=== PATIENT | female | born 1985 | race Caucasian/White ===

== ENCOUNTER → 2016-05-26 | Outpatient (CLI) | payer BC ==
[~2016-05-26] MED LIST: LEVO100T PO; PREN1TAB29
[2016-05-26 14:36] LABS: URINE APPEARANCE CLOUDY (CLEAR); URINE BILIRUBIN NEG (NEG); URINE COLOR YELLOW; URINE EPITHELIAL CELL AUTO >30 /lpf (0-5); URINE NITRITE NEG (NEG); URINE PH 7.5 (4.5-7.5); URINE SPECIFIC GRAVITY 1.008 (1.000-1.030); UROBILINOGEN NEG (NEG)
[2016-05-26 14:47] LABS: MANUAL MICROSCOPIC REQUIRED? NO; REVIEW REQ? YES; SULFASALICYLIC ACID NEG (NEG)
== END | disposition home or self-care (01) ==
LOC: C.LAB1850 13:41
PROVIDERS: ATTEND Obstetrics & Gynecology
DX: R39.9 Unspecified symptoms and signs involving the genitourinary system (principal)

== ENCOUNTER 2022-10-05 15:16 | Inpatient (IN) ==
[2022-10-05] MEDS ORDERED: SODIUM CHLORIDE 0.9% 1000ML 1,000 ML IV SCH (15:30)
--- NOTE | 2022-10-05 15:32 | Emergency Department Note ---
Impression & Plan Seizure ED Provider Note NAME: KYLEIGH DEVRIES AGE: 36 SEX: F : 1985 ARRIVES VIA: Ambulance INFORMANT: Patient ED PROVIDER(S): Pavan Goncalves DO CHIEF COMPLAINT: seizure HPI: Patient is a 36-year-old female who presents to the ER with past medical history of COVID for a seizure. She was at the [facility] and had 2 episodes where she passed out and was shaking. On arrival of EMS she was found to be postictal per report from EMS. She notes that she does not remember any of this. She had no complaints before or following the episode. She notes that now she does feel little nauseated and dizzy. No headache or change in vision preceding or following this event. No chest pain or shortness of breath preceding or following. No weakness or numbness in the arms or legs. No dysuria, urgency, or frequency. No other exacerbating or remitting factors. Ileana montiel admits to drinking alcohol very intermittently. She denies any other drugs other than levothyroxine. PAST MEDICAL HISTORY:See Below PAST SURGICAL HISTORY:See Below FAMILY HISTORY:See Below SOCIAL HISTORY:See Below HOME MEDICATIONS:See Below ALLERGIES:See Below VITALS:See Below PHYSICAL EXAMINATION: GENERAL: Sitting up in bed, alert, well appearing, well nourished, no distress, non-toxic EYE EXAM: normal conjunctiva. PERRL and EOM's intact. OROPHARYNX: no exudate, no erythema, lips, buccal mucosa, and tongue normal and mucous membranes are moist NECK: supple, no nuchal rigidity, no adenopathy, non-tender LUNGS: Clear to auscultation. Normal chest wall mechanics HEART: no murmurs, S1 normal and S2 normal ABDOMEN: abdomen soft, non-tender, normo-active bowel sounds, no masses, no rebound or guarding. BACK: Back is symmetrical on inspection and there is no deformity, no midline tenderness, no CVA tenderness. SKIN: no rashes and no bruising UPPER EXTREMITIES: upper extremities are grossly normal. LOWER EXTREMITIES: No pitting edema. NEURO EXAM: Normal sensorium, cranial nerves II-XII intact, normal speech, no weakness of arms, no weakness of legs. No drift. Finger to nose intact. Gross sensation intact. MEDICAL DECISION MAKING: Patient is a 36-year-old female who had 2 witnessed seizures and was brought in by EMS found to be postictal by EMS per report. IV was established blood work was obtained. Labs show no significant leukocytosis or anemia. BMP with mild hypokalemia 3.1. This was repleted orally. LFTs bilirubin was unremarkable. Troponin was negative. UA was clean. negative. Tox was negative. Patient notes that she drinks intermittently and not regularly. CT of the head was negative. Chest x-ray was clean. With her having 2 seizures she was given 2 g of Keppra. She was discussed with the hospitalist for observation. Triage Nursing notes reviewed. Limited review of prior medical records performed Vital Signs: reviewed and remarkable for no significant abnormalities Differential diagnosis: Differential diagnosis includes etiologies such as infection, hypoglycemia, electrolyte abnormalities, cardiac sources, intracerebral event, trauma, toxicologic, neurologic, as well as others were entertained. ER treatment provided: See below Diagnostics interpreted by me include EKG and cardiac monitoring as listed below: -Cardiac Monitoring: An order was placed for continuous cardiac monitoring. The monitor shows a rate of 56 with sinus rhythm. -ECG: Sinus rhythm rate of 46 Normal axis No PVCs QTc 418 -Laboratory studies:Interpreted by me as stated above in MDM and shown below. Imaging studies: Xrays: As interpreted by me: Portable AP upright 1 view of the chest shows no pneumonia CTs show: CT head was negative Consultation(s): As described in MDM Procedures:none Critical Care: None Past Med/Surg History Medical History (Updated 10/05/22 @ 21:02 by Pavan Goncalves DO) Hypothyroidism Surgical History History of dental surgery history of dental implant Family History Other Diabetes Dyslipidemia Stroke Social History (Updated 10/05/22 @ 19:32 by Larisa Andrew PA-C) Smoking Status: Never smoker Hx Alcohol Use: Yes (4 drinks a week) Hx Substance Use: No Preferred Language: Faroese marital status: Current Living Situation: Family current occupational status: employed Feels Safe at Home: Yes Allergies Allergies Allergy/AdvReac Type Severity Reaction Status Date / Time No Known Allergies Allergy Unverified 12/29/15 03:22 Home Meds Home Medications Medication Instructions Recorded Confirmed levothyroxine 100 mcg tablet 100 mcg PO DAILYBB 10/05/22 10/05/22 Results & Data (ED) Vital Signs Vital Signs - 24 hr 10/05/22 15:24 10/05/22 15:41 10/05/22 15:41 Temperature 36.9 C Temperature Source Oral Pulse Rate 52 L 50 L 48 L Pulse Rate from SpO2 Sensor 47 L Respiratory Rate 18 17 Blood Pressure 153/87 H Blood Pressure Mean 109 Pulse Oximetry 100 92 Oxygen Delivery Method Room Air Sepsis Recent Fever Within 48 Hours No Sepsis New/Unexplained Change in Mental Status No Sepsis Action Taken by Nursing No Action Required 10/05/22 16:00 10/05/22 16:00 10/05/22 16:30 Temperature Temperature Source Pulse Rate 49 L Pulse Rate from SpO2 Sensor 49 L Respiratory Rate 24 Blood Pressure 144/92 H 143/92 H Blood Pressure Mean 123 126 Pulse Oximetry 100 Oxygen Delivery Method Sepsis Recent Fever Within 48 Hours Sepsis New/Unexplained Change in Mental Status Sepsis Action Taken by Nursing 10/05/22 16:30 10/05/22 17:00 10/05/22 17:00 Temperature Temperature Source Pulse Rate 56 L 53 L Pulse Rate from SpO2 Sensor 54 L 52 L Respiratory Rate 20 23 Blood Pressure 161/106 H Blood Pressure Mean 140 Pulse Oximetry 99 100 Oxygen Delivery Method Sepsis Recent Fever Within 48 Hours Sepsis New/Unexplained Change in Mental Status Sepsis Action Taken by Nursing 10/05/22 19:45 10/05/22 20:12 Temperature Temperature Source Pulse Rate 55 L Pulse Rate from SpO2 Sensor Respiratory Rate 21 Blood Pressure 141/87 H Blood Pressure Mean 105 Pulse Oximetry 92 96 Oxygen Delivery Method Room Air Sepsis Recent Fever Within 48 Hours Sepsis New/Unexplained Change in Mental Status Sepsis Action Taken by Nursing Laboratory Data 10/05/22 15:42 10/05/22 15:42 Lab Results 10/05/22 10/05/22 10/05/22 Range/Units 15:42 15:42 17:15 WBC 8.28 (4.8-10.8) K/ul RBC 4.33 (4.20-5.40) M/uL Hgb 12.9 (12.0-16.0) g/dl Hct 37.3 (37.0-47.0) % MCV 86.1 (80.0-100.0) fL MCH 29.8 (25.0-34.0) pg MCHC 34.6 (32.0-36.0) g/dL RDW Std Deviation 38.1 (36.4-46.3) fL RDW Coeff of Yoel 12.1 (11.5-14.5) % Plt Count 251 (130-400) K/uL MPV 10.4 (9.4-12.4) fL Immature Gran % (Auto) 0.1 % Neut % (Auto) 49.3 % Lymph % (Auto) 41.4 % Scott % (Auto) 7.0 % Eos % (Auto) 1.4 % Baso % (Auto) 0.8 % Neut # (Auto) 4.07 (1.40-6.50) K/uL Lymph # (Auto) 3.43 H (1.2-3.4) K/uL Scott # (Auto) 0.58 (0.11-0.59) K/uL Eos # (Auto) 0.12 (0-0.50) K/uL Baso # (Auto) 0.07 (0-0.2) K/uL Immature Gran # (Auto) 0.01 (0.01-0.20) K/uL Sodium 137 (136-145) mmol/L Potassium 3.1 L (3.5-5.1) mmol/L Chloride 104 (98-107) mmol/L Carbon Dioxide 22 (21-32) mmol/L Anion Gap 11 (3-11) BUN 15 (6-23) mg/dl Creatinine 0.76 (0.6-1.2) mg/dl Est Cr Clr Drug Dosing 105.4 ml/min Est GFR ( Amer) 115.3 ml/min Est GFR (Non-Af Amer) 99.5 ml/min BUN/Creatinine Ratio 19.7 (10-20) Glucose 101 H (70-99(Fasting)) mg/dl Calcium 9.1 (8.6-10.3) mg/dl Magnesium 1.9 (1.7-2.4) mg/dl Total Bilirubin 1.1 H (0.2-1.0) mg/dl AST 15 (13-39) U/L ALT 9 (7-52) U/L Alkaline Phosphatase 29 L (34-104) U/L Troponin I High Sens 7.8 (0-14) pg/ml Total Protein 7.1 (6.0-8.3) gm/dl Albumin 4.2 (3.4-5.0) gm/dl Globulin 2.9 (2.5-4.0) gm/dl Albumin/Globulin Ratio 1.4 (0.9-2) Urine Color Yellow Urine Appearance Clear (Clear) Urine pH 7.5 (4.5-7.5) Ur Specific [place] 1.012 (1.000-1.030) Urine Protein Negative (Negative) Urine Glucose (UA) Negative (Negative) Urine Ketones Negative (Negative) Urine Blood Negative (Negative) Urine Nitrite Negative (Negative) Urine Bilirubin Negative (Negative) Urine Urobilinogen Negative (Negative) Ur Leukocyte Esterase Negative (Negative) POC Ur Test (NEG) Urine Opiates Screen (Neg) Ur Methadone, Qual (Neg) Urine Barbiturates (Neg) Ur Phencyclidine (PCP) (Neg) U Amphetamin/Meth Scrn (Neg) MDMA (Ecstasy) Screen (Neg) U Benzodiazepines Scrn (Neg) Ur Cocaine Metabolite (Neg) U Marijuana (THC) Screen (Neg) SARS-CoV-2, RNA, NAAT (NEGATIVE) 10/05/22 10/05/22 10/05/22 Range/Units 17:15 17:15 18:00 WBC (4.8-10.8) K/ul RBC (4.20-5.40) M/uL Hgb (12.0-16.0) g/dl Hct (37.0-47.0) % MCV (80.0-100.0) fL MCH (25.0-34.0) pg MCHC (32.0-36.0) g/dL RDW Std Deviation (36.4-46.3) fL RDW Coeff of Yoel (11.5-14.5) % Plt Count (130-400) K/uL MPV (9.4-12.4) fL Immature Gran % (Auto) % Neut % (Auto) % Lymph % (Auto) % Scott % (Auto) % Eos % (Auto) % Baso % (Auto) % Neut # (Auto) (1.40-6.50) K/uL Lymph # (Auto) (1.2-3.4) K/uL Scott # (Auto) (0.11-0.59) K/uL Eos # (Auto) (0-0.50) K/uL Baso # (Auto) (0-0.2) K/uL Immature Gran # (Auto) (0.01-0.20) K/uL Sodium (136-145) mmol/L Potassium (3.5-5.1) mmol/L Chloride (98-107) mmol/L Carbon Dioxide (21-32) mmol/L Anion Gap (3-11) BUN (6-23) mg/dl Creatinine (0.6-1.2) mg/dl Est Cr Clr Drug Dosing ml/min Est GFR ( Amer) ml/min Est GFR (Non-Af Amer) ml/min BUN/Creatinine Ratio (10-20) Glucose (70-99(Fasting)) mg/dl Calcium (8.6-10.3) mg/dl Magnesium (1.7-2.4) mg/dl Total Bilirubin (0.2-1.0) mg/dl AST (13-39) U/L ALT (7-52) U/L Alkaline Phosphatase (34-104) U/L Troponin I High Sens (0-14) pg/ml Total Protein (6.0-8.3) gm/dl Albumin (3.4-5.0) gm/dl Globulin (2.5-4.0) gm/dl Albumin/Globulin Ratio (0.9-2) Urine Color Urine Appearance (Clear) Urine pH (4.5-7.5) Ur Specific [place] (1.000-1.030) Urine Protein (Negative) Urine Glucose (UA) (Negative) Urine Ketones (Negative) Urine Blood (Negative) Urine Nitrite (Negative) Urine Bilirubin (Negative) Urine Urobilinogen (Negative) Ur Leukocyte Esterase (Negative) POC Ur Test NEG (NEG) Urine Opiates Screen Neg (Neg) Ur Methadone, Qual Neg (Neg) Urine Barbiturates Neg (Neg) Ur Phencyclidine (PCP) Neg (Neg) U Amphetamin/Meth Scrn Neg (Neg) MDMA (Ecstasy) Screen Neg (Neg) U Benzodiazepines Scrn Neg (Neg) Ur Cocaine Metabolite Neg (Neg) U Marijuana (THC) Screen Neg (Neg) SARS-CoV-2, RNA, NAAT NEGATIVE (NEGATIVE) Administered Medications Discontinued Medications Sodium Chloride (Nss 1000ml) 1,000 mls @ 999 mls/hr IV .Q1H1M LIBIA Stop: 10/05/22 16:30 Last Infusion: 10/05/22 19:11 Dose: 0 mls/hr Documented By: Admin: 10/05/22 15:45 Dose: 999 mls/hr Documented By: KOSTAS Levetiracetam 2,000 mg/ Sodium (Chloride) 270 mls @ 999 mls/hr IV NOW STA Stop: 10/05/22 15:48 Last Infusion: 10/05/22 16:00 Dose: 0 mls/hr Documented By: Admin: 10/05/22 15:45 Dose: 999 mls/hr Documented By: KOSTAS Potassium Chloride (Potassium Chloride Crtab 20 Meq Tabcr) 40 meq PO NOW STA Stop: 10/05/22 16:32 Last Admin: 10/05/22 17:21 Dose: 40 meq Documented By: KOSTAS Imaging Data Radiologist's Impression: Chest X-Ray 10/05/22 16:31 XR chest 1V portable CLINICAL HISTORY: seizure TECHNIQUE: Single frontal radiograph of the chest was obtained. Comparison: None available at the time of this dictation. FINDINGS: No lines and tubes are seen. The cardiomediastinal silhouette is normal. The lungs are clear. No evidence of pleural effusion or pneumothorax. IMPRESSION: No acute chest disease. ACT 112: Negative or not required by law. Electronically signed by: Saji Brooke M.D. 10/05/2022 5:[address] 10/05/22 16:31 CT head/brain wo con CLINICAL HISTORY: seizure Technique: Contiguous axial CT images of the head were acquired from the base of the skull to the vertex without intravenous contrast administration. Images were viewed in brain, subdural and bone windows. Automated dose lowering techniques and/or adjustment according to patient size were utilized for this exam. Comparison: Comparison is made to CTA head and neck 11/11/2021 Findings: The ventricles, basal cisterns, and cerebral sulci are normal. There is no acute intracranial hemorrhage or evidence of acute territorial infarction. Neither mass effect, shift of the midline structures, nor abnormal extra-axial fluid col lections are shown. Imaged portions of the paranasal sinuses and mastoid air cells are clear. The orbits appear normal. There are no acute fractures of the calvaria or scalp swelling. Impression: No acute intracranial hemorrhage, no evidence of acute territorial infarction or other acute intracranial disease process. ACT 112: Negative or not required by law. Electronically signed by: Saji Brooke M.D. 10/05/2022 5:25 PM Discharge Plan Visit Data Chief Complaint: Seizure Stated Complaint: SEIZURES, NO HISTORY OF ED Provider: Pavan Goncalves Discharge Problem: Seizure Forms Stand Alone Forms: My [facility] Prescriptions Prescriptions: No Action levothyroxine 100 mcg tablet 100 mcg PO DAILYBB Referrals Referrals: Danny Thurston MD [Outside Practitioners] -
[2022-10-05 16:02] LABS: Basophils # (auto) 0.07 K/uL (0-0.2); Basophils % (auto) 0.8 %; Eosinophils # (auto) 0.12 K/uL (0-0.50); Eosinophils % (auto) 1.4 %; Hematocrit (blood only) 37.3 % (37.0-47.0); Hemoglobin 12.9 g/dl (12.0-16.0); Immature Granulocytes # (auto) 0.01 K/uL (0.01-0.20); Immature Granulocytes % (auto) 0.1 %; Lymphocytes # (auto) 3.43 K/uL (1.2-3.4); Lymphocytes % (auto) 41.4 %; Mean Corpuscular Hemoglobin 29.8 pg (25.0-34.0); Mean Corpuscular Hgb Conc 34.6 g/dL (32.0-36.0); Mean Corpuscular Volume 86.1 fL (80.0-100.0); Mean Platelet Volume 10.4 fL (9.4-12.4); Monocytes # (auto) 0.58 K/uL (0.11-0.59); Neutrophils # (auto) 4.07 K/uL (1.40-6.50); Neutrophils % (auto) 49.3 %; Platelet Count 251 K/uL (130-400); RDW Coefficient of Variation 12.1 % (11.5-14.5); RDW Standard Deviation 38.1 fL (36.4-46.3); Red Blood Count 4.33 M/uL (4.20-5.40); White Blood Count 8.28 K/ul (4.8-10.8)
[2022-10-05 16:19] LABS: Albumin Globulin Ratio 1.4 (0.9-2); Albumin Level 4.2 gm/dl (3.4-5.0); BUN Creatinine Ratio 19.7 (10-20); Bilirubin,Total 1.1 mg/dl (0.2-1.0); Calcium 9.1 mg/dl (8.6-10.3); Creatinine Clr Calc Pharmacy 105.4 ml/min; Est GFR (African American) 115.3 ml/min; Est GFR (Non-African American) 99.5 ml/min; Globulin 2.9 gm/dl (2.5-4.0); Potassium 3.1 mmol/L (3.5-5.1); Total Protein 7.1 gm/dl (6.0-8.3)
[2022-10-05] MEDS ORDERED: POTASSIUM CHLORIDE CRTAB 20 MEQ TABCR PO STA ×2 (16:31→18:26)
--- NOTE | 2022-10-05 17:17 | XRay Report ---
XR chest 1V portable CLINICAL HISTORY: seizure TECHNIQUE: Single frontal radiograph of the chest was obtained. Comparison: None available at the time of this dictation. FINDINGS: No lines and tubes are seen. The cardiomediastinal silhouette is normal. The lungs are clear. No evid ence of pleural effusion or pneumothorax. IMPRESSION: No acute chest disease. ACT 112: Negative or not required by law. Electronically signed by: Saji Brooke M.D. 10/05/2022 5:16 PM
--- NOTE | 2022-10-05 17:27 | CT Scan Report ---
CT head/brain wo con CLINICAL HISTORY: seizure Technique: Contiguous axial CT images of the head were acquired from the base of the skull to the xander daksha without intravenous contrast administration. Images were viewed in brain, subdural and bone [facility] . Automated dose lowering techniques and/or adjustment according to patient size were utilized for this exam. Comparison: Comparison is made to CTA head and neck 11/11/2021 Findings: The ventricles, basal cisterns, and cerebral sulci are normal. There is no acute intracranial hemorrh age or evidence of acute territorial infarction. Neither mass effect, shift of the midline structures , nor abnormal extra-axial fluid collections are shown. Imaged portions of the paranasal sinuses and mastoid air cells are clear. The orbits appear normal. There are no acute fractures of the calvaria or scalp swelling. Impression: No acute intracranial hemorrhage, no evidence of acute territorial infarction or other acute intracra nial disease process. ACT 112: Negative or not required by law. Electronically signed by: Saji Brooke M.D. 10/05/2022 5:25 PM
[2022-10-05 17:45] LABS: Appearance Urine Clear (Clear); Bilirubin Urine Negative (Negative); Blood Urine Negative (Negative); Color Urine Yellow; Glucose Urine UA Negative (Negative); Ketones Urine Negative (Negative); Leukocyte Esterase Urine Negative (Negative); Nitrite Urine Negative (Negative); Protein Urine Negative (Negative); Specific Gravity Urine 1.012 (1.000-1.030); Urobilinogen Urine Negative (Negative); pH Urine 7.5 (4.5-7.5)
--- NOTE | 2022-10-05 18:00 | History & Physical Report ---
Date of Service October 05, 2022 Assessment & Plan (1) Seizure: Plan: Patient is 36-year-old female with PMH hypothyroidism presented to ER with complaint of seizure that occurred prior to arrival today. +loss of control of bladder. Reported postictal. Currently back to baseline CT head: No acute intracranial hemorrhage, no evidence of acute territorial infarction or other acute intracranial disease process. CXR: No acute infiltrate No leukocytosis. K: 3.1, no other significant electrolyte abnormality. UA negative, negative urine drug screen. Negative urine . Negative SARS-CoV-2. In ER given 1 L NSS, Keppra 2000 mg IV Seizure precautions Keppra 500 mg twice daily EEG MRI brain if able. Patient reports dental implant approximately 6 months ago. Will try to check MRI compatibility Neurology consult (2) Hypokalemia: Plan: In ER given 40 mg potassium chloride p.o. Replace with additional 20 mg potassium chloride p.o. BMP tonight Magnesium: 1.9 BMP in a.m. (3) Elevated BP without diagnosis of hypertension: Plan: Initial BP in ER 161/106 however has been downtrending throughout ER course Monitor BP (4) Hypothyroidism: Plan: Continue levothyroxine TSH on a.m. labs DVT Prophylaxis SCDs Full Code as per discussion with pt Follows with Dr Morales for routine care Pt was seen and care coordinated with Dr Ochoa. See addendum I spent a total of 75 minutes reviewing notes, outpatient records, labs, medication, coordinating, documenting and providing care for this patient excluding time spent in the performance of separately billed services. History of Present Illness Chief Complaint: Seizure Primary Care Provider: Claudia Morales MD Patient is 36-year-old female with PMH hypothyroidism presented to ER with complaint of seizure. Patients states was at the spa today. She had massage, facial, pedicure. She was feeling her normal health. Then she was sitting ge tting her nails done when it is reported patient appeared to have loss of consciousness, had noted jerking movements. Bystander reported patient's lips appeared blue. Patient had loss of control of bladder. It is reported when EMS arrived patient appeared postictal and was not alert or oriented. Is reported approximately 10 minutes later patient was alert and oriented. Patient states that she remembers somebody holding her head and shoulders and the next thing she remembers is states remembers being in ambulance and feeling nauseated. Currently patient states feels a little nauseated with sitting up or standing. Denies recent head injury. Reports history concussion 2 years ago. Denies history of seizures. Denies family history of seizures. States drank one glass champagne today. Denies drug use. 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 Denies any known chemical exposures. Denies fever/chills, diaphoresis, vomiting, diarrhea, loss of control of bowels, ST, dizziness, vision changes, neck pain, CP, SOB, palpitations, cough, sore throat, rhinorrhea, abdominal pain, paresthesias, extremity weakness, extremity edema, rashes, urinary symptoms. Allergies Allergy/AdvReac Type Severity Reaction Status Date / Time No Known Allergies Allergy Unverified 12/29/15 03:22 Home Medications Medication Instructions Recorded Confirmed Type levothyroxine 100 mcg tablet 100 mcg PO DAILYBB 10/05/22 10/05/22 History Past Med/Surg History Medical History (Updated 10/05/22 @ 19:33 by Larisa Andrew PA-C) Hypothyroidism Surgical History History of dental surgery history of dental implant Family History Other Diabetes Dyslipidemia Stroke Social History (Updated 10/05/22 @ 19:32 by Larisa Andrew PA-C) Smoking Status: Never smoker Hx Alcohol Use: Yes (4 drinks a week) Hx Substance Use: No Preferred Language: Ugandan marital status: Current Living Situation: Family current occupational status: employed Feels Safe at Home: Yes Review of Systems Review of Systems: All systems reviewed & are unremarkable except as noted in HPI & below Physical Exam Physical Exam: PE per Dr Ochoa Results & Data Results & Data Vital Signs (Past 12 Hours) Vital Signs Temp Pulse Resp BP Pulse Ox O2 Del Method 10/05/22 17:00 53 L 23 100 10/05/22 17:00 161/106 H 10/05/22 16:30 56 L 20 99 10/05/22 16:30 143/92 H 10/05/22 16:00 49 L 24 100 10/05/22 16:00 144/92 H 10/05/22 15:41 48 L 17 92 10/05/22 15:41 50 L 10/05/22 15:24 36.9 C 52 L 18 153/87 H 100 Room Air Laboratory Results Short CBC 10/05/22 Range/Units 15:42 WBC 8.28 (4.8-10.8) K/ul Hgb 12.9 (12.0-16.0) g/dl Hct 37.3 (37.0-47.0) % Plt Count 251 (130-400) K/uL BMP 10/05/22 15:42 Sodium 137 Potassium 3.1 L Chloride 104 Carbon Dioxide 22 BUN 15 Creatinine 0.76 Glucose 101 H Calcium 9.1 Liver Function 10/05/22 Range/Units 15:42 Total Bilirubin 1.1 H (0.2-1.0) mg/dl AST 15 (13-39) U/L ALT 9 (7-52) U/L Alkaline Phosphatase 29 L (34-104) U/L Albumin 4.2 (3.4-5.0) gm/dl Urine 10/05/22 Range/Units 17:15 Urine Color Yellow Urine Appearance Clear (Clear) Urine pH 7.5 (4.5-7.5) Ur Specific [place] 1.012 (1.000-1.030) Urine Protein Negative (Negative) Urine Glucose (UA) Negative (Negative) Diagnostic Findings Chest X-Ray 10/05/22 16:31 XR chest 1V portable CLINICAL HISTORY: seizure TECHNIQUE: Single frontal radiograph of the chest was obtained. Comparison: None available at the time of this dictation. FINDINGS: No lines and tubes are seen. The cardiomediastinal silhouette is normal. The lungs are clear. No evidence of pleural effusion or pneumothorax. IMPRESSION: No acute chest disease. ACT 112: Negative or not required by law. Electronically signed by: Saji Brooke M.D. 10/05/2022 5:[address] 10/05/22 16:31 CT head/brain wo con CLINICAL HISTORY: seizure Technique: Contiguous axial CT images of the head were acquired from the base of the skull to the vertex without intravenous contrast administration. Images were viewed in brain, subdural and bone windows. Automated dose lowering techniques and/or adjustment according to patient size were utilized for this exam. Comparison: Comparison is made to CTA head and neck 11/11/2021 Findings: The ventricles, basal cisterns, and cerebral sulci are normal. There is no acute intracranial hemorrhage or evidence of acute territorial infarction. Neither mass effect, shift of the midline structures, nor abnormal extra-axial fluid collections are shown. Imaged portions of the paranasal sinuses and mastoid air cells are clear. The orbits appear normal. There are no acute fractures of the calvaria or scalp swelling. Impression: No acute intracranial hemorrhage, no evidence of acute territorial infarction or other acute intracranial disease process. ACT 112: Negative or not required by law. Electronically signed by: Saji Brooke M.D. 10/05/2022 5:25 PM ECG Rhythm: sinus bradycardia
[2022-10-05 18:05] LABS: Amphetamines+Metham, Urine Neg (Neg); Barbiturates, Urine Neg (Neg); Benzodiazepine, Urine Neg (Neg); Cocaine, Urine Neg (Neg); MDMA (Ecstacy), Urine Neg (Neg); Methadone, Urine Neg (Neg); Opiate, Urine Neg (Neg); Phencyclidine, Urine Neg (Neg)
[2022-10-05 18:34] LABS: Magnesium 1.9 mg/dl (1.7-2.4)
--- NOTE | 2022-10-05 18:37 | Electrocardiogram Report ---
Test Reason : Blood Pressure : / mmHG Vent. Rate : 046 BPM Atrial Rate : 046 BPM P-R Int : 172 ms QRS Dur : 094 ms QT Int : 478 ms P-R-T Axes : 041 041 009 degrees QTc Int : 418 ms Sinus bradycardia Abnormal ECG No previous ECGs available Confirmed by Sterling Wilkins ([id number]) on 10/05/2022 6:37:02 PM Referred By: Confirmed By:Ovidio Wilkins
[2022-10-05 18:54] LABS: Troponin I High Sensitivity 7.8 pg/ml (0-14)
--- NOTE | 2022-10-05 19:25 | Communication Note ---
Date of Service: October 05, 2022 36 year old woman with hypothyroidism who presented after a seizure episode at the [facility]. She reported she was in normal state of health with no complaints prior to spa day. She stated she lost consciousness and when she came to she had people holding her to her side and she was confused. She was told she had '2 convulsive episodes with shaking of all extremities and lips turned blue' She reported bladder incontinence during the episode. Currently reports only some dizziness and nausea Denied smoking, illicit drug use, family h/o seizures, OTC meds. Reports only occasional alcohol intake Denied any allergies General: Well nourished, well hydrated, no acute distress Eyes: PERRL, conjunctivae normal, not pale, anicteric sclerae, EOM intact bilaterally ENMT: External ear and nose normal, oropharynx normal Respiratory: Normal respiratory effort, no respiratory distress, lungs clear to auscultation, no crackles and no wheezes Cardiovascular: Pulse is RRR. S1 S2 Gastrointestinal (Abdomen): Abdomen is not distended, soft, non-tender to palpation, no guarding, no palpable hepatosplenomegaly, normal bowel sounds Musculoskeletal: No cyanosis or clubbing, all extremities motor strength 5/5. No pedal edema Neurologic: Alert and oriented x 3, No focal weakness, sensation grossly intact, power is equal in all extremities Psychiatric: Euthymic affect CT head did not show any acute abnormality or bleed. Old CT and CTA head/neck from last year 10/2021 noted no acute abnormality, basilar artery and post cerebral arteries appear hypoplastic and irregular Patient was loaded with keppra Had hypokalemia. Replete and recheck potassium level tonight Will get MRI brain Continue keppra 500mg bid for now Neuro c/s EEG Other plans as detailed by Larisa Andrew PA-C
[2022-10-05] MEDS ORDERED: POLYETHYLENE (MIRALAX) 17 GM PACK PO PRN (21:21)
[2022-10-05] MEDS ORDERED: ONDANSETRON INJ 2 MG/ML 2 ML VIAL IV PRN (21:21)
[2022-10-05] MEDS ORDERED: ACETAMINOPHEN 325 MG TAB PO PRN (21:21)
[2022-10-05] MEDS: levETIRAcetam 500 MG TAB PO SCH (21:52)
[2022-10-05 22:18] LABS: BUN Creatinine Ratio 16.5 (10-20); Creatinine Clr Calc Pharmacy 93.7 ml/min; Est GFR (African American) 110.1 ml/min; Potassium 4.2 mmol/L (3.5-5.1)
[2022-10-06] MEDS ORDERED: LEVOTHYROXINE SODIUM 100 MCG TABLET PO SCH (06:30)
[2022-10-06 07:24] LABS: Hemoglobin 13.6 g/dl (12.0-16.0); Mean Corpuscular Hgb Conc 34.9 g/dL (32.0-36.0); Mean Corpuscular Volume 86.1 fL (80.0-100.0); Mean Platelet Volume 10.8 fL (9.4-12.4); Platelet Count 246 K/uL (130-400); RDW Coefficient of Variation 12.5 % (11.5-14.5); RDW Standard Deviation 39.2 fL (36.4-46.3); Red Blood Count 4.53 M/uL (4.20-5.40); White Blood Count 6.54 K/ul (4.8-10.8)
[2022-10-06] MEDS: levETIRAcetam 500 MG TAB PO SCH (07:46)
[2022-10-06 07:48] LABS: BUN Creatinine Ratio 15.6 (10-20); Calcium 9.2 mg/dl (8.6-10.3); Creatinine Clr Calc Pharmacy 96.1 ml/min; Est GFR (African American) 113.5 ml/min; Est GFR (Non-African American) 97.9 ml/min; Magnesium 2.2 mg/dl (1.7-2.4)
--- NOTE | 2022-10-06 12:08 | Communication Note ---
Date of Service: October 06, 2022 Per MRI department, unable to do MRI due to piece of metal stuck in her jaw, hence MRI cancelled per request.
--- NOTE | 2022-10-06 14:15 | Discharge Summary ---
Date of Service October 06, 2022 Admission HPI Per Admitting Provider Patient is 36-year-old female with PMH hypothyroidism presented to ER with complaint of seizure. Patients states was at the spa today. She had massage, facial, pedicure. She was feeling her normal health. Then she was sitting getting her nails done when it is reported patient appeared to have loss of consciousness, had noted jerking movements. Bystander reported patient's lips appeared blue. Patient had loss of control of bladder. It is reported when EMS arrived patient appeared postictal and was not alert or oriented. Is reported approximately 10 minutes later patient was alert and oriented. Patient states t hat she remembers somebody holding her head and shoulders and the next thing she remembers is states remembers being in ambulance and feeling nauseated. Currently patient states feels a little nauseated with sitting up or standing. Denies recent head injury. Reports history concussion 2 years ago. Denies history of seizures. Denies family history of seizures. States drank one glass champagne today. Denies drug use. 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 Denies any known chemical exposures. Denies fever/chills, diaphoresis, vomiting, diarrhea, loss of control of bowels, ST, dizziness, vision changes, neck pain, CP, SOB, palpitations, cough, sore throat, rhinorrhea, abdominal pain, paresthesias, extremity weakness, extremity edema, rashes, urinary symptoms. Admission Exam Per Admitting Provider General: Well nourished, well hydrated, no acute distress Eyes: PERRL, conjunctivae normal, not pale, anicteric sclerae, EOM intact bilaterally ENMT: External ear and nose normal, oropharynx normal Respiratory: Normal respiratory effort, no respiratory distress, lungs clear to auscultation, no crackles and no wheezes Cardiovascular: Pulse is RRR. S1 S2 Gastrointestinal (Abdomen): Abdomen is not distended, soft, non-tender to palpation, no guarding, no palpable hepatosplenomegaly, normal bowel sounds Musculoskeletal: No cyanosis or clubbing, all extremities motor strength 5/5. No pedal edema Neurologic: Alert and oriented x 3, No focal weakness, sensation grossly intact, power is equal in all extremities Psychiatric: Euthymic affect Principal Diagnosis Seizure Discharge Exam General: Lying comfortably in bed, not in distress, on room air HEENT: EOMI, JOSE, MMM Chest: Clear breath sounds bilaterally, no wheezes or crackles CVS: Bradycardia, normal heart sounds, no murmur Abdomen: Soft, non tender, not distended, normal bowel sounds Neuro: Awake, alert, oriented, conversing well, non focal Extremities: No cyanosis, clubbing or edema Discharge Data Allergies Allergy/AdvReac Type Severity Reaction Status Date / Time No Known Allergies Allergy Unverified 12/29/15 03:22 Consultations 10/05/22 17:50 ED Decision to Admit Stat 10/05/22 21:21 Consult Neurology Routine Ordered Studies Laboratory Results WBC 6.54 K/ul (4.8-10.8) 10/06/22 06:44 RBC 4.53 M/uL (4.20-5.40) 10/06/22 06:44 Hgb 13.6 g/dl (12.0-16.0) 10/06/22 06:44 Hct 39.0 % (37.0-47.0) 10/06/22 06:44 MCV 86.1 fL (80.0-100.0) 10/06/22 06:44 MCH 30.0 pg (25.0-34.0) 10/06/22 06:44 MCHC 34.9 g/dL (32.0-36.0) 10/06/22 06:44 RDW Std Deviation 39.2 fL (36.4-46.3) 10/06/22 06:44 RDW Coeff of Yoel 12.5 % (11.5-14.5) 10/06/22 06:44 Plt Count 246 K/uL (130-400) 10/06/22 06:44 MPV 10.8 fL (9.4-12.4) 10/06/22 06:44 Immature Gran % (Auto) 0.1 % 10/05/22 15:42 Neut % (Auto) 49.3 % 10/05/22 15:42 Lymph % (Auto) 41.4 % 10/05/22 15:42 Crook % (Auto) 7.0 % 10/05/22 15:42 Eos % (Auto) 1.4 % 10/05/22 15:42 Baso % (Auto) 0.8 % 10/05/22 15:42 Neut # (Auto) 4.07 K/uL (1.40-6.50) 10/05/22 15:42 Lymph # (Auto) 3.43 K/uL (1.2-3.4) H 10/05/22 15:42 Crook # (Auto) 0.58 K/uL (0.11-0.59) 10/05/22 15:42 Eos # (Auto) 0.12 K/uL (0-0.50) 10/05/22 15:42 Baso # (Auto) 0.07 K/uL (0-0.2) 10/05/22 15:42 Immature Gran # (Auto) 0.01 K/uL (0.01-0.20) 10/05/22 15:42 Sodium 139 mmol/L (136-145) 10/06/22 06:44 Potassium 4.0 mmol/L (3.5-5.1) 10/06/22 06:44 Chloride 106 mmol/L (98-107) 10/06/22 06:44 Carbon Dioxide 28 mmol/L (21-32) 10/06/22 06:44 Anion Gap 5 (3-11) 10/06/22 06:44 BUN 12 mg/dl (6-23) 10/06/22 06:44 Creatinine 0.77 mg/dl (0.6-1.2) 10/06/22 06:44 Est Cr Clr Drug Dosing 96.1 ml/min 10/06/22 06:44 Est GFR ( Amer) 113.5 ml/min 10/06/22 06:44 Est GFR (Non-Af Amer) 97.9 ml/min 10/06/22 06:44 BUN/Creatinine Ratio 15.6 (10-20) 10/06/22 06:44 Glucose 95 mg/dl (70-99(Fasting)) 10/06/22 06:44 Calcium 9.2 mg/dl (8.6-10.3) 10/06/22 06:44 Magnesium 2.2 mg/dl (1.7-2.4) 10/06/22 06:44 Total Bilirubin 1.1 mg/dl (0.2-1.0) H 10/05/22 15:42 AST 15 U/L (13-39) 10/05/22 15:42 ALT 9 U/L (7-52) 10/05/22 15:42 Alkaline Phosphatase 29 U/L (34-104) L 10/05/22 15:42 Troponin I High Sens 7.8 pg/ml (0-14) 10/05/22 15:42 Total Protein 7.1 gm/dl (6.0-8.3) 10/05/22 15:42 Albumin 4.2 gm/dl (3.4-5.0) 10/05/22 15:42 Globulin 2.9 gm/dl (2.5-4.0) 10/05/22 15:42 Albumin/Globulin Ratio 1.4 (0.9-2) 10/05/22 15:42 TSH 0.889 uIu/ml (0.300-4.500) 10/06/22 06:44 Urine Color Yellow 10/05/22 17:15 Urine Appearance Clear (Clear) 10/05/22 17:15 Urine pH 7.5 (4.5-7.5) 10/05/22 17:15 Ur Specific Bland 1.012 (1.000-1.030) 10/05/22 17:15 Urine Protein Negative (Negative) 10/05/22 17:15 Urine Glucose (UA) Negative (Negative) 10/05/22 17:15 Urine Ketones Negative (Negative) 10/05/22 17:15 Urine Blood Negative (Negative) 10/05/22 17:15 Urine Nitrite Negative (Negative) 10/05/22 17:15 Urine Bilirubin Negative (Negative) 10/05/22 17:15 Urine Urobilinogen Negative (Negative) 10/05/22 17:15 Ur Leukocyte Esterase Negative (Negative) 10/05/22 17:15 POC Ur Test NEG (NEG) 10/05/22 17:15 Urine Opiates Screen Neg (Neg) 10/05/22 17:15 Ur Methadone, Qual Neg (Neg) 10/05/22 17:15 Urine Barbiturates Neg (Neg) 10/05/22 17:15 Ur Phencyclidine (PCP) Neg (Neg) 10/05/22 17:15 U Amphetamin/Meth Scrn Neg (Neg) 10/05/22 17:15 MDMA (Ecstasy) Screen Neg (Neg) 10/05/22 17:15 U Benzodiazepines Scrn Neg (Neg) 10/05/22 17:15 Ur Cocaine Metabolite Neg (Neg) 10/05/22 17:15 U Marijuana (THC) Screen Neg (Neg) 10/05/22 17:15 SARS-CoV-2, RNA, NAAT NEGATIVE (NEGATIVE) 10/05/22 18:00 Impressions Chest X-Ray 10/05/22 16:31 XR chest 1V portable CLINICAL HISTORY: seizure TECHNIQUE: Single frontal radiograph of the chest was obtained. Comparison: None available at the time of this dictation. FINDINGS: No lines and tubes are seen. The cardiomediastinal silhouette is normal. The lungs are clear. No evidence of pleural effusion or pneumothorax. IMPRESSION: No acute chest disease. ACT 112: Negative or not required by law. Electronically signed by: Saji Brooke M.D. 10/05/2022 5:[address] 10/05/22 16:31 CT head/brain wo con CLINICAL HISTORY: seizure Technique: Contiguous axial CT images of the head were acquired from the base of the skull to the vertex without intravenous contrast administration. Images were viewed in brain, subdural and bone windows. Automated dose lowering techniques and/or adjustment according to patient size were utilized for this exam. Comparison: Comparison is made to CTA head and neck 11/11/2021 Findings: The ventricles, basal cisterns, and cerebral sulci are normal. There is no acute intracranial hemorrhage or evidence of acute territorial infarction. Neither mass effect, shift of the midline structures, nor abnormal extra-axial fluid collections are shown. Imaged portions of the paranasal sinuses and mastoid air cells are clear. The orbits appear normal. There are no acute fractures of the calvaria or scalp swelling. Impression: No acute intracranial hemorrhage, no evidence of acute territorial infarction or other acute intracranial disease process. ACT 112: Negative or not required by law. Electronically signed by: Saji Brooke M.D. 10/05/2022 5:25 PM Head CTA 10/06/22 14:14 CT angio head w con CLINICAL HISTORY: 36 years-old Female with w/u for syncope/seizure- basilar irreg in prior CT. Acute seizure-like activity COMPARISON STUDY: Head CT 10/05/2022, CTA head 11/11/2021 TECHNIQUE: Following the IV administration of 112 cc of Optiray, CT angiogram of the brain was performed from the skull base to the vertex. Images are reviewed in the axial, sagittal, and coronal planes. 3-D MIPS images are created and assessed. IV contrast was administered without complication. All measurements were obtained according to NASCET criteria. A dose lowering technique was utilized adhering to the principles of ALARA. CT DOSE: 459.40 mGy.cm FINDINGS: CT ANGIOGRAM OF THE BRAIN: The imaged bilateral internal carotid arteries are patent. The bilateral anterior and middle cerebral arteries are also patent. The basilar artery appears hypoplastic. The posterior cerebral arteries also appear hypoplastic and irregular. The vertebral arteries are codominant. Findings appear stable from prior. There is no aneurysm, new high-grade stenosis, or proximal branch occlusion identified. Dural sinuses appear patent. IMPRESSION: Stable exam from the 11/11/2021 study. Areas of luminal irregularity are again noted within the basilar and posterior cerebral arteries which may represent an underlying vasculitis. ACT 112: Negative or not required by law. The above report was generated using voice recognition software. It may contain grammatical, syntax or spelling errors. Electronically signed by: Monroe Huntley M.D. 10/06/2022 3:37 PM Neck CTA 10/06/22 14:14 CT ANGIOGRAPHY OF THE NECK WITH CONTRAST CLINICAL HISTORY: w/u for syncope/seizure- basilar irreg in prior CT COMPARISON STUDY: CTA of the neck November 11, 2021. Technique: CT angiography of the carotid and vertebral arteries was obtained using Optiray and 3D reconstruction on an independent workstation. NASCET criteria was utilized. Automated exposure control was utilized for the study. A dose lowering technique was utilized adhering to the principles of ALARA. Findings: Visualized portions of the lung apices are unremarkable. There is no cervical lymphadenopathy. There is no cervical spine fracture. The bilateral common carotid and cervical internal carotid arteries are unremarkable. There is no stenosis or dissection within these vessels. The bilateral vertebral arteries are patent. The CTA of the head will be reported separately. Irregularity of the basilar artery is again noted. The distal basilar artery is slightly irregular and somewhat diminutive as are the bilateral posterior cerebral arteries. This is unchanged. Possible fenestration of the distal basilar artery is again noted. IMPRESSION: 1. Unremarkable CTA of the neck. 2. No change in appearance of the basilar artery and posterior cerebral arteries which appear slightly hypoplastic and irregular since CT of November 11, 2021. This remains nonspecific although could be developmental. ACT 112: Negative or not required by law. Electronically signed by: Jorge Alberto Carl M.D. 10/06/2022 3:41 PM Hospital Course (1) Seizure: Patient is 36-year-old female with PMH of hypothyroidism presented to ER with loss of consciousness with seizure like activity (details as in HPI). Patient had loss of bladder and had post ictal state. Does have h/o head injury with concussions a year ago. Work up was unremarkable so far. EEG unremarkable, CT head unremarkable, no significant electrolyte abnormality, no infection. UDS negative. TSH normal. COVID negative. CTA head and neck stable from a year ago. MRI could not be done due to the dental implant. Tele with sinus bradycardia which is her baseline. Seen by neurology- vagal syncope vs seizure, however neuro was more concerned about the basilar configuration and recommended repeat CTA head and neck prior to discharge which showed stable findings compared to 10/2021. Recommended OP follow up with [facility] neuroendovascular center for the same. No seizure medication recommended as first episode. OP MRI if her oral surgeon clears her up for MRI. OP neuro follow up in 4-6 weeks. Patient and were updated of the CTA findings, neuro recommendations and need for OP follow up. CT head- No acute intracranial hemorrhage, no evidence of acute territorial infarction or other acute intracranial disease process. CTA head and neck- 1. Unremarkable CTA of the neck. 2. No change in appearance of the basilar artery and posterior cerebral arteries which appear slightly hypoplastic and irregular since CT of November 11, 2021. This remains nonspecific although could be developmental. (2) Hypokalemia: resolved with repletion (3) Hypothyroidism: Continue levothyroxine (4) Sinus bradycardia: At baseline per patient. She is athletic and runs about 40 miles per week, for past 4 years and her normal HR at baseline is in 40s-50s. Asymptomatic. Total Time Total Time Spent Total Time Spent (In Minutes): 45 Discharge Plan Discharge Items Patient Disposition: Home - Self-Care Reason For Visit: SEIZURES Discharge Diagnosis: Seizure Activity: Per Instructions section Non-emergency contact: Primary Care Provider and Neurologist Call non-emergency contact if: you have any medication questions and your symptoms worsen Follow-up/Referrals: Claudia Morales MD [Primary Care Provider] - (Date & Time 10/11/2022 2:20 PM Provider Claudia Morales MD Department Family Practice [facility] ) Diet: Regular Addtl Attending Provider Instructions: You were seen by neurology. You do not need any seizure medication as this is the first episode. However, we recommend seizure precautions and avoiding activities that puts your life at danger as discussed (see the attached information for details). No swimming alone. No driving at least for 6 months after last seizure episode. We have reported you to [facility] Please follow up with [facility] neuroendovascular clinic for follow up on your irregularity in our blood vessels of head which has been stable for the past year, but definitely needs further workup. Follow up with neurology in 4-6 weeks and Outpatient MRI Follow up with family doctor Pending Studies at Discharge: No Stand-Alone Forms: My [facility], Smoking Cessation Medications and DC Order Prescriptions: Continued levothyroxine 100 mcg tablet 100 mcg PO DAILYBB Discharge Orders: Discharge Order (Routine); Ordered 10/06/22 Ordered By: Kelby Marie/Other Patient Handouts: ED Seizure New [facility] Adult Admission Data Admit Date/Time: 10/05/22 18:22 Attending Provider: Kelby Theodore Admit Provider: Yael Ochoa I. Primary Care Provider: Claudia Morales Other Providers: Yael Ochoa I. ; Danny Singletary Other Interventions: Discharge Summary Assessment (RN) Last Done: 10/06/22 15:55
--- NOTE | 2022-10-06 14:18 | Neurology Consultation ---
Date of Consultation October 06, 2022 Assessment & Plan (1) Seizure: Loss of consciousness episode with seizure-like activity. EEG is unremarkable, though can be normal inter-ictally. She has bradycardia and in the setting of a recent massage of head and neck, this could be vagal syncope. I am more concerned about her basilar configuration as seen on the study performed in 11/13. 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 Would repeat the study as RCVS should have resolved. Otherwise for first time unexplained LOC, she does not need to continue Keppra but unfortunately does need [place] [employer] form completed. -- Discontinue Keppra -- CTA head and neck now, before discharge -- Consider neuroendovascular referral to [facility] pending results - will discuss with Dr. Theodore, if necessary -- Refer to neurology in 4-6 weeks, plan for outpatient MRI -- [place] [employer] form Telehealth Consultation Telehealth Information Telehealth Information: I performed this visit using a real-time telehealth connection between my location and the patients location ([facility]). After connecting through interactive tele-video, patient was identified by name and date of and/or wristband check.Patient (or authorized healthcare players club representative) was informed that this was a telemedicine visit and it was being conducted confidentially over secure lines. My office door was closed and no one else was present in the room with me.Patient (or authorized healthcare players club representative) provided consent to proceed with the visit, expressed an understanding of privacy and security of the telemedicine visit, and gave permission to have a hospital players club representative in the room in order to assist with the visit and to conduct portions of the visit, as needed. I informed the p atient (or authorized healthcare players club representative) that I reviewed their record and presented the opportunity for them to ask any questions regarding the visit today. The patient agreed to participate. History of Present Illness Reason for Consultation: Seizure-like episode Requesting Physician: Dr. Theodore Attending Physician: Kelby Theodore MD History of Present Illness Michael Orellana is a 36 yo F presenting with an episode of loss of consciousness with seizure like activity yesterday. The patient was at a spa and was getting her nails done after having a head and neck/shoulder massage. She was relaxed and while the cost recovery technician was using a vibrating tool on her fingers she had a rising gastric sensation and reportedly lost consciousness. She had shaking for approximately a minute, and though she thinks she woke up, EMS reported that her answers to questions were nonsensical and she had another shaking episode with urinary incontinence. She has otherwise been feeling well, noted increased dizziness/car sickness since delivery of her child. Significant covid associated headache last year with CTA showing basilar irregularity but no follow-up for this finding. Since covid has had headaches a few times a month responsive to ibuprofen. Never formally diagnosed with migraine. Had a sports related concussion with LOC a few months ago, otherwise no other brain trauma, bleeding in the brain, infections. Allergies Allergy/AdvReac Type Severity Reaction Status Date / Time No Known Allergies Allergy Unverified 12/29/15 03:22 Home Medications Medication Instructions Recorded Confirmed Type levothyroxine 100 mcg tablet 100 mcg PO DAILYBB 10/05/22 10/05/22 History Patient History Medical History (Updated 10/06/22 @ 14:11 by Kelby Theodore MD) Hypothyroidism Surgical History History of dental surgery history of dental implant Family History Other Diabetes Dyslipidemia Stroke Social History (Updated 10/05/22 @ 19:32 by Larisa Andrew PA-C) Smoking Status: Never smoker Hx Alcohol Use: No Hx Substance Use: No Preferred Language: Bangladeshi Communication Ability: Effective Lockmaker Required: No Beliefs That Will Affect Care: None marital status: Current Living Situation: Spouse Current Living Situation Comment: home with and 3 kids current occupational status: employed Feels Safe at Home: Yes Assistive Devices: None Review of Systems +seizure-like episode, vertigo Physical Exam Neurological Examination: Mental Status: Awake and alert. Oriented to person, place, and time. Fluent. Comprehension intact. Affect appropriate. Cranial Nerves: II: licona grossly intact. III/IV/: Versions intact without nystagmus, no gaze preference. V: Facial sensation symmetric to light touch VII: Facial expression symmetric VIII: Hearing intact to voice IX/X: Palate elevates symmetrically XI: Shoulder shrug symmetric XII: Tongue midline Motor: Strength was symmetric and antigravity throughout. Pronator drift was absent. There were no abnormal movements. Coordination: Movements were non-ataxic Reflexes: Unable to assess over telemedicine Results & Data Vital Signs (Past 12 Hours) Vital Signs Temp Pulse Resp BP Pulse Ox O2 Del Method 10/06/22 11:22 36.7 C 40 L 17 132/87 97 Room Air 10/06/22 07:41 36.8 C 50 L 18 120/75 95 Room Air 10/06/22 04:35 36.7 C 62 18 126/77 98 Room Air Laboratory Results Abnormal lab results 10/05/22 10/05/22 10/05/22 Range/Units 15:42 15:42 21:29 Lymph # (Auto) 3.43 H (1.2-3.4) K/uL Potassium 3.1 L (3.5-5.1) mmol/L Glucose 101 H 105 H (70-99(Fasting)) mg/dl Total Bilirubin 1.1 H (0.2-1.0) mg/dl Alkaline Phosphatase 29 L (34-104) U/L Diagnostic Findings CT head - Unremarkable, noted calcification in the mid basilar
[2022-10-06] MEDS ORDERED: OPTIRAY 320 500ml IV ONE (15:10)
--- NOTE | 2022-10-06 15:39 | CT Scan Report ---
CT angio head w con CLINICAL HISTORY: 36 years-old Female with w/u for syncope/seizure- basilar irreg in prior CT. Acu te seizure-like activity COMPARISON STUDY: Head CT 10/05/2022, CTA head 11/11/2021 TECHNIQUE: Following the IV administration of 112 cc of Optiray, CT angiogram of the brain was perfor med from the skull base to the vertex. Images are reviewed in the axial, sagittal, and coronal planes . 3-D MIPS images are created and assessed. IV contrast was administered without complication. All me asurements were obtained according to NASCET criteria. A dose lowering technique was utilized adherin g to the principles of ALARA. CT DOSE: 459.40 mGy.cm FINDINGS: CT ANGIOGRAM OF THE BRAIN: The imaged bilateral internal carotid arteries are patent. The bilateral anterior and middle cerebral arteries are also patent. The basilar artery appears hypoplastic. The posterior cerebral arteries al so appear hypoplastic and irregular. The vertebral arteries are codominant. Findings appear stable fr om prior. There is no aneurysm, new high-grade stenosis, or proximal branch occlusion identified. Dural sinuses appear patent. IMPRESSION: Stable exam from the 11/11/2021 study. Areas of luminal irregularity are again noted withi n the basilar and posterior cerebral arteries which may represent an underlying vasculitis. ACT 112: Negative or not required by law. The above report was generated using voice recognition software. It may contain grammatical, syntax o r spelling errors. Electronically signed by: Monroe Huntley M.D. 10/06/2022 3:37 PM
--- NOTE | 2022-10-06 15:43 | CT Scan Report ---
CT ANGIOGRAPHY OF THE NECK WITH CONTRAST CLINICAL HISTORY: w/u for syncope/seizure- basilar irreg in prior CT COMPARISON STUDY: CTA of the neck November 11, 2021. Technique: CT angiography of the carotid and vertebral arteries was obtained using Optiray and 3D rec onstruction on an independent workstation. NASCET criteria was utilized. Automated exposure control was utilized for the study. A dose lowering technique was utilized adhering to the principles of ALA RA. Findings: Visualized portions of the lung apices are unremarkable. There is no cervical lymphadenopat hy. There is no cervical spine fracture. The bilateral common carotid and cervical internal carotid a rteries are unremarkable. There is no stenosis or dissection within these vessels. The bilateral vert ebral arteries are patent. The CTA of the head will be reported separately. Irregularity of the basil ar artery is again noted. The distal basilar artery is slightly irregular and somewhat diminutive as are the bilateral posterior cerebral arteries. This is unchanged. Possible fenestration of the distal basilar artery is again noted. IMPRESSION: 1. Unremarkable CTA of the neck. 2. No change in appearance of the basilar artery and posterior cerebral arteries which appear slightl y hypoplastic and irregular since CT of November 11, 2021. This remains nonspecific although could be dev elopmental. ACT 112: Negative or not required by law. Electronically signed by: Jorge Alberto Carl M.D. 10/06/2022 3:41 PM
--- NOTE | 2022-10-06 15:44 | Communication Note ---
Date of Service: October 06, 2022 Neurology Update: CTA head and neck reviewed. 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 This is unchanged from a year prior but recommend she follow-up with neuroendovascular as an outpatient to consider DSA. No new restrictions or change in medication necessary based on this finding.
--- NOTE | 2022-10-06 17:58 | Electroencephalogram ---
EEG Procedure Note Date of Service October 06, 2022 Start / End Times Start Time: 07:08 End Time: 07:28 Referring Physician Larisa Medina History A 36 year old female with possible Seizure. EEG performed for evaluation of epileptiform activity. Home Medication List Medication Instructions Recorded Confirmed Type levothyroxine 100 mcg tablet 100 mcg PO DAILYBB 10/05/22 10/05/22 History Inpatient Medication List Discontinued Medications Acetaminophen (Acetaminophen 325 Mg Tab) 650 mg PO Q4H PRN PRN Reason: Pain or Fever Stop: 11/04/22 21:20 Last Admin: 10/06/22 05:41 Dose: 650 mg Documented By: TPB Sodium Chloride (Nss 1000ml) 1,000 mls @ 999 mls/hr IV .Q1H1M [facility] Stop: 10/05/22 16:30 Last Infusion: 10/05/22 19:11 Dose: 0 mls/hr Documented By: Admin: 10/05/22 15:45 Dose: 999 mls/hr Documented By: KOSTAS Levetiracetam 2,000 mg/ Sodium (Chloride) 270 mls @ 999 mls/hr IV NOW STA Stop: 10/05/22 15:48 Last Infusion: 10/05/22 16:00 Dose: 0 mls/hr Documented By: Admin: 10/05/22 15:45 Dose: 999 mls/hr Documented By: KOSTAS Ioversol (Optiray 320 500ml) 112 ml IV ONCE ONE Stop: 10/06/22 15:11 Last Admin: 10/06/22 15:02 Dose: 112 ml Documented By: BRAye Levetiracetam (Levetiracetam 500 Mg Tab) 500 mg PO BID [facility] Stop: 11/04/22 21:29 Last Admin: 10/06/22 07:46 Dose: 500 mg Documented By: Admin: 10/05/22 21:52 Dose: 500 mg Documented By: TPB Levothyroxine Sodium (Levothyroxine Sodium 100 Mcg Tablet) 100 mcg PO DAILYBB [facility] Stop: 11/05/22 06:29 Last Admin: 10/06/22 05:42 Dose: 100 mcg Documented By: TPB Potassium Chloride (Potassium Chloride Crtab 20 Meq Tabcr) 40 meq PO NOW STA Stop: 10/05/22 16:32 Last Admin: 10/05/22 17:21 Dose: 40 meq Documented By: KOSTAS Potassium Chloride (Potassium Chloride Crtab 20 Meq Tabcr) 20 meq PO NOW STA Stop: 10/05/22 18:27 Last Admin: 10/05/22 21:52 Dose: 20 meq Documented By: NICOL Description This is a 21 electrode EEG with a single channel dedicated to limited EKG. The electrodes were placed in accordance with the International 10-20 system. Interpretation REPORT: At the onset of the EEG, the patient is awake. The background activity consist of 10-11 Hz, persistent, posteriorly dominant, moderate amplitude, symmetric and rhythmic activity that is reactive to eye opening. Anteriorly, it consist of a mixture of low voltage indeterminate activity and 15-25 Hz, persistent, low amplitude, symmetric and rhythmic activity. Stepwise intermittent photic stimulation does not induce any abnormalities. Drowsiness is characterized by low amplitude mixed frequency activity, roving eye movements, and decreased eye blinking and muscle artifact. Clinical Correlation IMPRESSION: This is a normal awake and drowsy routine EEG. There is no evidence of focal slowing or epileptiform activity.
== END 2022-10-06 16:41 | disposition home or self-care (01) | DRG 101 ==
LOC: ED 15:16 → SUATTDRO 18:22 → 2S 18:22

== ENCOUNTER 2022-12-22 05:27 | Observation (INO) ==
--- NOTE | 2022-12-16 09:05 | Anesthesiology Consultation ---
Date of Service December 16, 2022 Assessment & Plan (1) Encounter for pre-operative examination: Chart Review Chart Review: Acceptable Risk for Surgery and Patient NOT seen in Pre Admission Testing - Check test AM DOS Chronic bradycardia- baseline HR for patient mid 40s bpm. No syncope or dizziness. Patient is very active with exercise -Infectious Disease screening: Per PAT nursing assessment on 12/16/22. No known infectious disease contacts in past 10 days or current infectious disease symptoms. No recent travel outside the country. Patient seen by PCP 11/18/22= Seen for hospital follow-up. Admitted to [facility] September 2002 due to seizure event while at [facility]. No prior seizures. CTA head within normal limits. Seen by neurologynormal work-up and normal brain MRI. Per neurologyepisode of loss of consciousness with seizure-like activity. Has seen neurosurgery for dilation of basilar arteryrepeat MRI in 1 year. Neurology has cleared patient to get license back. Suspect neck massage was an accidental vagal maneuver. Baseline heart rate already low. Patient seen by neurology 10/19/22= Patient admitted to [facility] after LOC with seizure like activity. Patient had just had a shoulder/neck massage prior to incident. Patient presents to neurology for follow-up. Has seen neurovascular and will follow with repeat imaging in 1 year. Patient with history of seizure- like activity. Neurological exam today reveals no focal deficit. Return to neurology as needed. MRI of brain ordered to rule out lesions/stroke. Neuro vascular will follow MRA in one year. Do not drive until seizure free for six months. Forward seizure reporting form when received. 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 Patient had episode 10/04/2022 at the spot of seizure-like episode. 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 Has had not had any other seizure-like activity. Recommend MRI in 1 year. We will follow-up after MRI. History Surgery Operation Date: 12/22/22 07:00 Proposed Procedures p Abdominoplasty - Zoila Atwood MD s Mastopexy Bilateral - Zoila Atwood MD Height/Weight Height: 5 ft 6 in Weight: 78.018 kg Allergies Allergy/AdvReac Type Severity Reaction Status Date / Time No Known Allergies Allergy Verified 12/16/22 08:08 Medications Home Medications Medication Instructions Recorded Confirmed Last Taken levothyroxine 100 mcg tablet 100 mcg PO DAILYBB 10/05/22 12/16/22 Unknown diazepam 2 mg tablet (Valium) 2 mg PO Q6H PRN anxiety #20 tabs 12/08/22 12/16/22 Unknown oxycodone-acetaminophen 5 mg-325 1 tab PO Q4H PRN pain #18 tabs 12/08/22 12/16/22 Unknown mg tablet (Endocet) Past Medical History Medical History COVID-11 October 2021 > resolved Hypothyroidism Seizure September 2022 > neuro felt was a type of vasovagal event, not seizure > was seen at [place] and [facility] ([place] and was cleared for driving again > Souleymane SC'ed Sinus bradycardia patient is active, heart rate is always slower per pt Past Family History Family History Other Diabetes Dyslipidemia Stroke Past Surgical History Surgical History History of dental surgery history of dental implant Social History Smoking Status: Never smoker Do You Dip or Chew Tobacco: No Hx Alcohol Use: Yes Alcohol type: beer alcohol intake frequency: a few times a week Hx Substance Use: No substance use type: does not use Lab Results Anesthesia Preop Results Results Anesthesia Widget: WBC 5.78 K/ul (4.8-10.8) 12/09/22 Hgb 13.7 g/dl (12.0-16.0) 12/09/22 Hct 39.9 % (37.0-47.0) 12/09/22 Plt 278 K/uL (130-400) 12/09/22 Na 139 mmol/L (136-145) 12/09/22 K 3.8 mmol/L (3.5-5.1) 12/09/22 Cl 105 mmol/L (98-107) 12/09/22 CO2 31 mmol/L (21-32) 12/09/22 BUN 19 mg/dl (6-23) 12/09/22 Creat 0.80 mg/dl (0.6-1.2) 12/09/22 Glucose Level 74 mg/dl (70-99(Fasting)) 12/09/22 PT 11.0 Seconds (9.0-12.0) 12/09/22 INR 1.0 (0.9-1.1) 12/09/22 Testing Electrocardiogram Date: 10/05/22 Findings: + SB @ (46bpm ) Chest X-Ray Date: 10/05/22 Findings: + NAD Other Testing MRI 11/08/22= Negative pre and post contrast brain MRI EEG 10/06/22= This is a normal awake and drowsy routine EEG. There is no evidence of focal slowing or epileptiform activity. Neck CTA 10/06/22= Unremarkable CTA of the neck. No change in appearance of the basilar artery and posterior cerebral arteries which appear slightly hypoplastic and irregular since CT of November 11, 2021. This remains nonspecific although could be developmental. Head CTA 10/06/22= Stable exam from the 11/11/2021 study. Areas of luminal irregularity are again noted within the basilar and posterior cerebral arteries which may represent an underlying vasculitis. (Reviwed by neuro: "This is un changed from a year prior but recommend she follow-up with neuroendovascular as an outpatient to consider DSA. No new restrictions or change in medication necessary based on this finding"; seen by neurosurgery- will get repeat head MRA 09/2023) Head CT 10/05/22= No acute intracranial hemorrhage, no evidence of acute territorial infarction or other acute intracranial disease process.
[2022-12-22] MEDS ORDERED: LR 15ML/HR IV SCH (06:00)
[2022-12-22] MEDS ORDERED: ceFAZolin 2000MG 2,000 MG/15 ML SYR IV SCH (06:00)
[2022-12-22] MEDS ORDERED: PROMETHAZINE HCL 12.5 MG in SODIUM CHLORIDE 0.9% 50 ML IV PRN ×2 (06:24→14:30)
[2022-12-22] MEDS ORDERED: NALOXONE HCL 0.4 MG/1 ML VIAL/CARP IV PRN (06:24)
[2022-12-22] MEDS ORDERED: ATROPINE SULFATE 0.1 MG/ML 10ML SYR IV PRN (06:24)
[2022-12-22] MEDS ORDERED: ePHEDrine sulfate 50 MG/ML AMP IV PRN (06:24)
[2022-12-22] MEDS ORDERED: SCOPOLAMINE 1 MG TDSY TD ONE ×2 (06:25→06:26)
[2022-12-22] MEDS ORDERED: LIDOCAINE 2% 2 ML VIAL/AMP(20MG/ML) INFIL ONE (06:42)
[2022-12-22] MEDS ORDERED: PROPOFOL IV EMULSION 10 MG/ML 20 ML VIAL IV ONE (06:42)
[2022-12-22] MEDS ORDERED: ROCURONIUM BROMIDE 10 MG/ML 5 ML VIAL IV ONE ×8 (06:42→09:45)
[2022-12-22] MEDS ORDERED: HYDROmorphone INJ 2 MG/ML SYR/VIAL ONE (06:43)
[2022-12-22] MEDS ORDERED: MIDAZOLAM HCL 1 MG/ML 2ML VIAL ONE (06:43)
[2022-12-22] MEDS ORDERED: fentaNYL citrate PF 100 MCG/2 ML VIAL ONE (06:43)
[2022-12-22] MEDS ORDERED: KETAMINE 50 MG/5 ML SYRINGE ONE (06:43)
[2022-12-22] MEDS ORDERED: FAMOTIDINE/PF 20 MG/2 ML VIAL IV ONE (06:44)
[2022-12-22] MEDS ORDERED: LIDOCAINE 1% LOCAL 20 ML VIAL ONE (06:48)
[2022-12-22] MEDS ORDERED: LIDOCAINE 1%/EPINEPHRINE 1:100,000 20 ML VIAL ONE (06:48)
[2022-12-22] MEDS ORDERED: BUPIVACAINE 0.25% PF 30 ML VIAL ONE (06:48)
[2022-12-22] MEDS ORDERED: EpINEphrine HCL INJ 1 MG/ML 1ML SYRINGE ONE (06:49)
[2022-12-22] MEDS ORDERED: DexMEDEtomidine HCL IV 100 MCG/ML VIAL IV ONE ×2 (06:50→06:55)
[2022-12-22] MEDS ORDERED: ACETAMINOPHEN 1000 MG/100 ML IV IV ONE (06:53)
--- NOTE | 2022-12-22 07:09 | History & Physical Bridge Note ---
Date of Service December 22, 2022 History & Physical Bridge Note I have examined the patient, reviewed the History & Physical and in the interval since the performance of the History & Physical I have noted the following changes of clinical significance: no changes noted
[2022-12-22] MEDS: TRANEXAMIC ACID 1,000 MG **IV Pre-op IV SCH ×2 (07:10→11:53)
[2022-12-22] MEDS ORDERED: ceFAZolin 330 MG/ML 1 GM VIAL ONE (10:08)
[2022-12-22] MEDS ORDERED: ePHEDrine sulfate 50 MG/ML SYR ONE (10:08)
[2022-12-22] MEDS ORDERED: ONDANSETRON INJ 2 MG/ML 2 ML VIAL ONE ×2 (12:19)
--- NOTE | 2022-12-22 12:44 | Post Operative Brief Note ---
PG Immediate Post Op with CF Date of Surgery December 22, 2022 Pre & Post Diagnosis Operation Date: 12/22/22 07:00 Pre-Op Diagnosis: Encounter for Cosmetic Surgery Post-Op Diagnosis: Encounter for Cosmetic Surgery I identified the patient and participated in the time-out.: Yes Procedure Operation Date: 12/22/22 07:00 Actual Procedures p Abdominoplasty with Suction-Assisted Lipectomy(Not Applicable) - Zoila Atwood MD s Bilateral Mastopexy(Not Applicable) - Zoila Atwood MD Surgeon Zoila Atwood MD [employer] Instructor Jannette Garcia PA-C Estimated Blood Loss 15 Findings Consistent with Post-Op Diagnosis Specimens Specimen Description: A) Right Breast Tissue Drains Robert-Ajvier Drain (x2)
[2022-12-22] MEDS: HYDROmorphone INJ 2 MG/ML SYR/VIAL IV PRN ×3 (13:15→13:34)
--- NOTE | 2022-12-22 13:29 | Operative Report ---
PG Post Operative Report Pre & Post Diagnosis Operation Date: 12/22/22 07:00 Pre-Op Diagnosis: Encounter for Cosmetic Surgery Post-Op Diagnosis: Encounter for Cosmetic Surgery I identified the patient and participated in the time-out.: Yes Procedure Operation Date: 12/22/22 07:00 Actual Procedures p Abdominoplasty with Suction-Assisted Lipectomy(Not Applicable) - Zoila Atwood MD s Bilateral Mastopexy(Not Applicable) - Zoila Atwood MD Surgeon Zoila Atwood MD Manager Critical Care Unit Jannette Garcia PA-C Estimated Blood Loss 15 Findings Consistent with Post-Op Diagnosis Specimens right breast tissue Drains shaheen x2 Anesthesia Type General Complications none Indications desiring cosmetic improvement in breasts and abdomen post Description of Procedure The risks, benefits, and alternatives of the procedure were explained to the patient agreed and signed consent. Patient was marked in the preoperative holding area, brought to the operating room, and positioned supine. She was placed under general anesthesia without incident. Surgical site was prepped and draped sterilely. A time out procedure was performed. I planned to perform the mastopexy first. I began with the left breast. 1% lidocaine with epinephrine was used to anesthetize the planned incisions. A 42 millimeter cookie cutter was used to circumscribe the left nipple areolar complex. 15 blade scalpel then made the mastopexy incisions. The skin between the incisions was de- epithelialized using a 15 blade scalpel. I then used electrocautery to make an incision through dermis and underlying subcutaneous fat along the upper medial and lateral portions of the deepithelialized area as well as at the superior margin of the keyhole incision. I raised a mastopexy flap medially, by incising the dermis and raising medial flap with about 1 cm of underlying soft tissue. 2-0 Vicryl suture was then used to reapproximate the T-junction, and wound closure was begun using 2-0 Vicryl interrupted deep dermal sutures to reapproximate the wounds; 3-0 PDS interrupted dermal sutures were placed around the nipple areolar complex. A running 2-0 PDO running superficial dermal Quill suture was used to reapproximate the inframammary fold and additional 3-0 PDS interrupted dermal sutures were placed along the vertical limb and around the nipple.Once inset of the nipple areolar complex was complete and the wound was closed in the dermal layer, 3-0 Monocryl running subcuticular suture was placed around the nipple areolar complex, vertical limb, and inframammary fold. An similar procedure was undertaken on the right side. She did have some preoperative breast asymmetry and we did discuss possible resection of some right breast tissue to improve symmetry. Following partial reapproximation of the right breast it was clear there was a volume discrepancy and therefore some tissue was removed from the breast mound superiorly to the nipple and laterally. This tissue was sent for pathology. Wound closure was begun. 2-0 Vicryl suture was then used to reapproximate the T-junction, and wound closure was begun using 2-0 Vicryl interrupted deep dermal sutures to reapproximate the wounds; 3-0 PDS interrupted dermal sutures were placed around the nipple areolar complex. A running 2-0 PDO running superficial dermal Quill suture was used to reapproximate the inframammary fold and additional 3-0 PDS interrupted dermal sutures were placed along the vertical limb and around the nipple. Dermabond Prineo was applied to the vertical limb and inframammary fold incisions, Dermabond was placed around the nipple areolar complex. Dry dressings and a surgical support bra were placed. Patient was awakened and transferred to the recovery room in satisfactory condition. I then began the abdominoplasty portion of the procedure. I reassessed my markings which included a lower horizontal abdominal incision just below her prior Pfannenstiel incision. Incision was marked bilaterally to the ASIS.I did consider whether to use a short vertical component to the incision but ultimately deemed this not to be necessary. I began by performing suction assisted lipectomy of the central abdomen an flanks. Small stab axis incisions were made, tumescent solution was infiltrated. A total of 400 cc of tumescent consisting of lidocaine, lactated Ringer's, and epinephrine was infiltrated. 100 cc were utilized per each flank, and 200 cc in the periumbilical area. I then pretunneling with a 3 mm liposuction cannula. Suction was then applied and the cannula was passed until there was improvement in contour equal to adjacent tissue with some minimal return of bloody aspirate. I obtained a total of 300 cc of Lipo aspirate. Upon completion of this, I injected 1% lidocaine with epinephrine along the planned incision. The lower abdominal incision was made using a 15-blade scalpel to incise epidermis and superficial dermis followed by electrocautery to incise deep dermis, subcutaneous fat, Kimberlee's fascia down to the abdominal wall. Electrocautery was used to elevate the anterior abdominal skin flap ligating the perforating vessels with electrocautery. Dissection was carried up to the level of the umbilicus in the midline. At this point, a 15- blade scalpel was used to circumscribe the umbilicus. A vertical midline incision was then made from the incision to the umbilicus and divided in the m idline using electrocautery. The umbilicus was then dissected out using electrocautery down to abdominal wall. The umbilical stalk appeared viable throughout the procedure.I continued undermining the abdominal wall skin flap above the umbilicus to the xiphoid process, significantly narrowing the dissection to avoid jeopardizing blood supply.I began repair of the rectus diastasis, which was about 4 cm in greatest diameter and extended nearly the full length of the abdomen, widest above the umbilicus. Plication from the xiphoid to the umbilicus and from the umbilicus to the pubic symphysis was performed using 0 Prolene interrupted [id number] sutures. 0 Prolene running suture was then placed to oversew the [id number] sutures and reinforced the repair. At this point, the bed was flexed and the mid portion of the superior skin flap was inset above the mons pubis using 2-0 Vicryl suture. Skin flaps were marked for excision. A 15-blade scalpel was used to make these incisions and the incision was deepened through dermis, subcutaneous fat, Kimberlee's fat using electrocautery. 15 Khmer Yves drains were placed in the wound bed and brought out through a separate stab incision in the mons pubis. The drains were sutured into place using 3-0 nylon. The umbilicus was brought out through an inverted triangular incision in the abdominal wall. This was performed using a 15-blade scalpel. Wound closure was then begun lateral to medial using 2-0 Vicryl Kimberlee's fascia sutures, 2-0 Vicryl deep dermal sutures, 2-0 PDO running superficial Quill suture, 3-0 Monocryl running subcuticular suture. Umbilicus was brought out through the inverted triangle incision and was sutured into place using 4-0 chromic half buried horizontal mattress sutures. The umbilicus was dressed using Xeroform and the incision was dressed using Dermabond Prineo followed by dry dressings and an abdominal binder. The procedure was tolerated well. The patient was awakened and transferred to [facility] in satisfactory condition. Dry dressings and a surgical bra were placed. The patient was awakened and transferred to recovery in satisfactory condition. Jannette Garcia PA-C was present and scrubbed throughout the entire procedure, assisting with retraction and simultaneous wound closure. I attest to the content of the Intraoperative Record and any orders documented therein. Any exceptions are noted below.
--- NOTE | 2022-12-22 13:53 | Surgery Progress Note ---
Date of Service December 22, 2022 Assessment & Plan (1) Encounter for cosmetic procedure: Plan: Doing well postop. Observe overnight with discharge in am. Subjective Seen in PACU. Pain being managed with Diluadid. Right abdominal ALDA not holding suction. Physical Exam Physical Exam: Minimal serosanguinous drain output Dressings intact and dry Bilateral NACs viable Results & Data Vital Signs (Past 12 Hours) Vital Signs Temp Pulse Pulse Resp BP Pulse Ox O2 Del Method 12/22/22 13:40 53 L 12 151/80 H 98 Room Air 12/22/22 13:20 61 15 147/86 H 100 Room Air 12/22/22 13:10 57 L 18 141/85 H 100 Oxymask 12/22/22 13:30 71 20 135/90 100 Room Air 12/22/22 13:00 49 L 20 128/75 100 Oxymask 12/22/22 12:53 97.3 F L 50 L 15 124/74 99 Oxymask 12/22/22 05:51 98.6 F 62 20 162/97 H 99 Room Air O2 Flow Rate 12/22/22 13:40 12/22/22 13:20 12/22/22 13:10 10 12/22/22 13:30 12/22/22 13:00 10 12/22/22 12:53 10 12/22/22 05:51 PG Care Time/CCT Total # of Minutes Spent Total Time Spent with Patient: Total time spent is greater than 50% in coordination of care (as documented) at patient's floor/unit and/or counseling patient: Coding Level of Care Code 52644 Post Operative Follow-Up Diagnoses Encounter for cosmetic procedure Z41.1
--- NOTE | 2022-12-22 14:08 | Anesthesiology Progress Note ---
Date of Service December 22, 2022 Anesthesia Post Procedure Vital Signs Vital Signs: Temp Pulse Pulse Resp BP Pulse Ox O2 Del Method 12/22/22 14:00 55 L 15 150/82 H 95 Room Air 12/22/22 13:50 36.5 C 54 L 13 153/88 H 95 Room Air 12/22/22 13:40 53 L 12 151/80 H 98 Room Air 12/22/22 13:20 61 15 147/86 H 100 Room Air 12/22/22 13:10 57 L 18 141/85 H 100 Oxymask 12/22/22 13:30 71 20 135/90 100 Room Air 12/22/22 13:00 49 L 20 128/75 100 Oxymask 12/22/22 12:53 36.3 C L 50 L 15 124/74 99 Oxymask 12/22/22 05:51 37 C 62 20 162/97 H 99 Room Air O2 Flow Rate 12/22/22 14:00 12/22/22 13:50 12/22/22 13:40 12/22/22 13:20 12/22/22 13:10 10 12/22/22 13:30 12/22/22 13:00 10 12/22/22 12:53 10 12/22/22 05:51 Pain Intensity Lower Abdomen: Pain Intensity: 5 Transfer of Care Handoff Completed per policy Notes Mental Status: alert / awake / arousable Patient Amnestic to Procedure: Yes Nausea / Vomiting: adequately controlled Pain: adequately controlled Airway Patency, RR, SpO2: stable & adequate BP & HR: stable & adequate Hydration State: stable & adequate Anesthetic Complications: no major complications apparent and Pt Satisfied with anesthetic care
[2022-12-22] MEDS ORDERED: ACETAMINOPHEN 325 MG TAB PO PRN (14:30)
[2022-12-22] MEDS ORDERED: oxyCODONE/ACETAMINOPHEN 5mg/325mg TAB PO PRN (14:30)
[2022-12-22] MEDS ORDERED: MoRPHine SULFATE 2 MG/ML CARP IV PRN (14:30)
[2022-12-22] MEDS ORDERED: LORazepam 0.5 MG TAB PO PRN (14:30)
[2022-12-22] MEDS ORDERED: diphenhydrAMINE 50 MG/ML VIAL IV PRN (14:30)
[2022-12-22] MEDS ORDERED: diphenhydrAMINE Capsule 25 MG CAP PO PRN (14:30)
[2022-12-22] MEDS ORDERED: ONDANSETRON INJ 2 MG/ML 2 ML VIAL IV PRN (14:30)
[2022-12-22] MEDS: D5W AND 1/2NSS 1,000 ML IV SCH (14:42)
[2022-12-22] MEDS: ceFAZolin 2000MG 2,000 MG/15 ML SYR IV SCH ×2 (15:35→23:24)
[2022-12-22] MEDS: CHECK SCOPOLAMINE PATCH PLACEMENT SCH ×2 (15:35→23:24)
[2022-12-22] MEDS: oxyCODONE/ACETAMINOPHEN 5mg/325mg TAB PO PRN (20:00)
[2022-12-22] MEDS: MoRPHine SULFATE 4 MG/ML 1 ML CARP\\VIAL IV PRN (21:56)
--- OUTSIDE RECORDS SUMMARY | 2022-12-23 01:41 | External Medical Summary | Summary of Care ---
Author Name Unknown Organization [facility] Address [address] [place] [address] Phone [phone] Care Team Providers Care Hogshead Hand Name Role Phone Claudia Morales MD Primary Care Provider Encounter Details Date Type Department Care Team Description 10/05/2022 Result Scan Unspecified Department <No scans attached> Allergies Active Allergy Reactions Severity Noted Date Comments Penicillins Diarrhea 02/04/2015 documented as of this encounter (statuses as of 10/12/2022) Medications Medication Sig Dispensed Refills Start Date End Date Status Levothyroxine Sodium 100 MCG Oral Tablet (Levoxyl)Indications:A cquired hypothyroidism Take 1 Tablet (100 mcg) by mouth daily first thing in the morning. (at least 30 min prior to breakfast or other meds) 90 Tablet 3 03/28/2022 Active documented as of this encounter (statuses as of 10/12/2022) Active Problems Problem Noted Date Laryngitis 09/01/2022 Upper respiratory tract infection 2022 Non-recurrent acute serous otitis media of right ear 09/01/2022 COVID-19 03/25/2022 Hypothyroidism 02/04/2015 Overview: Per OB, tsh=2.5 during PPD positive 01/12/2013 Overview: quantiferon test negative on 06/04/2008. See scanned records. Immunization, BCG 01/02/2013 documented as of this encounter (statuses as of 10/12/2022) Immunizations Name Administration Dates Next Due COVID-19 mRNA, LNP-s, No Pre serve, 2-Dose Series (Pfizer) 07/19/2020,06/28/2020 Seasonal Influenza, Quadriva lent, No Preserve, 6 Mons & Above, IM 02/01/2022,01/16/2021,01/28/2020, 0 19,02/26/2018 Seasonal Influenza, Quadriva lent, No Preserve, IM 01/28/2020,01/26/2019,01/16/2015 TDAP (age 10 and older)(Boostrix) 10/21/2015 documented as of this encounter Social History Tobacco Use Types Packs/Day Years Used Date Smoking Tobacco: Never Smokeless Tobacco: Never Alcohol Use Standard Drinks/Week Comments No 0 (1 standard drink = 0.6 oz pur e alcohol) Food Insecurity Answer Date Recorded Within the past 12 months, y ou worried that your food would run out before you got money to buy more. Never true 03/07/2019 Within the past 12 months, t he food you bought just didn't last and you didn't have money to get more. Never true 03/07/2019 Sex Assigned at Date Recorded Not on file Job Start Date Occupation Industry Not on file Not on file Not on file documented as of this encounter Plan of Treatment Upcoming Encounters Date Type Specialty Care Team Description 10/18/2022 Office Visit Neurological Surgery Portillo Maher MD [address] [place] [address] 11/01/2022 Office Visit Family Medicine Claudia Morales MD [address] [place] [id number] 11/24/2022 Office Visit Neurology Patience Dillard PA-C [address] [place] [id number] 03/28/2023 Office Visit Family Medicine Claudia Morales MD [address] [place] [address] Health Maintenance Due Date Last Done Comments Hepatitis B (1 of 3 - 3-dose series) 1985 HIV Screening 10/22/1998 Hepatitis C Screening 10/22/2001 COVID-19 Vaccine (4 - Pfizer series) 04/23/2021 02/26/2021, 07/19/2020, 06/28/2020 Depression Screening, Annual for Pts 12 and Over 09/16/2021 09/16/2020 TSH 03/29/2023 03/29/2022, 03/25, 04/10/2020, Additional history exists Diabetes Screening 03/29/2025 03/29/2022 DTaP,Tdap,and Td Vaccines (2 - Td or Tdap) 10/20/2025 10/21/2015, 10/21/2015 Pap Smear 04/06/2026 04/06/2021, 01/23, 02/19/2014 Influenza Vaccine (FLU shot) Completed 01/2022, 01/16/2021, 01/28/2020, Additional history exists GARDASIL-HPV IMMUNIZATION SERIES Aged Out No longer eligible based on patient's age to complete this topic MENINGOCOCCAL (MENACTRA/MENVEO) Aged Out No longer eligible based on patient's age to complete this topic Pneumococcal Vaccine: Pediatrics (0 to 5 Years) and At-Risk Patients (6 to 64 Years) Aged Out No longer eligible based on patient's age to complete this topic documented as of this encounter Medical Devices Not on filedocumented as of this encounter Procedures Procedure Name Priority Date/Time Associated Diagnosis Comments PROCEDURE SCANNED RESULT 10/05/2022 documented in this encounter Results * PROCEDURE SCANNED RESULT (10/05/2022) 10/05/2022 No Physician Data Unknown SURGERY documented in this encounter Care Teams Hogshead Hand Relationship Specialty Start Date End Date Claudia Morales MD [address] [place] [address] PCP - General Internal Medicine 03/25/22 documented as of this encounter
--- OUTSIDE RECORDS SUMMARY | 2022-12-23 01:41 | External Medical Summary | Summary of Care ---
Author Name Unknown Organization [facility] Address [address] [facility] [address] Phone [phone] Care Team Providers Care [facility] Pricing Consultant Name Role Phone Claudia Morales MD Primary Care Provider Encounter Details Date Type Department Care Team Description 11/03/2022 Result Scan Unspecified Department Dipika Gama, DO [address] [place] [address] <No scans attached> Allergies No known active allergiesdocumented as of this encounter (statuses as of 11/08/2022) Medications Medication Sig Dispensed Refills Start Date End Date Status Levothyroxine Sodium 100 MCG Oral Tablet (Levoxyl)Indications: Acquired hypothyroidism Take 1 Tablet (100 mcg) by mouth daily first thing in the morning. (at least 30 min prior to breakfast or other meds) 90 Tablet 3 03/28/2022 Active Nitrofurantoin Monohyd Macro 100 MG Oral Capsule (Macrobid)Indications :Acute cystitis with hematuria Take 1 Capsule by mouth in the morning and 1 Capsule before bedtime. Do all this for 5 days. With food until gone. 10 Capsule 0 11/03/2022 11/08/2022 Active documented as of this encounter (statuses as of 11/08/2022) Active Problems Problem Noted Date Laryngitis 09/01/2022 Upper respiratory tract infection 2022 Non-recurrent acute serous otitis media of right ear 09/01/2022 COVID-19 03/25/2022 Hypothyroidism 02/04/2015 Overview: Per OB, tsh=2.5 during PPD positive 01/12/2013 Overview: quantiferon test negative on 06/04/2008. See scanned records. Immunization, BCG 01/02/2013 documented as of this encounter (statuses as of 11/08/2022) Immunizations Name Administration Dates Next Due COVID-19 [...] file Not on file Not on file Travel History Travel Start Travel End [facility] 10/10/2022 10/16/2022 documented as of this encounter Plan of Treatment Upcoming Encounters Date Type Specialty Care Team Description 12/16/2022 Office Visit Family Medicine Claudia Morales MD [address] [place] [id number] 03/28/2023 Office Visit Family Medicine Claudia Morales MD [address] [place] [address] 10/10/2023 Imaging Radiology 10/20/2023 Telemedicine Neurological Surgery Portillo Maher MD [address] [facility] [place] [address] Health Maintenance Due Date Last Done Comments Hepatitis B (1 of 3 - 3-dose series) 1985 HIV Screening 10/22/1998 Hepatitis C Screening 10/22/2001 COVID-19 Vaccine (4 - Pfizer series) 04/23/2021 02/26/2021, 07/19/2020, 06/28/2020 Depression Screening, Annual for Pts 12 and Over 09/16/2021 09/16/2020 Influenza Vaccine (FLU shot) (#1) 2022 02/01/2022, 01/16/2021, 01/28/2020, Additional history exists TSH 03/29/2023 03/29/2022, 03/25, 04/10/2020, Additional history exists Diabetes Screening 03/29/2025 03/29/2022 DTaP,Tdap,and Td Vaccines (2 - Td or Tdap) 10/20/2025 10/21/2015, 10/21/2015 Pap Smear 04/06/2026 04/06/2021, 01/23, 02/19/2014 GARDASIL-HPV IMMUNIZATION SERIES Aged Out No longer [...] Procedure Name Priority Date/Time Associated Diagnosis Comments OUTSIDE LAB RESULTS 11/03/2022 documented in this encounter Results * OUTSIDE LAB RESULTS (11/03/2022) 11/03/2022 Dipika Gama DO LABORATORY documented in this encounter Care Teams [facility] Pricing Consultant Relationship Specialty Start Date End Date Claudia Morales MD [address] [facility] [place] [address] PCP - General Internal Medicine 03/25/22 documented as of this encounter
--- OUTSIDE RECORDS SUMMARY | 2022-12-23 01:41 | External Medical Summary | Summary of Care ---
Author Name Unknown Organization [facility] Address [address] [place] [address] Phone [phone] Care Team Providers Care Stringed Instrument Assembler Name Role Phone Claudia Morales MD Primary Care Provider Reason for Referral * Precert (Within 10 days (routine)) - Pending Review Specialty Diagnoses / Procedures Referred By Emani selby Referred To Contact Radiology Diagnoses Unruptured cerebral aneurysm Procedures MRA HEAD WO CONTRAST Anuja Sampson PA-C [address] [place] [address] Referral ID Status Reason Start Date Expiration Date V isits Requested Visits Authorized [id number] Pending Review 10/10/[phone] Reason for Visit * Reason Comments NEW PATIENT * Evaluate & Treat - Unlimited Visits (Within 10 days (routine)) - Pending Review Specialty Diagnoses / Procedures Referred By Emani selby Referred To Contact Neurological Surgery Diagnoses Basilar artery aneurysm (HCC) Claudia Morales MD [address] [place] [address] Referral ID Status Reason Start Date Expiration Date Visits Requested Visits Authorized [id number] Pending Review Specialty Services Required 10/10/[phone] Encounter Details Date Type Department Care Team Description 10/18/2022 Office Visit [facility] [address] [place] [address] Portillo Maher MD [address] [place] [address] Unruptured cerebral aneurysm* Allergies No known active allergiesdocumented as of this encounter (statuses as of 10/21/2022) Medications Medication Sig Dispensed Refills Start Date End Date Status Levothyroxine Sodium 100 MCG Oral Tablet (Levoxyl)Indications:A cquired hypothyroidism Take 1 Tablet (100 mcg) by mouth daily first thing in the morning. (at least 30 min prior to breakfast or other meds) 90 Tablet 3 03/28/2022 Active documented as of this encounter (statuses as of 10/21/2022) Active Problems Problem Noted Date Laryngitis 09/01/2022 Upper respiratory tract infection 2022 Non-recurrent acute serous otitis media of right ear 09/01/2022 COVID-19 03/25/2022 Hypothyroidism 02/04/2015 Overview: Per OB, tsh=2.5 during PPD positive 01/12/2013 Overview: quantiferon test negative on 06/04/2008. See scanned records. Immunization, BCG 01/02/2013 documented as of this encounter (statuses as of 10/21/2022) Immunizations Name Administration Dates Next Due COVID-19 [...] file Travel History Travel Start Travel End [facility] 10/10/2022 10/16/2022 documented as of this encounter Last Filed Vital Signs Vital Sign Reading Time Taken Comments Blood Pressure 130/80 10/18/2022 9:58 AM EDT Pulse 56 10/18/2022 9:58 AM EDT Temperature 36.4 C (97.5 F) 10/18/2022 9:58 AM ED T Respiratory Rate - - Oxygen Saturation - - Inhaled Oxygen Concentration - - Weight 79.6 kg (175 lb 8 oz) 10/18/2022 9:58 AM EDT Height - - Body Mass Index 28.33 04/06/2021 1:17 PM EST documented in this encounter Progress Notes * Anuja Sampson PA-C - 10/18/2022 10:00 AM EDT CONSULT NOTE - Cerebrovascular Surgery [facility] [address] Name: Michael Orellana Date of service: 10/18/2022 Time: 7:57 AM Primary Care Provider: Claudia Morales MD Referring Provider: Claudia Morales MD OUTPATIENT CONSULTATION Chief complaint: Basilar artery dilation History of Present Illness: Michael Orellana is a 36 year old that presents to the clinic for evaluation basilar artery dilation in the setting new onset seizures. On 10/04/2022 Michael had a seizure-like episode where she consciousness as well control of her. She was at the [facility] and had just finished a head and neck massage and was getting a manicure when she felt a rising sensation and then lost consciousness. It was reported that she had convulsions for approximately 1 minute. Though she had believed to wake up EMS reported that she had another episode of shaking with urinary incontinence and her speech was garbled. During workup she was found to have a dilation of her basilar artery i ncidentally. She feels well at this time and has had no other seizure-like activity. PAST MEDICAL HISTORY: No past medical history on file. 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 Tobacco Use Smoking status: Never Smokeless tobacco: Never Vaping Use Vaping Use: Never used Substance and Sexual Activity Alcohol use: No Drug use: No Sexual activity: Not on file Other Topics Concern Not on file Social History Narrative Not on file Social Determinants of Health Financial Resource Strain: Not on file Food Insecurity: Not on file Transportation Needs: Not on file Physical Activity: Not on file Stress: Not on file Social Connections: Not on file Intimate Partner Violence: Not on file Housing Stability: Not on file Tobacco Use: Denies EtOH use: Denies Recreational/Illicit Drug Use: Denies FAMILY HISTORY: Family History Problem Relation Age of Onset Diabetes Mother Hyperlipidemia Mother Diabetes Father Hyperlipidemia Father No Known Problems Brother weighs at least 450lbs Stroke Grandmother (Maternal) Stroke Grandfather (Maternal) Heart Disorder Grandmother (Paternal) Stroke Grandmother (Paternal) Stroke Grandfather (Paternal) No Known Problems Daughter No Known Problems Son No Known Problems Son Breast Cancer No significant family history Ovarian cancer No significant family history Colon cancer No significant family history MEDICATIONS: Current Outpatient Medications Medication Sig Dispense Refill Levothyroxine Sodium 100 MCG Oral Tablet (Levoxyl) Take 1 Tablet (100 mcg) by mouth daily firstthing in the morning. (at least 30 min prior to breakfast or other meds) 90 Tablet 3 No current facility-administered medications for this visit. Antiplatelet/Anti-coagulation regimen: Denies ALLERGIES: Review of patient's allergies indicates: No Known Allergies Allergy to MELVINA: No Patient Active Problem List Diagnosis Code Immunization, BCG Z23 PPD positive R76.11 Hypothyroidism E03.9 COVID-19 U07.1 Laryngitis J04.0 Upper respiratory tract infection J06.9 Non-recurrent acute serous otitis media of right ear H65.01 REVIEW OF SYSTEMS: All ROS was reviewed and are only positive for the above noted pertinent complaints PHYSICAL EXAMINATION: Visit vital signs: BP 130/80 | Pulse 56 | Temp 36.4 C (97.5 F) (Tympanic) | Wt 79.6 kg (175 lb 8 oz) | BMI 28.33 kg/m | BSA 1.93 m Patient found sitting comfortably in chair in the room upon arrival Alert Awake and Oriented x3 Following commands appropriately Pleasant and cooperative Cranial Nerves II-XII Intact 5/5 strength in all 4 extremities Sensation intact in all 4 extremities No Pronator Drift No Gait or Balance Disturbances IMAGES: CTA of the head Distal dilation of the basilar artery VISIT DIAGNOSIS/PRE-OP ORDERS: Unruptured cerebral aneurysm (Primary) - MRA HEAD WO CONTRAST; Future; Expected date: 10/10/2023 Follow Up: Return in about 1 year (around 10/19/2023) for Clinic Visit. 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 On 10/04/2022 Michael had a seizure-like episode where she consciousness as well control of her. She was at the [facility] and had just finished a head and neck massage and was getting a manicure when she felt a rising sensation and then lost consciousness. It was reported that she had convulsions for approximately 1 minute. Though she had believed to wake up EMS reported that she had another episode of shaking with urinary incontinence and her speech was garbled. During workup she was found to have a dilation of her basilar artery incidentally. She feels wellat this time and has had no other seizure-like activity. PLAN: All questions and concerns addressed Imaging reviewed MRA to be completed in 1 year Return to clinic after completion of MRA Encouraged to call with any questions or concerns Anuja Sampson PA-C [facility] [address] [place] [address] 10/19/2022 7:35 AM I have reviewed the advanced practitioner documentation and agree. I saw and evaluated the patient on date of service referenced in note and have performed the following medically appropriate historyand/or exam: 36-year-old female with new onset seizure like episode. She obtained brain imaging imaging while in the emergency department which demonstrated a fusiform basilar dilatation. We discussed that treatment for these lesions usually consists of medical management due to the significant risks involved with any intervention in this location. We will see her in 1 year for an MR angiogram. documented in this encounter Plan of Treatment Upcoming Encounters Date Type Specialty Care Team Description 11/01/2022 Office Visit Family Medicine Claudia Morales MD [address] [place] [id number] 11/06/2022 Imaging Radiology 03/28/2023 Office Visit Family Claudia Alaniz MD [address] [place] [address] 10/10/2023 Imaging Radiology 10/20/2023 Telemedicine Neurological Surgery Portillo Maher MD [address] [place] [address] Scheduled Orders Name Type Priority Associated Diagnoses Orde r Schedule MRA HEAD WO CONTRAST Medical Imaging Routine Unruptured cerebral aneurysm Expected: 10/10/2023, Expires: 11/18/2023 Health Maintenance Due Date Last Done Comments [...] Not on filedocumented as of this encounter Visit Diagnoses Diagnosis Unruptured cerebral aneurysm- Primary Cerebral aneurysm, nonruptured documented in this encounter Care Teams Stringed Instrument Assembler Relationship Specialty Start Date End Date Claudia Morales MD [address] [place] [address] PCP - General Internal Medicine 03/25/22 documented as of this encounter"
--- OUTSIDE RECORDS SUMMARY | 2022-12-23 01:41 | External Medical Summary | Summary of Care ---
Author Name Unknown Organization [facility] Address [address] [facility] [place] [address] Phone [phone] Care Team Providers Care Staff Accountant Name Role Phone Claudia Morales MD Primary Care Provider Reason for Visit * Reason Comments Hospital Follow-Up [facility] 10/05/22 [place]. No prior hx seizures. CTA head wnl. Seen by neurology, normal work up and normal MRI brain. Encounter Details Date Type Department Care Team Description 11/18/2022 Office Visit Family Practice [facility] [address] [facility] [place] [address] Claudia Morales MD [address] [facility] [place] [address] Loss of consciousness (HCC)* Allergies No known active allergiesdocumented as of this encounter (statuses as of 11/18/2022) Medications Medication Sig Dispensed Refills Start Date End Date Status Levothyroxine Sodium 100 MCG Oral Tablet (Levoxyl)Indications:A cquired hypothyroidism Take 1 Tablet (100 mcg) by mouth daily first thing in the morning. (at least 30 min prior to breakfast or other meds) 90 Tablet 3 03/28/2022 Active documented as of this encounter (statuses as of 11/18/2022) Active Problems Problem Noted Date Laryngitis 09/01/2022 Upper respiratory tract infection 2022 Non-recurrent acute serous otitis media of right ear 09/01/2022 COVID-19 03/25/2022 Hypothyroidism 02/04/2015 Overview: Per OB, tsh=2.5 during PPD positive 01/12/2013 Overview: quantiferon test negative on 06/04/2008. See scanned records. Immunization, BCG 01/02/2013 documented as of this encounter (statuses as of 11/18/2022) Immunizations Name Administration Dates Next Due COVID-19 [...] on file documented as of this encounter Last Filed Vital Signs Vital Sign Reading Time Taken Comments Blood Pressure 134/84 11/18/2022 10:54 AM EDT Pulse 52 11/18/2022 10:54 AM EDT Temperature 37.3 C (99.1 F) 11/18/2022 10:54 AM E DT Respiratory Rate - - Oxygen Saturation 97% 11/18/2022 10:54 AM EDT Inhaled Oxygen Concentration - - Weight 79.8 kg (176 lb) 11/18/2022 10:54 AM EDT Height - - Body Mass Index 28.41 04/06/2021 1:17 PM EST documented in this encounter Progress Notes * Claudia Morales MD - 11/18/2022 11:01 AM EDT Images from the original note were not included. History of Present Illness Michael Orellana is a 37 year old female that presents for Hospital Follow-Up ([facility] 10/05/22 seizure event while at [facility]. No prior hx seizures. CTA head wnl. Seen by neurology, normal work up and normal MRI brain. ) Saw Neurology in September after hospital discharge. Episode of loss of consciousness with seizure-like activity. Saw Neurosurgery for dilation basilar artery. Repeat MRI in 1 year. Had just completed head and neck massage including extensive anterior neck work. Was getting pedicure when she felt funny and passed out. Resting heart rate typically in the 40s. Does not drop into the 30s while sleeping according to her fitbit. Runs 40 miles a week. Has been able to restart running without any exertional cardiopulmonary symptoms. Has not had any lightheadedness or dizziness or premonition recurrence. Neurology cleared her to get her license back. medication and allergy list reviewed Past medical history and problem list reviewed Physical Exam Vitals: 11/18/22 1054 Temp: 37.3 C (99.1 F) Pulse: 52 SpO2: 97% BP: 134/84 Wt Readings from Last 3 Encounters: 11/18/22 79.8 kg (176 lb) 10/19/22 80.4 kg (177 lb 4.8 oz) 10/18/22 79.6 kg (175 lb 8 oz) Pulse Readings from Last 3 Encounters: 11/18/22 52 10/19/22 67 10/18/22 56 BP Readings from Last 3 Encounters: 11/18/22 134/84 10/19/22 126/76 10/18/22 130/80 Physical Exam Vitals and nursing note reviewed. Constitutional: Appearance: Normal appearance. She is not ill-appearing. Cardiovascular: Rate and Rhythm: Regular rhythm. Bradycardia present. Heart sounds: No murmur heard. Comments: HR 50s Pulmonary: Effort: Pulmonary effort is normal. Breath sounds: Normal breath sounds. Musculoskeletal: Right lower leg: No edema. Left lower leg: No edema. Skin: Coloration: Skin is not jaundiced or pale. Neurological: Mental Status: She is alert. I have reviewed the following results: Lipid Panel and TSH CBC, CMP Assessment and Plan Loss of consciousness (HCC) Suspect neck massage was an accidental vagal maneuver. Baseline heart rate already so low. Neurology has cleared her to return to driving. No symptoms or exam evidence of structural cardiac disease. Reassurance provided. Wrap-Up Time: I spent a total of 20-29 minutes (exact time 21 mins) on the date of service in preparation, delivery, and documentation of the care provided to Michael Orellana excluding any time spent in the performance of separately billed services. documented in this encounter Plan of Treatment Upcoming Encounters Date Type Specialty Care Team Description 03/28/2023 Office Visit Family Medicine Claudia Morales MD [address] [facility] [address] 10/10/2023 Imaging Radiology 10/20/2023 Telemedicine Neurological Surgery Portillo Maher MD [address] [place] [address] Health Maintenance Due Date Last Done Comments Hepatitis B (1 of 3 - 3-dose series) 1983 HIV Screening 10/22/1998 Hepatitis C Screening 10/22/2001 HPV/Co-Test 10/22/2013 COVID-19 Vaccine (4 - Pfizer series) 04/23/2021 02/26/2021, 07/19/2020, 06/28/2020 Depression Screening, Annual for Pts 12 and Over 09/16/2021 09/16/2020 Influenza Vaccine (FLU shot) (#1) 2022 02/01/2022, 01/16/2021, 01/28/2020, Additional history exists TSH 03/29/2023 03/29/2022, 03/25, 04/10/2020, Additional history exists Cervical Cancer Screening 04/06/2024 Pap Smear 04/06/2024 04/06/2021, 01/23, 02/19/2014 Diabetes Screening 03/29/2025 03/29/2022 DTaP,Tdap,and Td Vaccines (2 - Td or Tdap) 10/20/2025 10/21/2015, 10/21/2015 GARDASIL-HPV IMMUNIZATION SERIES Aged Out No longer [...] as of this encounter Visit Diagnoses Diagnosis Loss of consciousness (HCC)- Primary Other alteration of consciousness documented in this encounter Care Teams Staff Accountant Relationship Specialty Start Date End Date Claudia Morales MD [address] [place] [address] PCP - General Internal Medicine 03/25/22 documented as of this encounter
--- OUTSIDE RECORDS SUMMARY | 2022-12-23 01:41 | External Medical Summary | Summary of Care ---
Author Name Unknown Organization [facility] Address [address] [place] [address] Phone [phone] Care Team Providers Care Embedded Systems Designer Name Role Phone Claudia Morales MD Primary Care Provider Reason for Visit * Reason Onset Date Comments NEW PATIENT 10/08/2022 Encounter Details Date Type Department Care Team Description 10/08/2022 Telephone Vascular Surgery, [facility] [address] [place] [address] Services, Scheduling [address] [place] [address] NEW PATIENT Allergies Active Allergy Reactions Severity Noted Date Comments Penicillins Diarrhea 02/04/2015 documented as of this encounter (statuses as of 10/11/2022) Medications Medication Sig Dispensed Refills Start Date End Date Status Levothyroxine Sodium 100 MCG Oral Tablet (Levoxyl)Indications:A cquired hypothyroidism Take 1 Tablet (100 mcg) by mouth daily first thing in the morning. 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 See scanned records. Immunization, BCG 01/02/2013 documented as of this encounter (statuses as of 10/11/2022) Immunizations Name Administration Dates Next Due COVID-19 [...] on file documented as of this encounter Miscellaneous Notes * Telephone Encounter - NEELA Pedersen - 10/11/2022 10:08 AM EDT appt has been cancelled * Telephone Encounter - Claudia Morales MD - 10/10/2022 1:43 PM EDT Noted - appreciate the assistance. * Telephone Encounter - Shana Hamilton PA-C - 10/09/2022 9:32 AM EDT New patient No triage Referred for syncope/convulsive seizures Referral notes state: "Neurology recommended neuroendovascular referral for "areas of luminal irregularity noted within the basilar and posterior cerebral arteries which may represent and underlying vasculitis." Per review of scanned documents: - Was in the ER at [facility] for 2 witnessed seizures on 10/05/22 and discharged home on 10/06/22 - CT was obtained noting no acute infarct and no acute hemorrhage - I reviewed CT images myself and do NOT see any significant bilateral carotid, vertebral, subclavian disease from a vascular standpoint - Dr. Singletary felt pt had a convulsive seizure - Plan was to get MRI; however, had metal in jaw Per further epic notes/encounters: [facility] recommended pt to see "neuroendovascular" department. He was seen by Dr. Singletary (Neuro) via video consult while in the ER. PCP sent staff message to Dr. Singletary to clarify on what department to send pt to Currently scheduled with us (Dr. Johnson) on 10/20/22 and Neurology 11/24/22 He does NOT need to see Vascular Surgery since we do NOT manage the intracranial vessels; this would be Neurosurgery / Neurology Scheduling/Allen/[place]laire - CANCEL 10/20/[address] Johnson Not necessary Dr. Morales - It looks like patient had seizures. I looked at CT images and do not see any significant carotid, vertebral, subclavian disease. Per your note, it looks like all the disease is in the intracranial vessels, which would be Neurosurgery / Neurology who would manage this. If there is concern for vasculitis, that would be Rheumatology. However, I would have pt see Neurosurgery first and then they can decide what they want to do with this. Thanks! * Telephone Encounter - NEELA Chapman - 10/08/2022 5:56 PM EDT Syncope, unspecified syncope type [R55] Abnormal imaging of central nervous system [R90.89] New referral from PCP. Scheduled 10/20 GW with NEELA De La Garza documented in this encounter Plan of Treatment Upcoming Encounters Date Type Specialty Care Team Description 11/01/2022 Office Visit Family Claudia Alaniz MD [address] [place] [address] 11/24/2022 Office Visit Neurology Patience Dillard PA-C [address] [place] [address] 03/28/2023 Office Visit Family Claudia Alaniz MD [address] [place] [address] Health Maintenance Due Date Last Done Comments [...] Not on filedocumented as of this encounter Care Teams Embedded Systems Designer Relationship Specialty Start Date End Date Claudia Morales MD [address] [place] [address] PCP - General Internal Medicine 03/25/22 documented as of this encounter
--- OUTSIDE RECORDS SUMMARY | 2022-12-23 01:41 | External Medical Summary | Summary of Care ---
Author Name Unknown Organization [facility] Address [address] [facility] [address] Phone [phone] Care Team Providers Care Shear Setter Name Role Phone Claudia Morales MD Primary Care Provider Reason for Referral * Precert (Within 10 days (routine)) - Pending Review Specialty Diagnoses / Procedures Referred By Contac t Referred To Contact Radiology Diagnoses Seizure-like activity (HCC) Procedures MRI BRAIN W WO CONTRAST Patience Dillard PA-C [address] [facility] [place] [address] Referral ID Status Reason Start Date Expiration Date V isits Requested Visits Authorized [id number] Pending Review 10/26/2022 999 999 Reason for Visit * Reason Comments Hospital Follow-Up Seizure First seizure episod e. No further episodes Encounter Details Date Type Department Care Team Description 10/19/2022 Office Visit Neurology State Malcolm Mueller [address] [place] [address] Patience Dillard PA-C [address] [facility] [place] [address] Seizure-like activity (HCC)* Allergies No known active allergiesdocumented as of this encounter (statuses as of 10/19/2022) Medications Medication Sig Dispensed Refills Start Date End Date Status Levothyroxine Sodium 100 MCG Oral Tablet (Levoxyl)Indications:A cquired hypothyroidism Take 1 Tablet (100 mcg) by mouth daily first thing in the morning. 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 See scanned records. Immunization, BCG 01/02/2013 documented as of this encounter (statuses as of 10/19/2022) Immunizations Name Administration Dates Next Due COVID-19 [...] file Travel History Travel Start Travel End [facility] 10/10/2022 10/16/2022 documented as of this encounter Last Filed Vital Signs Vital Sign Reading Time Taken Comments Blood Pressure 126/76 10/19/2022 11:11 AM EDT Pulse 67 10/19/2022 11:11 AM EDT Temperature 36.7 C (98 F) 10/19/2022 11:11 AM EDT Respiratory Rate 16 10/19/2022 11:11 AM EDT Oxygen Saturation - - Inhaled Oxygen Concentration - - Weight 80.4 kg (177 lb 4.8 oz) 10/19/2022 11:11 AM EDT Height - - Body Mass Index 28.62 04/06/2021 1:17 PM EST documented in this encounter Nursing Notes * LORELEI Chavez - 10/19/2022 11:10 AM EDT Chief Complaint Patient presents with Hospital Follow-Up Seizure First seizure episode. No further episodes documented in this encounter Plan of Treatment Upcoming Encounters Date Type Specialty Care Team Description 11/01/2022 Office Visit Family Medicine Claudia Morales MD [address] [place] [address] 11/06/2022 Imaging Radiology 03/28/2023 Office Visit Family Medicine Claudia Morales MD [address] [place] [address] 10/10/2023 Imaging Radiology 10/20/2023 Telemedicine Neurological Surgery Portillo Maher MD [address] [place] [address] Scheduled Orders Name Type Priority Associated Diagnoses Orde r Schedule MRI BRAIN W WO CONTRAST Medical Imaging Routine Seizure-like activity (HCC) Expected: 10/26/2022, Expires: 11/19/2023 Health Maintenance Due Date Last Done Comments [...] as of this encounter Visit Diagnoses Diagnosis Seizure-like activity (HCC)- Primary Other convulsions documented in this encounter Care Teams Shear Setter Relationship Specialty Start Date End Date Claudia Morales MD [address] [place] [address] PCP - General Internal Medicine 03/25/22 documented as of this encounter
--- OUTSIDE RECORDS SUMMARY | 2022-12-23 01:41 | External Medical Summary | Summary of Care ---
Author Name Unknown Organization [facility] Address [address] [place] [address] Phone [phone] Care Team Providers Care Weld Inspector Name Role Phone Claudia Morales MD Primary Care Provider Reason for Visit * Reason Onset Date Comments NEW PATIENT 10/08/2022 Encounter Details Date Type Department Care Team Description 10/08/2022 Telephone Vascular Surgery, [facility] [address] [place] [address] Services, Scheduling [address] [place] [address] NEW PATIENT Allergies Active Allergy Reactions Severity Noted Date Comments Penicillins Diarrhea 02/04/2015 documented as of this encounter (statuses as of 10/10/2022) Medications Medication Sig Dispensed Refills Start Date End Date Status Levothyroxine Sodium 100 MCG Oral Tablet (Levoxyl)Indications:A cquired hypothyroidism Take 1 Tablet (100 mcg) by mouth daily first thing in the morning. 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 See scanned records. Immunization, BCG 01/02/2013 documented as of this encounter (statuses as of 10/10/2022) Immunizations Name Administration Dates Next Due COVID-19 [...] encounter Miscellaneous Notes * Telephone Encounter - Claudia Morales MD [...] documents: - Was in the ER at [facility] for 2 witnessed seizures on 10/05/22 and [...] metal in jaw Per further epic notes/encounters: [facility] recommended pt to see "neuroendovascular" department. He [...] Encounters Date Type Specialty Care Team Description 10/20/2022 Office Visit Vascular Surgery Dexter Johnson MD [address] [facility] [place] [address] 11/01/2022 Office Visit Family Medicine Claudia Morales MD [address] [place] [address] 11/24/2022 Office Visit Neurology Patience Dillard PA-C [address] [facility], [place] [address] 03/28/2023 Office Visit Family Medicine Claudia Morales MD [address] [place] [address] Health Maintenance Due Date Last Done Comments [...] filedocumented as of this encounter Care Teams Weld Inspector Relationship Specialty Start Date End Date Claudia Morales MD [address] [place] [address] PCP - General Internal Medicine 03/25/22 documented as of this encounter
--- OUTSIDE RECORDS SUMMARY | 2022-12-23 01:41 | External Medical Summary | Summary of Care ---
Author Name Unknown Organization [facility] Address [address] [place] [address] Phone [phone] Care Team Providers Care Security Public Safety Officer Name Role Phone Claudia Morales MD Primary Care Provider Reason for Visit * Reason Onset Date Comments Appointment 10/08/2022 TRIAGE 10/08/2022 Encounter Details Date Type Department Care Team Description 10/08/2022 Telephone [facility] [address] [place] [address] Specified, Mo No Resource [address] [place] [address] Appointment; TRIAGE Allergies Active Allergy Reactions Severity Noted Date [...] encounter Miscellaneous Notes * Telephone Encounter - Renee Persaud RN - 10/11/2022 1:56 PM EDT Placed call out to patient [phone], no answer. "basilar fusiform aneurysm. " Provided VM regarding referral from Dr. Singletary, scheduled 10/18 @ 10am, provided clinic callback number if date/time does not work for her, and provided directions to clinic. * Telephone Encounter - NEELA Winston - 10/09/2022 8:05 AM EDT Pt called in to schedule unsure which provider to schedule with Pt prefers a video appt due to the face that her license was taken and [place]. Pt states Dr Singletary saw her and gave her 2 names shes unsure which names he gave her and she coudlnt find it in her notes from her hospital stay. Pt states either a phone call or myg response would be ok [phone] Please advise Thank you * Telephone Encounter - NEELA Markham - 10/08/2022 12:10 PM EDT Patient verified identity by spelling of last name and date. Patient was recently admitted to [facility] for syncopal episode. Per patient Dr. Singletary thought it was a convulsive seizure that was due to some plaque he saw on a CT. Patient was to follow up with Neuro. Per patient [facility] wanted to do an MRI but they found retained metal in her jaw. The metal has been confirmed to be surgical grade steel from a wisdom tooth extraction. Patient was scheduled w/ Patience Dillard in [facility] but Dr. Singletary specified she should see someone in [place]. Does she need scheduled w/ cerebrovascular? I'm working on getting notes from hospital stay. documented in this encounter Plan of Treatment Upcoming Encounters Date Type Specialty Care Team Description 10/18/2022 Office Visit Neurological Surgery Portillo Maher MD [address] [place] [address] 11/01/2022 Office Visit Family Medicine Cluadia Morales MD [address] [place] [address] 11/24/2022 Office Visit Neurology Patience Dillard PA-C [address] [facility] [place] [address] 03/28/2023 Office Visit Family Medicine Claduia Morales MD [address] [place] [address] Health Maintenance Due Date Last Done Comments [...] filedocumented as of this encounter Care Teams Security Public Safety Officer Relationship Specialty Start Date End Date Claudia Morales MD [address] [place] [address] PCP - General Internal Medicine 03/25/22 documented as of this encounter
--- OUTSIDE RECORDS SUMMARY | 2022-12-23 01:42 | External Medical Summary | Summary of Care ---
Author Name Unknown Organization [facility] Address [address] [place] [address] Phone [phone] Care Team Providers Care Planning Technician Name Role Phone Claudia Morales MD Primary Care Provider Reason for Visit * Reason Comments Laryngitis X 2 days, laryngitis and right ear pain. 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 Encounter Details Date Type Department Care Team Description 09/01/2022 Office Visit Family Practice [facility] [address] [facility] [address] Fanny Salmeron CRNP [address] [facility] [place] [address] Upper respiratory tract infection, unspecified type*; Laryngitis; Non-recurrent acute serous otitis media of right ear Allergies Active Allergy Reactions Severity Noted Date Comments Penicillins Diarrhea 02/04/2015 documented as of this encounter (statuses as of 09/01/2022) Medications Medication Sig Dispensed Refills Start Date End Date Status Levothyroxine Sodium 100 MCG Oral Tablet (Levoxyl)Indications: Acquired hypothyroidism Take 1 Tablet (100 mcg) by mouth daily first thing in the morning. (at least 30 min prior to breakfast or other meds) 90 Tablet 3 03/28/2022 Active Amoxicillin 875 MG Oral Tablet Take 1 Tablet by mouth in the morning and 1 Tablet before bedtime. Do all this for 10 days. 20 Tablet 0 09/01/2022 09/11/2022 Active documented as of this encounter (statuses as of 09/01/2022) Active Problems Problem Noted Date Laryngitis 09/01/2022 Upper respiratory tract infection 2022 Non-recurrent acute serous otitis media of right ear 09/01/2022 COVID-19 03/25/2022 Hypothyroidism 02/04/2015 Overview: Per OB, tsh=2.5 during PPD positive 01/12/2013 Overview: quantiferon test negative on 06/04/2008. See scanned records. Immunization, BCG 01/02/2013 documented as of this encounter (statuses as of 09/01/2022) Immunizations Name Administration Dates Next Due COVID-19 mRNA, LNP-s, No Pre serve, 2-Dose Series (RxAdvance) 07/19/2020,06/28/2020 Seasonal Influenza, Quadriva lent, No Preserve, [...] Sign Reading Time Taken Comments Blood Pressure 122/80 09/01/2022 8:54 AM EDT Pulse 56 09/01/2022 8:54 AM EDT Temperature 36.3 C (97.3 F) 09/01/2022 8:54 AM ED T Respiratory Rate - - Oxygen Saturation - - Inhaled Oxygen Concentration - - Weight - - Height - - Body Mass Index - - documented in this encounter Progress Notes * NIKHIL Han - 09/01/2022 8:59 AM EDT URI Family Medicine Visit CC: Chief Complaint Patient presents with Laryngitis X 2 days, laryngitis and right ear pain. 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 History of Present Illness: Michael Orellana is a 36 year old female presenting with laryngitis and right ear pain x 2 days. Took 2 home covid tests and negative. tAKE IBUPROFEN WITH NO improvement -fever, t max - -chills -sweats -decreased appetite +tolerating fluids -congestion -loss of taste or smell -runny nose -PND +ear pain -sore throat -voice loss -blurred vision -eye discharge -cough -productive of mucous -sob -wheezing -nausea -diarrhea -constipation -vomiting -body aches -Rash -Sleep disruption - rash Social History Socioeconomic History Marital status: Spouse [...] on file Housing Stability: Not on file PMH: No past medical history on file. Past Surgical History: Procedure Laterality Date DENTAL SURGERY PROCEDURE NEC wisdom teeth Outpatient Medications Marked as Taking for the 09/01/22 encounter (Office Visit) with NIKHIL Han Medication Sig Levothyroxine Sodium 100 MCG Oral Tablet (Levoxyl) Take 1 Tablet (100 mcg) by mouth daily firstthing in the morning. (at least 30 min prior to breakfast or other meds) Review of patient's allergies indicates: Allergen Reactions Penicillins Diarrhea Most Recent Immunizations Administered Date(s) Administered COVID-19 mRNA, LNP-s, No Preserve, 2-Dose Series (RxAdvance) 07/19/2020 Seasonal Influenza, Quadrivalent, No Preserve, 6 Mons & Above, IM 02/01/2022 Seasonal Influenza, Quadrivalent, No Preserve, IM 01/28/2020 TDAP (age 10 and older)(Boostrix) 10/21/2015 Physical Exam: BP 122/80 | Pulse 56 | Temp 36.3 C (97.3 F) (Tympanic) Physical Exam HENT: Head: Normocephalic. Right Ear: A middle ear effusion is present. Tympanic membrane is erythematous and bulging. Left Ear: A middle ear effusion is present. Mouth/Throat: Pharynx: No posterior oropharyngeal erythema. Tonsils: No tonsillar exudate. Cardiovascular: Rate and Rhythm: Normal rate and regular rhythm. Pulmonary: Effort: Pulmonary effort is normal. Breath sounds: Normal breath sounds. Musculoskeletal: Cervical back: Normal range of motion. Lymphadenopathy: Cervical: No cervical adenopathy. Neurological: Mental Status: She is alert and oriented to person, place, and time. Psychiatric: Attention and Perception: Attention normal. Mood and Affect: Mood normal. Speech: Speech normal. Behavior: Behavior normal. Behavior is cooperative. Thought Content: Thought content normal. Cognition and Memory: Cognition and memory normal. Judgment: Judgment normal. Assessment and Plan: 1. Upper respiratory tract infection, unspecified type URI sx x 2 days Recommend supportive shelter covid testing negative 2. Laryngitis Suspected viral etiology Recommend Voice rest 3. Non-recurrent acute serous otitis media of right ear Early OM Treat with amox x 10 days(only hx of diarrhea with pcns, not true allergy) Med use and precautions reivewed Recommend supportive care including: -Humidifier -Rest -Push fluids -Reviewed pathophysiology of viral URI -Recommend handwashing and covering cough -Reviewed signs and symptoms in which to seek medical care I have advised the patient to call our office incase of any worsening or new symptoms. I spent a total of 20-29 minutes (exact time 20 mins) on the date of service in preparation, delivery, and documentation of the care provided to Michael Orellana excluding any time spent in the performance of separately billed services. Carlyn, DEJON, NIKHIL [facility] documented in this encounter Plan of Treatment Upcoming Encounters Date Type Specialty Care Team Description 03/28/2023 Office Visit Family Medicine Claudia Morales MD [address] [place] [address] Health Maintenance Due Date Last Done Comments Hepatitis B (1 of 3 - 3-dose series) 1983 HIV Screening 10/22/1998 Hepatitis C Screening 10/22/2001 COVID-19 Vaccine (4 - Booster for Pfizer series) 04/23/2021 02/26/2021, 07/19/2020, 06/28/2020 Depression Screening, Annual for Pts 12 and Over 09/16/2021 09/16/2020 TSH FOR THYROID MEDICATION MONITORING YEARLY 03/29/2023 03/29/2022, 04/06/2021, 04/10/2020, Additional history exists Diabetes Screening 03/29/2025 [...] as of this encounter Visit Diagnoses Diagnosis Upper respiratory tract infection, unspecified type- Primary Laryngitis Acute laryngitis, without mention of obstruction Non-recurrent acute serous otitis media of right ear documented in this encounter Care Teams Planning Technician Relationship Specialty Start Date End Date Claudia Morales MD [address] [place] [address] PCP - General Internal Medicine 03/25/22 documented as of this encounter"
--- OUTSIDE RECORDS SUMMARY | 2022-12-23 01:42 | External Medical Summary | Summary of Care ---
Author Name Unknown Organization [facility] Address [address] [place] [address] Phone [phone] Care Team Providers Care Tire Rebuilder Name Role Phone Claudia Morales MD Primary Care Provider Reason for Visit * Reason Onset Date Comments Hospital Follow-Up 10/07/2022 SHAINA Encounter Details Date Type Department Care Team Description 10/07/[address] [address] Odalis Barajas, KATIA Hospital Follow-Up ([facility]A) Allergies Active Allergy Reactions Severity Noted Date Comments Penicillins Diarrhea 02/04/2015 documented as of this encounter (statuses as of 10/08/2022) Medications Medication Sig Dispensed Refills Start Date End Date Status Levothyroxine Sodium 100 MCG Oral Tablet (Levoxyl)Indications:A cquired hypothyroidism Take 1 Tablet (100 mcg) by mouth daily first thing in the morning. (at least 30 min prior to breakfast or other meds) 90 Tablet 3 03/28/2022 Active documented as of this encounter (statuses as of 10/08/2022) Active Problems Problem Noted Date Laryngitis 09/01/2022 Upper respiratory tract infection 2022 Non-recurrent acute serous otitis media of right ear 09/01/2022 COVID-19 03/25/2022 Hypothyroidism 02/04/2015 Overview: Per OB, tsh=2.5 during PPD positive 01/12/2013 Overview: quantiferon test negative on 06/04/2008. See scanned records. Immunization, BCG 01/02/2013 documented as of this encounter (statuses as of 10/08/2022) Immunizations Name Administration Dates Next Due COVID-19 [...] encounter Miscellaneous Notes * Telephone Encounter - Odalis Barajas RN - 10/07/2022 11:43 AM EDT Transitions of Care Note Reason for Referral:Recent Admission Phone visit for follow up: SHAINA Admitted to: [facility], Date: 10/05/2022 Discharged to: Home, Date: 10/06/2022 Diagnosis driving hospitalization: Seizure Source/Contact: Patient SUBJECTIVE Consent: Verbal consent for review of hospital discharge: Yes REVIEW OF SYSTEMS Patient/Other Reports: Current patient/caregiver problems or concerns: States she is doing well at home. No further seizure activity. Going out of the country and is not available for PCP follow up on 10/11/22. States neurocleared her for trip. Will be back 10/17/2022 CV: Denies problems Pulmonary: Denies problems Chills/Sweats/Fever:Denies chills/sweats Denies fever Appetite:Denies problems such as nausea, vomiting, burning, decreased appetite Current diet: Regular Bowel: denies problems Bladder: denies problems Wound (If applicable): N/A Pain:Denies Sleep:Denies problems FUNCTIONAL STATUS: ADL'S: Needs Assistance With:N/A as pt is independent IADL'S: Needs Assistance With:N/A as pt is independent Cognitive and Mental Health: denies problems, alert and oriented x 3 and able to communicate, understand instructions, process information. MEDICATION RECONCILIATION Medications: Discharge med list reviewed with patient or caregiver No new or discontinued medications ASSESSMENT Medication Risk Assessment: No risks identified Did patient fail outpatient treatment? No Discharge instructions available for review? Yes PLAN Symptom Monitoring Interventions:Member/caregiver education - signs and symptoms to contact PrimaryCare (DO NOT DELETE-Three hester symptoms patient is to report to PCP) 1. Chest Pain/SOB 2. Fever/chills 3. Further seizure activity Pig Casting Machine OperatorLaundry Technician of Care interventions/Action Plan: Working to reschedule PCP appointment, message sent to PCP if this can be after trip or can be scheduled prior Educated on role of SHAINA completed with patient/caregiver. Educated patient/caregiver on patient right to have input on SHAINA plan of care. Verification of Home Health/DME if indicated: No Identified Care Gaps: No Care Gaps closed this call: Transition of Care follow-up communication Re-evaluation of Plan of Care and progress towards goals achievement: Patient education this visit: Verbal, Discussed reasons to call as above, notified of late hours and weekend provider visits available if needed. Plan to instructed to call Primary Care Provider with change in symptoms or as needed before next follow-up, discharge needs met, verbalizes understanding and agrees with plan. Odalis Barajas RN documented in this encounter Plan of Treatment Upcoming Encounters Date Type Specialty Care Team Description 11/01/2022 Office Visit Family Medicine Claudia Morales MD [address] [place] [address] 11/24/2022 Office Visit Neurology [facility] [address] [facility] [address] 03/28/2023 Office Visit Family Medicine Claudia Morales MD [address] [place] [address] Health Maintenance Due Date Last Done Comments [...] filedocumented as of this encounter Care Teams Tire Rebuilder Relationship Specialty Start Date End Date Claudia Morales MD [address] [place] [address] PCP - General Internal Medicine 03/25/22 documented as of this encounter
--- OUTSIDE RECORDS SUMMARY | 2022-12-23 01:42 | External Medical Summary | Summary of Care ---
Author Name Unknown Organization [facility] Address [address] [place] [address] Phone [phone] Care Team Providers Care Anthropology Professor Name Role Phone Claudia Morales MD Primary Care Provider Reason for Visit * Reason Onset Date Comments Appointment 10/08/2022 Encounter Details Date Type Department Care Team Description 10/08/2022 Telephone Neurology, [place] [address] [place] [address] Specified, Ayla No Resource [address] [place] [address] Appointment Allergies Active Allergy Reactions Severity Noted Date [...] Miscellaneous Notes * Telephone Encounter - NEELA Markham - 10/08/2022 12:10 PM EDT Patient verified identity by spelling of last name and date. Patient was recently admitted to [facility] for syncopal episode. Per patient Dr. Singletary [...] Patient was scheduled w/ Patience Dillard in [facility] but Dr. Singletary specified she should see someone in [place]. Does she need scheduled w/ cerebrovascular? I'm working on getting notes from hospital stay. documented in this encounter Plan of Treatment Upcoming Encounters Date Type Specialty Care Team Description 11/01/2022 Office Visit Family Medicine Claudia Morales MD [address] [place] [address] 11/24/2022 Office Visit Neurology Patience Dillard PA-C [address] [place], [place] [address] 03/28/2023 Office Visit Family Medicine Claudia Morales MD [address] [place] [address] Health Maintenance Due Date Last Done Comments [...] filedocumented as of this encounter Care Teams Anthropology Professor Relationship Specialty Start Date End Date Claudia Morales MD [address] [place] [address] PCP - General Internal Medicine 03/25/22 documented as of this encounter
--- OUTSIDE RECORDS SUMMARY | 2022-12-23 01:42 | External Medical Summary | Summary of Care ---
Author Name Unknown Organization [facility] Address [address] [place] [address] Phone [phone] Care Team Providers Care Trimming Assembler Name Role Phone Claudia Morales MD Primary Care Provider Reason for Visit * Reason Onset Date Comments NEW PATIENT 10/08/2022 Encounter Details Date Type Department Care Team Description 10/08/2022 Telephone Vascular Surgery, [facility] [address] [place] [address] Services, Scheduling [address] [place] [address] NEW PATIENT Allergies Active Allergy Reactions Severity [...] Miscellaneous Notes * Telephone Encounter - NEELA Chapman - 10/08/2022 5:56 PM EDT Syncope, unspecified syncope type [R55] Abnormal imaging of central nervous system [R90.89] New referral from PCP. Scheduled 10/20 GW with NEELA De La Garza documented in this encounter Plan of Treatment Upcoming Encounters Date Type Specialty Care Team Description 10/20/2022 Office Visit Vascular Surgery Dexter Johnson MD [address] [place] [address] 11/01/2022 Office Visit Family Medicine Claudia Morales MD [address] [place] [address] 11/24/2022 Office Visit Neurology Patience Dillard PA-C [address] [place] [address] 03/28/2023 Office Visit Family Medicine Claudia Morales MD [address] [place] [address] Health Maintenance Due Date Last Done Comments [...] filedocumented as of this encounter Care Teams Trimming Assembler Relationship Specialty Start Date End Date Claudia Morales MD [address] [place] [address] PCP - General Internal Medicine 03/25/22 documented as of this encounter
--- OUTSIDE RECORDS SUMMARY | 2022-12-23 01:42 | External Medical Summary | Summary of Care ---
Author Name Unknown Organization [facility] Address [address] [place] [address] Phone [phone] Care Team Providers Care Food Preparation Kitchen Aide Name Role Phone Claudia Morales MD Primary Care Provider Reason for Visit * Reason Onset Date Comments NEW PATIENT 10/08/2022 Encounter Details Date Type Department Care Team Description 10/08/2022 Telephone Vascular Surgery, [facility] [address] [place] [address] Services, Scheduling [address] [place] [address] NEW PATIENT Allergies Active Allergy Reactions Severity Noted Date Comments Penicillins Diarrhea 02/04/2015 documented as of this encounter (statuses as of 10/09/2022) Medications Medication Sig Dispensed Refills Start Date End Date Status Levothyroxine Sodium 100 MCG Oral Tablet (Levoxyl)Indications:A cquired hypothyroidism Take 1 Tablet (100 mcg) by mouth daily first thing in the morning. (at least 30 min prior to breakfast or other meds) 90 Tablet 3 03/28/2022 Active documented as of this encounter (statuses as of 10/09/2022) Active Problems Problem Noted Date Laryngitis 09/01/2022 Upper respiratory tract infection 2022 Non-recurrent acute serous otitis media of right ear 09/01/2022 COVID-19 03/25/2022 Hypothyroidism 02/04/2015 Overview: Per OB, tsh=2.5 during PPD positive 01/12/2013 Overview: quantiferon test negative on 06/04/2008. See scanned records. Immunization, BCG 01/02/2013 documented as of this encounter (statuses as of 10/09/2022) Immunizations Name Administration Dates Next Due COVID-19 [...] encounter Miscellaneous Notes * Telephone Encounter - Shana Hamilton PA-C - 10/09/2022 9:32 AM EDT New patient No triage Referred for syncope/convulsive seizures Referral notes state: "Neurology recommended neuroendovascular referral for "areas of luminal irregularity noted within the basilar and posterior cerebral arteries which may represent and underlying vasculitis." Per review of scanned documents: - Was in the ER at [facility] for 2 witnessed seizures on 10/05/22 and [...] however, had metal in jaw Per further [facility] notes/encounters: [facility] recommended pt to see "neuroendovascular" department. He [...] Vascular Surgery Dexter Johnson MD [address] [facility] [place] [address] 11/01/2022 Office Visit Family Medicine Claudia Morales MD [address] [place] [address] 11/24/2022 Office Visit Neurology Patience Dillard PA-C [address] [facility], [place] [address] 03/28/2023 Office Visit Family Medicine Claudia Morales MD [address] [place] [address] Health Maintenance Due Date Last Done Comments [...] filedocumented as of this encounter Care Teams Food Preparation Kitchen Aide Relationship Specialty Start Date End Date Claudia Morales MD [address] [place] [address] PCP - General Internal Medicine 03/25/22 documented as of this encounter
--- OUTSIDE RECORDS SUMMARY | 2022-12-23 01:42 | External Medical Summary | Summary of Care ---
Author Name Unknown Organization [facility] Address [address] [place] [address] Phone [phone] Care Team Providers Care Cutter Tender Name Role Phone Claudia Morales MD Primary Care Provider Encounter Details Date Type Department Care Team Description 10/05/2022 Hospital Encounter Radiology Film File [address] [place] [address] Arrived Allergies Active Allergy Reactions Severity Noted Date [...] Medicine Claudia Morales MD [address] [place] [address] 11/24/2022 Office Visit Neurology Patience Dillard PA-C [address] [place] [address] 03/28/2023 Office Visit Family Claudia Alaniz MD [address] [place] [address] Health Maintenance Due Date Last Done Comments [...] Procedure Name Priority Date/Time Associated Diagnosis Comments RADIOLOGY EXAM - CT (IMAGES ONLY, NO REPORT) Routine 10/05/2022 5:05 PM EDT documented in this encounter Results * RADIOLOGY EXAM - CT (IMAGES ONLY, NO REPORT) (10/05/2022 5:05 PM EDT) 10/05/2022 5:03 PM EDT Narrative Scheduling, Silent - 10/07/2022 2:40 PM EDT This is an imaging study not interpreted or resulted by a [facility] or [facility] contracted radiologist. Claudia Morales MD RAD CT documented in this encounter Care Teams Cutter Tender Relationship Specialty Start Date End Date Claudia Morales MD [address] [place] [address] [place] [address] PCP - General Internal Medicine 03/25/22 documented as of this encounter
--- OUTSIDE RECORDS SUMMARY | 2022-12-23 01:42 | External Medical Summary | Summary of Care ---
Author Name Unknown Organization [facility] Address [address] [place] [address] Phone [phone] Care Team Providers Care Peoplesoft Hcm Developer Name Role Phone Claudia Morales MD Primary Care Provider Encounter Details Date Type Department Care Team Description 10/06/2022 Orders Only Family Practice [facility] [address] [facility] [address] Claud[facility]ales MD [address] [facility] [address] Allergies Active Allergy Reactions Severity Noted Date Comments Penicillins Diarrhea 02/04/2015 documented as of this encounter (statuses as of 10/07/2022) Medications Medication Sig Dispensed Refills Start Date End Date Status Levothyroxine Sodium 100 MCG Oral Tablet (Levoxyl)Indications:A cquired hypothyroidism Take 1 Tablet (100 mcg) by mouth daily first thing in the morning. (at least 30 min prior to breakfast or other meds) 90 Tablet 3 03/28/2022 Active documented as of this encounter (statuses as of 10/07/2022) Active Problems Problem Noted Date Laryngitis 09/01/2022 Upper respiratory tract infection 2022 Non-recurrent acute serous otitis media of right ear 09/01/2022 COVID-19 03/25/2022 Hypothyroidism 02/04/2015 Overview: Per OB, tsh=2.5 during PPD positive 01/12/2013 Overview: quantiferon test negative on 06/04/2008. See scanned records. Immunization, BCG 01/02/2013 documented as of this encounter (statuses as of 10/07/2022) Immunizations Name Administration Dates Next Due COVID-19 [...] Encounters Date Type Specialty Care Team Description 10/11/2022 Office Visit Family Medicine Claudia Morales MD [address] [place] [address] 11/24/2022 Office Visit Neurology Patience Dillard PA-C [address] [place] [address] 03/28/2023 Office Visit Family Medicine Claudia Morales MD [address] [place] [id number] Health Maintenance Due Date Last Done Comments [...] - CT (IMAGES ONLY, NO REPORT) Routine 10/06/2022 3:00 PM EDT documented in this encounter Results * RADIOLOGY EXAM - CT (IMAGES ONLY, NO REPORT) (10/06/2022 3:00 PM EDT) 10/06/2022 2:58 PM EDT Narrative Scheduling, Silent - 10/07/2022 5:35 PM EDT This is an imaging study not interpreted or resulted by a [facility] or [facility] contracted radiologist. Claudia Morales MD RAD CT documented in this encounter Care Teams Peoplesoft Hcm Developer Relationship Specialty Start Date End Date Claudia Morales MD [address] [place] [address] PCP - General Internal Medicine 03/25/22 documented as of this encounter
--- OUTSIDE RECORDS SUMMARY | 2022-12-23 01:42 | External Medical Summary | Summary of Care ---
Author Name Unknown Organization [facility] Address [address] [place] [address] Phone [phone] Care Team Providers Care Perch Machine Inspector Name Role Phone Claudia Morales MD Primary Care Provider Encounter Details Date Type Department Care Team Description 10/06/2022 Hospital Encounter Radiology Film File [address] [place] [address] Arrived Allergies Active Allergy Reactions [...] Medicine Claudia Morales MD [address] [place] [address] 11/24/2022 Office Visit Neurology Patience Dillard PA-C [address] [place] [address] 03/28/2023 Office Visit Family Claudia Alaniz MD [address] [place] [address] Health Maintenance Due Date Last Done Comments [...] interpreted or resulted by a [facility] or [facility] contracted radiologist. Claudia Morales MD RAD CT documented in this encounter Care Teams Perch Machine Inspector Relationship Specialty Start Date End Date Claudia Morales MD [address] [place] [address] [place] [address] PCP - General Internal Medicine 03/25/22 documented as of this encounter
--- OUTSIDE RECORDS SUMMARY | 2022-12-23 01:42 | External Medical Summary | Summary of Care ---
Author Name Unknown Organization [place] [address] Care Team Providers Care Vocational Services Specialist Name Role Phone Claudia Morales MD Primary Care Provider Reason for Visit * Reason Onset Date Comments Other 03/26/2022 Pharmacy informa tion on RX Encounter Details Date Type Department Care Team Description 03/26/2022 Telephone Family Practice [facility] [address] Claudia Morales MD 132 [place] [address] Other (Pharmacy information on RX) Allergies Active Allergy Reactions Severity Noted Date Comments Penicillins Diarrhea 02/04/2015 documented as of this encounter (statuses as of 03/28/2022) Medications Medication Sig Dispensed Refills Start Date End Date Status Levothyroxine Sodium 100 MCG Oral Tablet (Levoxyl)Indications :Acquired hypothyroidism Take 1 Tablet (100 mcg) by mouth daily first thing in the morning. (at least 30 min prior to breakfast or other meds) 90 Tablet 3 03/28/2022 Active Levothyroxine Sodium 100 MCG Oral Tablet (Levoxyl)Indications :Acquired hypothyroidism (at least 30 min prior to breakfast or other meds) 90 Tablet 3 03/25/2022 2 Discontinue d(Refill) documented as of this encounter (statuses as of 03/28/2022) Active Problems Problem Noted Date COVID-19 03/25/2022 Hypothyroidism 02/04/2015 Overview: Per OB, tsh=2.5 during PPD positive 01/12/2013 Overview: quantiferon test negative on 06/04/2008. See scanned records. Immunization, BCG 01/02/2013 documented as of this encounter (statuses as of 03/28/2022) Immunizations Name Administration Dates Next Due COVID-19 mRNA, LNP-s, No Pre serve, 2-Dose Series (3PointData) 07/19/2020,06/28/2020 Seasonal Influenza, Quadriva lent, No Preserve, [...] encounter Miscellaneous Notes * Telephone Encounter - Aayush Haji RN - 03/26/2022 2:50 PM EST Please see previous message. Medication order pended. Please review and sign if agree. Did you pend patient's preferred pharmacy and medication before forwarding?yes Pharmacy: [id number] [address] [facility] Pending Prescriptions: Disp Refills Levothyroxine Sodium 100 MCG Oral Tablet *90 Tab*3 Sig: (at least 30 min prior to breakfast or other meds) Last Visit: 03/25/2022 (in office), Visit date not found (telemedicine) Next Visit: Visit date not found If no future appointments scheduled, and last appointment is greater than a year ago, please schedule patient for a follow-up appointment Last date the medication was ordered: 03/25/2022 Is this request for a controlled substance?No Urine Drug Screen:No results found for this or any previous visit. Patient Phone Numbers Labs: Lab Results Component Value Date/Time TSH 1.14 04/06/2021 01:43 PM TSH 0.55 04/10/2020 02:18 PM * Telephone Encounter - NEELA Moe - 03/26/2022 1:27 PM EST Pharmacy contacted, has "Missing/illegible Information" on RX for Levothyroxine. Item specified is Sig Code. Please correct and resubmit. documented in this encounter Plan of Treatment Upcoming Encounters Date Type Specialty Care Team Description 03/28/2023 Office Visit Family Medicine Claudia Morales MD [address] [place] [address] [place] [address] Health Maintenance Due Date Last Done Comments Diabetes Screening 1983 Hepatitis B (1 of 3 - 3-dose series) 1983 HIV Screening 10/22/1998 Hepatitis C Screening 10/22/2001 COVID-19 Vaccine (4 - Booster for Pfizer series) 04/23/2021 02/26/2021, 07/19/2020, 06/28/2020 Depression Screening, Annual for Pts 12 and Over 09/16/2021 09/16/2020 TSH FOR THYROID MEDICATION MONITORING YEARLY 04/06/2022 04/06/2021, 04/10/2020, 11/24/2018, Additional history exists PAP SMEAR-EVERY 3 YRS,AGES 21-65 04/06/2024 04/06/2021, 02/11/2016, 02/19/2014 DTaP,Tdap,and Td Vaccines (2 - Td or Tdap) 10/20/2025 10/21/2015, 10/21/2015 Influenza Vaccine (FLU shot) Completed 01/2022, 01/16/2021, [...] as of this encounter Visit Diagnoses Diagnosis Acquired hypothyroidism- Primary Unspecified hypothyroidism documented in this encounter Care Teams Vocational Services Specialist Relationship Specialty Start Date End Date Claudia Morales MD [address] [place] [address] PCP - General Internal Medicine 03/25/22 documented as of this encounter
--- OUTSIDE RECORDS SUMMARY | 2022-12-23 01:42 | External Medical Summary | Summary of Care ---
Author Name Unknown Organization [facility] Address [address] [place] [address] Phone [phone] Care Team Providers Care Flame Brazing Machine Operator Name Role Phone Claudia Morales MD Primary Care Provider Reason for Visit * Reason Onset Date Comments Appointment 10/08/2022 TRIAGE 10/08/2022 Encounter Details Date Type Department Care Team Description 10/08/2022 Telephone [facility] [address] [place] [address] Specified, Mo No Resource [address] [place] [address] Appointment; TRIAGE Allergies Active Allergy [...] Miscellaneous Notes * Telephone Encounter - NEELA Winston - [...] call or myg response would be ok [phone] Please advise Thank you * Telephone Encounter [...] Patient was scheduled w/ Patience Dillard in [facility] but Dr. Singletary specified she should see someone in [place]. Does she need scheduled w/ cerebrovascular? I'm working on getting notes from hospital stay. documented in this encounter Plan of Treatment Upcoming Encounters Date Type Specialty Care Team Description 10/20/2022 Office Visit Vascular Surgery Dexter Johnson MD [address] [place] [address] 11/01/2022 Office Visit Family Medicine Claudia Morales MD [address] [place] [address] 11/24/2022 Office Visit Neurology Patience Dillard PA-C [address] [place] [address] 03/28/2023 Office Visit Family Medicine Claudia Morales MD [address] [place] [address] Health Maintenance Due Date Last Done Comments [...] filedocumented as of this encounter Care Teams Flame Brazing Machine Operator Relationship Specialty Start Date End Date Claudia Morales MD 132 [facility] [place] [address] PCP - General Internal Medicine 03/25/22 documented as of this encounter
--- OUTSIDE RECORDS SUMMARY | 2022-12-23 01:42 | External Medical Summary | Summary of Care ---
Author Name Unknown Organization [facility] Address [address] [place] [address] Phone [phone] Care Team Providers Care Truck Service Manager Name Role Phone Claudia Morales MD Primary Care Provider Reason for Visit * Reason Onset Date Comments Appointment 10/08/2022 Encounter Details Date Type Department Care Team Description 10/08/2022 Telephone Neurology, [place] [address] [place] [address] Specified, [place] No Resource [address] [place] [address] Appointment Allergies Active Allergy Reactions [...] Patient was scheduled w/ Patience Dillard in [facility] but Dr. Singletary specified she should see someone in [place]. Does she need scheduled w/ cerebrovascular? I'm working on getting notes from hospital stay. documented in this encounter Plan of Treatment Upcoming Encounters Date Type Specialty Care Team Description 11/01/2022 Office Visit Family Medicine Claudia Morales MD [address] [place] [address] 11/24/2022 Office Visit Neurology Patience Dillard PA-C [address] [place], [place] [address] [address] 03/28/2023 Office Visit Family Medicine Claudia Morales MD [address] [place] [address] Health Maintenance Due Date Last Done Comments [...] filedocumented as of this encounter Care Teams Truck Service Manager Relationship Specialty Start Date End Date Claudia Morales MD [address] [place] [address] PCP - General Internal Medicine 03/25/22 documented as of this encounter
--- OUTSIDE RECORDS SUMMARY | 2022-12-23 01:42 | External Medical Summary | Summary of Care ---
Author Name Unknown Organization [facility] Address [address] [place] [address] Phone [phone] Care Team Providers Care Cupola Repairer Name Role Phone Claudia Morales MD Primary Care Provider Encounter Details Date Type Department Care Team Description 10/06/2022 Hospital Encounter Radiology Film File [address] [place] [address] Arrived Allergies Active Allergy Reactions [...] Medicine Claudia Morales MD [address] [place] [address] 11/24/2022 Office Visit Neurology Patience Dillard PA-C [address] [facility] [place] [address] 03/28/2023 Office Visit Family Claudia Alaniz MD [address] [place] [address] Health Maintenance Due Date Last Done Comments [...] CT (IMAGES ONLY, NO REPORT) Routine 10/06/2022 3:05 PM EDT documented in this encounter Results * RADIOLOGY EXAM - CT (IMAGES ONLY, NO REPORT) (10/06/2022 3:05 PM EDT) 10/06/2022 2:58 PM EDT Narrative Scheduling, Silent - 10/07/2022 5:37 PM EDT This is an imaging study not interpreted or resulted by a [facility] or [facility] contracted radiologist. Claudia Morales MD RAD CT documented in this encounter Care Teams Cupola Repairer Relationship Specialty Start Date End Date Claudia Morales MD [address] [place] [address] [place] [address] PCP - General Internal Medicine 03/25/22 documented as of this encounter
--- OUTSIDE RECORDS SUMMARY | 2022-12-23 01:42 | External Medical Summary | Summary of Care ---
Author Name Unknown Organization [facility] Address [address] [place] [address] Phone [phone] Care Team Providers Care Store Team Member Name Role Phone Claudia Morales MD Primary Care Provider Encounter Details Date Type Department Care Team Description 10/05/2022 Orders Only Family Practice [facility] [address] [facility] [address] Claudia Morales MD [address] [facility] [address] Allergies Active Allergy Reactions Severity Noted Date [...] Medicine Claudia Morales MD [address] [place] [address] 11/24/2022 Office Visit Neurology Patience Dillard PA-C [address] [place] [address] 03/28/2023 Office Visit Family Medicine Claudia Morales MD [address] [place] [phone] Health Maintenance Due Date Last Done Comments [...] interpreted or resulted by a [facility] or [facility] contracted radiologist. Claudia Morales MD RAD CT documented in this encounter Care Teams Store Team Member Relationship Specialty Start Date End Date Claudia Morales MD [address] [place] [address] PCP - General Internal Medicine 03/25/22 documented as of this encounter
--- OUTSIDE RECORDS SUMMARY | 2022-12-23 01:42 | External Medical Summary | Summary of Care ---
Author Name Unknown Organization [place] [address] Care Team Providers Care Weight Trainer Name Role Phone Claudia Morales MD Primary Care Provider Reason for Visit * Reason Onset Date Comments Other 03/26/2022 Pharmacy informa tion on RX Encounter Details Date Type Department Care Team Description 03/26/2022 Telephone Family Practice [facility] [address] Claudia Morales MD 132 [place] [address] Other (Pharmacy information on RX) Allergies Active Allergy Reactions Severity Noted Date Comments Penicillins Diarrhea 02/04/2015 documented as of this encounter (statuses as of 04/02/2022) Medications Medication Sig Dispensed Refills Start Date [...] as of this encounter (statuses as of 04/02/2022) Active Problems Problem Noted Date COVID-19 03/25/2022 Hypothyroidism 02/04/2015 Overview: Per OB, tsh=2.5 during PPD positive 01/12/2013 Overview: quantiferon test negative on 06/04/2008. See scanned records. Immunization, BCG 01/02/2013 documented as of this encounter (statuses as of 04/02/2022) Immunizations Name Administration Dates Next Due COVID-19 mRNA, LNP-s, No Pre serve, 2-Dose Series (Giftbar) 07/19/2020,06/28/2020 Seasonal Influenza, Quadriva lent, No Preserve, [...] and medication before forwarding?yes Pharmacy: [id number] [address] [facility] Pending Prescriptions: Disp Refills Levothyroxine Sodium 100 [...] Office Visit Family Medicine Claudia Morales MD [address] [place] [address] [place] [address] Health Maintenance Due Date Last Done Comments Hepatitis B (1 of 3 - 3-dose series) 1985 HIV Screening 10/22/1998 Hepatitis C Screening 10/22/2001 COVID-19 Vaccine (4 - Booster for Pfizer series) 04/23/2021 02/26/2021, 07/19/2020, 06/28/2020 Depression Screening, Annual for Pts 12 and Over 09/16/2021 09/16/2020 TSH FOR THYROID MEDICATION MONITORING YEARLY 03/29/2023 03/29/2022, 04/06/2021, 04/10/2020, Additional history exists PAP SMEAR-EVERY 3 YRS,AGES 21-65 04/06/2024 04/06/2021, 02/11/2016, 02/19/2014 Diabetes Screening 03/29/2025 03/29/2022 DTaP,Tdap,and Td [...] hypothyroidism documented in this encounter Care Teams Weight Trainer Relationship Specialty Start Date End Date Claudia Morales MD [address] [place] [address] PCP - General Internal Medicine 03/25/22 documented as of this encounter
--- OUTSIDE RECORDS SUMMARY | 2022-12-23 01:42 | External Medical Summary | Summary of Care ---
Author Name Unknown Organization [facility] Address [address] [place] [address] Phone [phone] Care Team Providers Care Communications Strategist Name Role Phone Claudia Morales MD Primary Care Provider Encounter Details Date Type Department Care Team Description 10/06/2022 Orders Only Family Practice [facility] [address] [facility] [address] Claudia Morales MD [address] [facility] [address] Allergies Active Allergy Reactions Severity Noted Date [...] Medicine Claudia Morales MD [address] [place] [address] 11/24/2022 Office Visit Neurology Patience Dillard PA-C [address] [place] [address] 03/28/2023 Office Visit Family Medicine Claudia Morales MD [address] [phone] Health Maintenance Due Date Last Done Comments [...] interpreted or resulted by a [facility] or [facility] contracted radiologist. Claudia Morales MD RAD CT documented in this encounter Care Teams Communications Strategist Relationship Specialty Start Date End Date Claudia Morales MD [address] [place] [address] PCP - General Internal Medicine 03/25/22 documented as of this encounter
--- OUTSIDE RECORDS SUMMARY | 2022-12-23 01:42 | External Medical Summary | Summary of Care ---
Author Name Unknown Organization [facility] Address [address] [place] [address] Phone [phone] Care Team Providers Care Network Intern Name Role Phone Claudia Morales MD Primary Care Provider Reason for Visit * Reason Onset Date Comments Hospital Follow-Up 10/07/2022 SHAINA Encounter Details Date Type Department Care Team Description 10/07/[address] [address] Odalis Barajas, KATIA Hospital Follow-Up [...] visit for follow up: SHAINA Admitted to: [facility], Date: 10/05/2022 Discharged to: Home, Date: 10/06/2022 [...] Pain/SOB 2. Fever/chills 3. Further seizure activity Camera SupervisorPolicy Services Representative of Care interventions/Action Plan: Working to reschedule [...] Morales MD [address] [place] [address] 11/24/2022 Office Visit Neurology [facility] [address] 03/28/2023 Office Visit Family Medicine Claudia Morales MD [address] [place] [address] Health Maintenance Due Date Last Done Comments [...] filedocumented as of this encounter Care Teams Network Intern Relationship Specialty Start Date End Date Claudia Morales MD [address] [place] [address] PCP - General Internal Medicine 03/25/22 documented as of this encounter
--- OUTSIDE RECORDS SUMMARY | 2022-12-23 01:42 | External Medical Summary | Summary of Care ---
Author Name Unknown Organization [place] [address] Care Team Providers Care Model Builder Display Name Role Phone Claudia Morales MD Primary Care Provider Encounter Details Date Type Department Care Team Description 03/31/2022 Orders Only Family Practice [facility] [address] Claudia Morales MD 132 [place] [address] Allergies Active Allergy Reactions Severity Noted Date Comments Penicillins Diarrhea 02/04/2015 documented as of this encounter (statuses as of 03/31/2022) Medications Medication Sig Dispensed Refills Start Date End Date Status Levothyroxine Sodium 100 MCG Oral Tablet (Levoxyl)Indications:A cquired hypothyroidism Take 1 Tablet (100 mcg) by mouth daily first thing in the morning. (at least 30 min prior to breakfast or other meds) 90 Tablet 3 03/28/2022 Active documented as of this encounter (statuses as of 03/31/2022) Active Problems Problem Noted Date COVID-19 03/25/2022 Hypothyroidism 02/04/2015 Overview: Per OB, tsh=2.5 during PPD positive 01/12/2013 Overview: quantiferon test negative on 06/04/2008. See scanned records. Immunization, BCG 01/02/2013 documented as of this encounter (statuses as of 03/31/2022) Immunizations Name Administration Dates Next Due COVID-19 [...] Family Medicine Claudia Morales MD [address] [place] [address] Health Maintenance Due Date Last Done Comments Diabetes Screening 1985 03/29/2022 Hepatitis B (1 of 3 - 3-dose series) 1985 HIV Screening 10/22/1998 Hepatitis C Screening 10/22/2001 COVID-19 Vaccine (4 - Booster for Pfizer series) 04/23/2021 02/26/2021, 07/19/2020, 06/28/2020 Depression Screening, Annual for Pts 12 and Over 09/16/2021 09/16/2020 TSH FOR THYROID MEDICATION MONITORING YEARLY 04/06/2022 03/29/2022, 04/06/2021, 04/10/2020, Additional history exists PAP [...] Procedure Name Priority Date/Time Associated Diagnosis Comments TSH WITH FREE T4 IF INDICATED Routine 03/29/2022 CHEMISTRY-OUTSIDE Routine 03/29/2022 documented in this encounter Results * TSH WITH FREE T4 IF INDICATED (03/29/2022) TSH W/REFLEX TO FT4 1.48 0.40 - 4.50 MIU/L OUTSIDE LAB (SEE SCANNED REPORT) Blood Venous blood specimen / Unknown 03/29/2022 Claudia Morales MD LAB BLOOD [facility] OUTSIDE LAB (SEE SCANNED REPORT) * (ABNORMAL) CHEMISTRY-OUTSIDE (03/29/2022) CREATININE-OUTSID E LAB OUTSIDE LAB (SEE SCANNED REPORT) EGFR-OUTSIDE LAB OUT SIDE LAB (SEE SCANNED REPORT) POTASSIUM-OUTSIDE LAB OUTSIDE LAB (SEE SCANNED REPORT) GLUCOSE-OUTSIDE LAB 90 65 - 99 MG/DL OUTSIDE LAB (SEE SCANNED REPORT) HOURS FASTING OUTSID E LAB (SEE SCANNED REPORT) TRIGLYCERIDES-OUT SIDE LAB 60 <150 MG/DL OUTSIDE LAB (SEE SCANNED REPORT) CHOLESTEROL-OUTSI DE LAB 212(A) <200 MG/DL OUTSIDE LAB (SEE SCANNED REPORT) HDL-OUTSIDE LAB 55 OUTS [place] LAB (SEE SCANNED REPORT) CHOL/HDL RATIO-OUTSIDE LAB 3.9 OUTSIDE LA B (SEE SCANNED REPORT) LDL (CALCULATED)-OUTS [place] LAB 142(A) <100 MG/DL OUTSIDE LAB (SEE SCANNED REPORT) LDL (DIRECT MEASURE)-OUTSIDE LAB OUTSIDE LAB (SEE SCANNED REPORT) HEMOGLOBIN, [id number] LAB OUTSIDE LAB (SEE SCANNED REPORT) PHOSPHORUS-OUTSID E LAB OUTSIDE LAB (SEE SCANNED REPORT) PTH-OUTSIDE LAB OUTS [place] LAB (SEE SCANNED REPORT) MICROALBUMIN RATIO-OUTSIDE LAB OUTSIDE LA B (SEE SCANNED REPORT) PROTEIN, UA-OUTSIDE LAB OUTSIDE LAB (SEE SCANNED REPORT) HEMOGLOBIN-OUTSID E LAB OUTSIDE LAB (SEE SCANNED REPORT) CHEMISTRY COMMENT-OUTSIDE LAB OUTSIDE LAB (SEE SCANNED REPORT) Comment:SEE SCAN: LIPID PANE L, GLUCOSET 03/29/2022 Claudia Morales MD LABORATORY OUTSIDE LAB (SEE SCANNED REPORT) documented in this encounter Care Teams Model Builder Display Relationship Specialty Start Date End Date Claudia Morales MD [address] [place] [address] [place] [address] PCP - General Internal Medicine 03/25/22 documented as of this encounter
--- OUTSIDE RECORDS SUMMARY | 2022-12-23 01:42 | External Medical Summary | Summary of Care ---
Author Name Unknown Organization [facility] Address [address] [place] [address] Phone [phone] Care Team Providers Care Type Mapper Name Role Phone Claudia Morales MD Primary Care Provider Reason for Visit * Reason Onset Date Comments Appointment 10/08/2022 Encounter Details Date Type Department Care Team Description 10/08/2022 Telephone Neurology, [place] [address] [place] [address] Specified, Ayla No Resource [address] [place] [address] Appointment Allergies Active Allergy Reactions [...] Patient was scheduled w/ Patience Dillard in [facility] but Dr. Singletary specified she should see someone in [place]. Does she need scheduled w/ cerebrovascular? I'm working on getting notes from hospital stay. documented in this encounter Plan of Treatment Upcoming Encounters Date Type Specialty Care Team Description 11/01/2022 Office Visit Family Medicine Claudia Morales MD [address] [place] [address] 11/24/2022 Office Visit Neurology Patience Dillard PA-C [address] [place], [place] [address] [address] 03/28/2023 Office Visit Family Medicine Claudia Morales MD [address] [place] [address] Health Maintenance Due Date Last Done Comments [...] filedocumented as of this encounter Care Teams Type Mapper Relationship Specialty Start Date End Date Claudia Morales MD [address] [place] [address] PCP - General Internal Medicine 03/25/22 documented as of this encounter
--- OUTSIDE RECORDS SUMMARY | 2022-12-23 01:43 | External Medical Summary | Summary of Care ---
Author Name Unknown Organization [place] [address] Care Team Providers Care Concrete Pump Operator Helper Name Role Phone Unavailable Primary Care Provider Unavailabl e Reason for Visit * Reason Onset Date Comments Physical-Employment Pt here for work CPE and has form to be completed. Medication Administration 01/16/2021 Flu an d/or Pneumo Inj Encounter Details Date Type Department Care Team Description 01/16/2021 Office Visit Family Practice [facility] [address] [facility] [place] [address] Shannon Huang PA-C [address] [facility] [address] [phone] Encounter for physical examination related to employment*; Need for prophylactic vaccination and inoculation against influenza; Acquired hypothyroidism Allergies Active Allergy Reactions Severity Noted Date Comments Penicillins Diarrhea 02/04/2015 documented as of this encounter (statuses as of 01/16/2021) Medications Medication Sig Dispensed Refills Start Date End Date Status Levothyroxine Sodium 100 MCG Oral Tablet (LEVOXYL)Indications: Hypothyroidism TAKE 1 TABLET BY MOUTH DAILY. (AT LEAST 30 MIN PRIOR TO BREAKFAST OR OTHER MEDS) 30 Tab 11 04/10/2020 Active documented as of this encounter (statuses as of 01/16/2021) Active Problems Problem Noted Date Hypothyroidism 02/04/2015 Overview: Per OB, tsh=2.5 during PPD positive 01/12/2013 Overview: quantiferon test negative on 06/04/2008. See scanned records. Immunization, BCG 01/02/2013 documented as of this encounter (statuses as of 01/16/2021) Immunizations Name Administration Dates Next Due COVID-19 mRNA, LNP-s, No Pre serve, 2-Dose Series (Pfizer) 07/19/2020,06/28/2020 Seasonal Influenza, Quadriva lent, No Preserve, 6 Mons & Above, IM 01/16/2021,01/28/2020,01/26/2019, 0 18 Seasonal Influenza, Quadriva lent, No Preserve, IM 01/28/2020,01/26/2019,01/16/2015 TDAP (age 10 and older)(Boostrix) 10/21/2015 documented as of this encounter Social History Tobacco Use Types Packs/Day Years Used Date Never Smoker Smokeless Tobacco: Never Used Alcohol Use Drinks/Week oz/Week Comments No Food Insecurity Answer Date Recorded Within the past 12 months, y ou worried that your food would run out before you got money to buy more. Never true Within the past 12 months, t he food you bought just didn't last and you didn't have money to get more. Never true Sex Assigned at Date Recorded Not on file Job Start Date Occupation Industry Not on file Not on file Not on file documented as of this encounter Last Filed Vital Signs Vital Sign Reading Time Taken Comments Blood Pressure 106/80 01/16/2021 1:10 PM EDT Pulse 45 01/16/2021 1:10 PM EDT Temperature 36.9 C (98.5 F) 01/16/2021 1:10 PM ED T Respiratory Rate 16 01/16/2021 1:10 PM EDT Oxygen Saturation - - Inhaled Oxygen Concentration - - Weight 74.4 kg (164 lb) 01/16/2021 1:10 PM EDT Height - - Body Mass Index 26.47 09/16/2020 7:55 AM EDT documented in this encounter Patient Instructions * Patient Instructions* Tiffanie Lopez LPN - 01/16/2021 1:12 PM EDT ~~PATIENT INSTRUCTIONS FOR FLU SHOT~~ Possible side effects of influenza vaccine, (flu shot), are usually mild and include: 1. Soreness or redness at injection site 2. Low grade fever 3. Body aches You may use Tylenol/Acetaminophen as needed for these symptoms. LET YOUR DOCTOR KNOW IMMEDIATELY IF YOU HAVE DIFFICULTY BREATHING OR SWALLOWING, EXPERIENCE ITCHINGOF FEET OR HANDS, HAVE SWELLING OF EYES, FACE OR INSIDE OF NOSE. documented in this encounter Progress Notes * Shannon Huang PA-C - 01/16/2021 1:33 PM EDT HPI: Michael Orellana is a 35 year old female who presents to clinic for work physical exam. Working at [employer] and is due for biennial re-examination. No acute complaints to discuss. She exercises regularly in the morning. No limiting chest pain or shortness of breath. Has 3 school age children at home. No issues with thyroid medication. ROS: See HPI for positives and negatives. Patient denies additional complaints. PAST MEDICAL HISTORY: Patient Active Problem List Diagnosis Code Immunization, BCG Z23 PPD positive R76.11 Hypothyroidism E03.9 Past Surgical History: Procedure Laterality Date DENTAL SURGERY PROCEDURE NEC wisdom teeth Review of patient's allergies indicates: Allergen Reactions Penicillins Diarrhea Current Outpatient Medications Medication Sig Dispense Refill Levothyroxine Sodium 100 MCG Oral Tablet (LEVOXYL) TAKE 1 TABLET BY MOUTH DAILY. (AT LEAST 30 MIN PRIOR TO BREAKFAST OR OTHER MEDS) 30 Tab 11 Nursing Notes: Tiffanie Lopez LPN 01/16/21 1314 Signed Chief Complaint Patient presents with Physical-Employment Pt here for work CPE and has form to be completed. EXAM: BP 106/80 | Pulse 45 | Temp 36.9 C (98.5 F) (Tympanic) | Resp 16 | Wt 74.4 kg (164 lb) | BMI 26.47 kg/m | BSA 1.86 m GENERAL: alert, healthy, no distress, well nourished and well developed HEAD: Normocephalic, atraumatic EYES: PERRL, EOMI, Conjunctiva are pink and non-injected, sclera clear EARS: External ears normal, Canals clear, TM's clear with good cone of light NOSE: no purulent discharge, no sinus tenderness, no mucosal erythema or edema OROPHARYNX: no exudate, no erythema, lips, buccal mucosa, and tongue normal and mucous membranes are moist NECK: supple, no adenopathy HEART: regular rate & rhythm, no murmurs and no gallops LUNGS: clear to auscultation bilaterally, no wheezing, rales or rhonchi ABDOMEN: abdomen soft, non-tender, normal bowel sounds and no masses or organomegaly SKIN: skin color, texture, turgor are normal NEURO: alert & oriented x 3 with fluent speech, no focal motor/sensory deficits, gait normal, reflexes normal and symmetric ASSESSMENT/PLAN Encounter for physical examination related to employment (Primary) Form completed. Need for prophylactic vaccination and inoculation against influenza - INFLUENZA VACC, QUAD, PF, 6 MONTHS & UP, 0.5 ML, IM Acquired hypothyroidism Check labs next visit. Follow Up: Return in about 2 months (around 03/18/2021) for Return with AP. | For: Return with AP |Check-out note: PAP Patient Instructions ~~PATIENT INSTRUCTIONS FOR FLU SHOT~~ Possible side effects of influenza vaccine, (flu shot), are usually mild and include: 1. Soreness or redness at injection site 2. Low grade fever 3. Body aches You may use Tylenol/Acetaminophen as needed for these symptoms. LET YOUR DOCTOR KNOW IMMEDIATELY IF YOU HAVE DIFFICULTY BREATHING OR SWALLOWING, EXPERIENCE ITCHINGOF FEET OR HANDS, HAVE SWELLING OF EYES, FACE OR INSIDE OF NOSE. Shannon Huang PA-C [address] [address] This chart was completed in part utilizing bTendo Speech Voice Recognition Software. Grammatical errors, random word insertions, prounoun errors, and incomplete sentences are an occasional consequence of this system due to software limitations, ambient noise, and hardware issues. Any formal questions or concerns about the content, text, or information contained within the body of this dictation should be directly addressed to the provider for clarification. * Tiffanie Lopez LPN - 01/16/2021 1:12 PM EDT PRE - ADMINISTRATION DOCUMENTATION Are you experiencing any cold symptoms or fever? No Have you had Guillain-Pollock Syndrome (an illness that causes paralysis) within the last 6 weeks? No Have you had the flu shot in the past? YES Have you ever had a reaction to the flu shot? No Tiffanie Lopez LPN, 01/16/2021 1:12 PM Immunization Administration Documentation Time Out Procedure Performed: Yes Patient Identified (Ask Name/Date of ): Yes Does the patient have a fever greater than 101 degrees today? No Patient allergic to latex? No VFC Stock: No Immunization(s) verified: Yes, Immunization Name: Flu, VIS Sheet(s) given: Yes Verified Side and Site: Yes Verified Shot(s) with Parent(s)/Patient: Yes documented in this encounter Nursing Notes * Tiffanie Lopez LPN - 01/16/2021 1:09 PM EDT Chief Complaint Patient presents with Physical-Employment Pt here for work CPE and has form to be completed. documented in this encounter Plan of Treatment Upcoming Encounters Date Type Specialty Care Team Description 04/06/2021 Office Visit Family Medicine Shannon Huang PA-C [address] [facility] [place] [address] [phone] 09/29/2021 Office Visit Dermatology Sue Abraham PA-C [address] [facility] [address] [phone] Health Maintenance Due Date Last Done Comments PAP SMEAR-EVERY 3 YRS,AGES 21-65 02/10/2019 02/11/2016, 02/19/2014 DTaP,Tdap,and Td Vaccines (2 - Td) 10/20/2025 10/21/2015 COVID-19 Vaccine Completed 07/19/2020, 06/28/2020 Influenza Vaccine (FLU shot) Completed , 01/28/2020, 01/28/2020, Additional history exists MENINGOCOCCAL (MENACTRA/MENVEO) Aged Out No longer eligible based on patient's age to complete this topic Pneumococcal Vaccine: Pediatrics (0 to 5 Years) and At-Risk Patients (6 to 64 Years) Aged Out No longer eligible based on patient's age to complete this topic documented as of this encounter Implants Not on filedocumented as of this encounter Visit Diagnoses Diagnosis Encounter for physical examination related to employment- Primary Need for prophylactic vaccination and inoculation against influenza Acquired hypothyroidism Unspecified hypothyroidism documented in this encounter Advance Directives Documents on File Type Date Recorded Patient Re Dye Hand Expl 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 Advanced Directive Advanced Directive Advanced Directive Advanced Directive Advanced Directive Advanced Directive Advanced Directive Advanced Directive Advanced Directive Advanced Directive Advanced Directive Advanced Directive Advanced Directive Advanced Directive Advanced Directive Advanced Directive Advanced Directive Advanced Directive"
--- OUTSIDE RECORDS SUMMARY | 2022-12-23 01:43 | External Medical Summary | Summary of Care ---
Author Name Unknown Organization [place] [address] Care Team Providers Care Vest Busheler Name Role Phone Danny Thurston MD Primary Care Provider [phone] Reason for Visit * Reason Onset Date Comments COVID-19 Screening 11/15/2021 Encounter Details Date Type Department Care Team Description 11/15/2021 Telephone COVID19 Screening [facility] DEPT CLOSED 02/03/21 [address] [place] [id number], Automated Provider COVID-19 Screening Allergies Active Allergy Reactions Severity Noted Date Comments Penicillins Diarrhea 02/04/2015 documented as of this encounter (statuses as of 11/15/2021) Medications Medication Sig Dispensed Refills Start Date End Date Status Levothyroxine Sodium 100 MCG Oral Tablet (Levoxyl)Indications :Hypothyroidism TAKE 1 TABLET BY MOUTH DAILY. (AT LEAST 30 MIN PRIOR TO BREAKFAST OR OTHER MEDS) 90 Tablet 3 04/27/2021 Active documented as of this encounter (statuses as of 11/15/2021) Active Problems Problem Noted Date Hypothyroidism 02/04/2015 Overview: Per OB, tsh=2.5 during PPD positive 01/12/2013 Overview: quantiferon test negative on 06/04/2008. See scanned records. Immunization, BCG 01/02/2013 documented as of this encounter (statuses as of 11/15/2021) Immunizations Name Administration Dates Next Due COVID-19 mRNA, LNP-s, No Pre serve, 2-Dose Series ([employer]) 07/19/2020,06/28/2020 Seasonal Influenza, Quadriva lent, No Preserve, 6 Mons & Above, IM 01/16/2021,01/28/2020,01/26/2019, 0 18 Seasonal Influenza, Quadriva lent, No Preserve, IM 01/28/2020,01/26/2019,01/16/2015 TDAP (age 10 and older)(Boostrix) 10/21/2015 documented as of this encounter Social History Tobacco Use Types Packs/Day Years Used Date Never Smoker Smokeless Tobacco: Never Used Alcohol Use Standard Drinks/Week Comments No 0 [...] encounter Miscellaneous Notes * Telephone Encounter - Covid Results [facility] - 11/15/2021 10:33 PM EDT Outreach Attempts Nov 15 2021 9:05AM - Fail to reach patient IVR Message: Unsuccessful contact, no education provided documented in this encounter Plan of Treatment Upcoming Encounters Date Type Specialty Care Team Description 01/21/2022 Office Visit Family Medicine Claudia Morales MD [address] [place] [address] Health Maintenance Due Date Last Done Comments Diabetes Screening 1983 Depression Screening, Annual for Pts 12 and Over 09/16/2021 09/16/2020 Influenza Vaccine (FLU shot) (#1) 2021 01/16/2021, 01/28/2020, 01/28/2020, Additional history exists TSH FOR THYROID MEDICATION MONITORING YEARLY 04/06/2022 04/06/2021, 04/10/2020, 11/24/2018, Additional history exists PAP SMEAR-EVERY 3 YRS,AGES 21-65 04/06/2024 04/06/2021, 02/11/2016, 02/19/2014 DTaP,Tdap,and Td Vaccines (2 - Td or Tdap) 10/20/2025 10/21/2015, 10/21/2015 COVID-19 Vaccine Completed 02/26/2021, , 06/28/2020 GARDASIL-HPV IMMUNIZATION SERIES Aged Out No longer eligible based on patient's age to complete this topic Hepatitis B Aged Out No longer eligi ble based on patient's age to complete this topic MENINGOCOCCAL (MENACTRA/MENVEO) Aged Out No longer eligible based on patient's age to complete this topic Pneumococcal Vaccine: Pediatrics (0 to 5 Years) and At-Risk Patients (6 to 64 Years) Aged Out No longer eligible based on patient's age to complete this topic documented as of this encounter Implants Not on filedocumented as of this encounter Additional Health Concerns Infection Onset Date Last Indicated Resolved Time COVID-19 (confirmed) 11/11/2021 11/11/2021 documented as of this encounter Advance Directives Documents on File Type Date Recorded Patient Weld Technician Expl 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 Advanced Directive Advanced Directive Advanced Directive Advanced Directive Advanced Directive Advanced Directive Advanced Directive Advanced Directive Advanced Directive Advanced Directive Advanced Directive Advanced Directive Advanced Directive Advanced Directive Advanced Directive Advanced Directive Advanced Directive Advanced Directive Advanced Directive Advanced Directive Advanced Directive Advanced Directive Advanced Directive Care Teams Vest Busheler Relationship Specialty Start Date End Date Danny Thurston MD [address] [place] [address] [place] [address] PCP - General Family Medicine 11/11/21 documented as of this encounter
--- OUTSIDE RECORDS SUMMARY | 2022-12-23 01:43 | External Medical Summary | Summary of Care ---
Author Name Unknown Organization [place] [address] Care Team Providers Care Voice Intercept Technician Name Role Phone Danny Thurston MD Primary Care Provider [phone] Reason for Visit * Reason Onset Date Comments Medication Administration 02/01/2022 Flu an d/or Pneumo Inj Encounter Details Date Type Department Care Team Description 02/01/2022 Nurse Only Pediatrics [facility] [address] [place] [address] Gw, Flu Shot [facility] [address] [facility] [address] Medication Administration (Flu and/or Pneu... Allergies Active Allergy Reactions Severity Noted Date Comments Penicillins Diarrhea 02/04/2015 documented as of this encounter (statuses as of 02/01/2022) Medications Medication Sig Dispensed Refills Start Date End Date Status Levothyroxine Sodium 100 MCG Oral Tablet (Levoxyl)Indications :Hypothyroidism (at least 30 min prior to breakfast or other meds) 90 Tablet 3 01/04/2022 Active documented as of this encounter (statuses as of 02/01/2022) Active Problems Problem Noted Date Hypothyroidism 02/04/2015 Overview: Per OB, tsh=2.5 during PPD positive 01/12/2013 Overview: quantiferon test negative on 06/04/2008. See scanned records. Immunization, BCG 01/02/2013 documented as of this encounter (statuses as of 02/01/2022) Immunizations Name Administration Dates Next Due COVID-19 [...] on file documented as of this encounter Patient Instructions * Patient Instructions* Rosanna Lopez RN - 02/01/2022 1:25 PM EDT ~~PATIENT INSTRUCTIONS FOR FLU SHOT~~ [...] documented in this encounter Progress Notes * Rosanna Lopez RN - 02/01/2022 1:25 PM EDT PRE - ADMINISTRATION DOCUMENTATION Are you experiencing any cold symptoms or fever? No Have you had Guillain-Uriah Syndrome (an illness that causes paralysis) within the last 6 weeks? No Have you had the flu shot in the past? YES Have you ever had a reaction to the flu shot? No Rosanna Lopez RN, 02/01/2022 1:25 PM Immunization Administration Documentation Time Out Procedure Performed: Yes Patient Identified (Ask Name/Date of ): Yes Does the patient have a fever greater than 101 degrees today? No Patient allergic to latex? No VFC Stock: No Immunization(s) verified: Yes, Immunization Name: Flu, VIS Sheet(s) given: Yes Verified Side and Site: Yes Verified Shot(s) with Parent(s)/Patient: Yes documented in this encounter Plan of Treatment Upcoming Encounters Date Type Specialty Care Team Description 03/25/2022 Office Visit Family Medicine Claudia Morales MD [address] [address] Health Maintenance Due Date Last Done Comments Diabetes Screening 1983 HIV Screening 10/22/1998 Hepatitis C Screening 10/22/2001 COVID-19 Vaccine (4 - Booster for Pfizer series) 04/23/2021 02/26/2021, 07/19/2020, 06/28/2020 Depression Screening, Annual for Pts 12 and Over 09/16/2021 09/16/2020 Influenza Vaccine (FLU shot) (#1) 2021 02/01/2022, 01/16/2021, 01/28/2020, Additional history exists TSH FOR THYROID [...] as of this encounter Visit Diagnoses Diagnosis Need for prophylactic vaccination and inoculation against influenza- Primary documented in this encounter Advance Directives Documents on File Type Date Recorded Patient Supervisor Heading Expl 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 Advanced Directive Advanced Directive Advanced Directive Advanced Directive Advanced Directive Advanced Directive Advanced Directive Advanced Directive Advanced Directive Advanced Directive Advanced Directive Advanced Directive Advanced Directive Advanced Directive Advanced Directive Advanced Directive Advanced Directive Advanced Directive Advanced Directive Advanced Directive Advanced Directive Advanced Directive Advanced Directive Advanced Directive Advanced Directive Care Teams Voice Intercept Technician Relationship Specialty Start Date End Date Danny Thurston MD [address] [facility] [place] [address] PCP - General Family Medicine 11/11/21 documented as of this encounter
--- OUTSIDE RECORDS SUMMARY | 2022-12-23 01:43 | External Medical Summary | Summary of Care ---
Author Name Unknown Organization [place] [address] Care Team Providers Care Retaining Room Cutter Name Role Phone Danny Thurston MD Primary Care Provider [phone] Encounter Details Date Type Department Care Team Description 11/12/2021 Telephone Family Practice [facility] [address] Claudia Morales MD [address] [facility] [place] [address] Allergies Active Allergy Reactions Severity Noted Date Comments Penicillins Diarrhea 02/04/2015 documented as of this encounter (statuses as of 11/12/2021) Medications Medication Sig Dispensed Refills Start Date End Date Status Levothyroxine Sodium 100 MCG Oral Tablet (Levoxyl)Indications :Hypothyroidism TAKE 1 TABLET BY MOUTH DAILY. (AT LEAST 30 MIN PRIOR TO BREAKFAST OR OTHER MEDS) 90 Tablet 3 04/27/2021 Active documented as of this encounter (statuses as of 11/12/2021) Active Problems Problem Noted Date Hypothyroidism 02/04/2015 Overview: Per OB, tsh=2.5 during PPD positive 01/12/2013 Overview: quantiferon test negative on 06/04/2008. See scanned records. Immunization, BCG 01/02/2013 documented as of this encounter (statuses as of 11/12/2021) Immunizations Name Administration Dates Next Due COVID-19 mRNA, LNP-s, No Pre serve, 2-Dose Series ([employer]) 07/19/2020,06/28/2020 Seasonal Influenza, Quadriva lent, No Preserve, [...] Encounters Date Type Specialty Care Team Description 04/07/2022 Office Visit Family Medicine Fanny Salmeron CRNP [address] [facility] [place] [address] Health Maintenance Due Date Last Done Comments [...] Documents on File Type Date Recorded Patient Camera Operator Expl 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 Advanced Directive Advanced Directive Advanced Directive Advanced Directive Advanced Directive Advanced Directive Advanced Directive Advanced Directive Advanced Directive Advanced Directive Advanced Directive Advanced Directive Advanced Directive Advanced Directive Advanced Directive Advanced Directive Advanced Directive Advanced Directive Advanced Directive Advanced Directive Advanced Directive Advanced Directive Care Teams Retaining Room Cutter Relationship Specialty Start Date End Date Danny Thurston MD [address] [place] [address] PCP - General Family Medicine 11/11/21 documented as of this encounter
--- OUTSIDE RECORDS SUMMARY | 2022-12-23 01:43 | External Medical Summary | Summary of Care ---
Author Name Unknown Organization [place] [address] Care Team Providers Care 2Nd Grade Teacher Name Role Phone Claudia Morales MD Primary Care Provider Reason for Visit * Reason Comments NEW PATIENT Cpe, get established . Switching from Karena Encounter Details Date Type Department Care Team Description 03/25/2022 Office Visit Family Practice [facility] [address] [facility] [place] [address] Claudia Morales MD [facility] [address] Well adult exam*; Screening cholesterol level; Screening for diabetes mellitus; Acquired hypothyroidism Allergies Active Allergy Reactions Severity Noted Date Comments Penicillins Diarrhea 02/04/2015 documented as of this encounter (statuses as of 03/25/2022) Medications Medication Sig Dispensed Refills Start Date End Date Status Levothyroxine Sodium 100 MCG Oral Tablet (Levoxyl)Indications :Acquired hypothyroidism (at least 30 min prior to breakfast or other meds) 90 Tablet 3 03/25/2022 Active Levothyroxine Sodium 100 MCG Oral Tablet (Levoxyl)Indications :Hypothyroidism (at least 30 min prior to breakfast or other meds) 90 Tablet 3 01/04/2022 2 Discontinue d(Refill) documented as of this encounter (statuses as of 03/25/2022) Active Problems Problem Noted Date COVID-19 03/25/2022 Hypothyroidism 02/04/2015 Overview: Per OB, tsh=2.5 during PPD positive 01/12/2013 Overview: quantiferon test negative on 06/04/2008. See scanned records. Immunization, BCG 01/02/2013 documented as of this encounter (statuses as of 03/25/2022) Immunizations Name Administration Dates Next Due COVID-19 [...] Date Smoking Tobacco: Never Smokeless Tobacco: Never Tobacco Cessation:Counseling Given: Not Answered Alcohol Use Standard Drinks/Week Comments No 0 [...] Sign Reading Time Taken Comments Blood Pressure 124/80 03/25/2022 12:59 PM EST Pulse 80 03/25/2022 12:59 PM EST Temperature - - Respiratory Rate - - Oxygen Saturation - - Inhaled Oxygen Concentration - - Weight 75.8 kg (167 lb 2 oz) 03/25/2022 12:59 PM EST Height - - Body Mass Index 26.97 04/06/2021 1:17 PM EST documented in this encounter Progress Notes * Claudia Morales MD - 03/25/2022 1:11 PM EST Images from the original note were not included. History of Present Illness Michael Orellana is a 36 year old female that presents for NEW PATIENT (Cpe, get established. Switching from [facility]) HPI Thyroid: Not feeling hypothyroid/hyperthyroid. COVID: In October, back to normal. 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 Exercise: running 6 days/wk, at least one long run. No cross training. Runs half-marathons often. No injuries. Eating: fruits and veggies daily. Eats meat. Sensitive to dairy. Some plant- based dairy products. Sleeping okay. Some struggles with anxiety, sees Guillermina Rouse weekly. Was on meds. medication and allergy list reviewed Past medical, surgical, family and social histories reviewed. ROS: No lightheadedness/dizziness. No vision/hearing problems Just had oral surgery, went well No chest pain/palpitations No dyspnea No heartburn, constipation/diarrhea. No changing moles or rashes. Physical Exam Vitals: 03/25/22 1259 Pulse: 80 BP: 124/80 BP Readings from Last 3 Encounters: 03/25/22 124/80 11/11/21 150/86 04/06/21 120/80 Wt Readings from Last 3 Encounters: 03/25/22 75.8 kg (167 lb 2 oz) 04/06/21 78.5 kg (173 lb) 01/16/21 74.4 kg (164 lb) Physical Exam Vitals and nursing note reviewed. Constitutional: General: She is not in acute distress. Appearance: Normal appearance. She is not ill-appearing. HENT: Head: Normocephalic and atraumatic. Right Ear: Tympanic membrane, ear canal and external ear normal. There is no impacted cerumen. Left Ear: Tympanic membrane, ear canal and external ear normal. There is no impacted cerumen. Nose: Nose normal. Mouth/Throat: Mouth: Mucous membranes are moist. Pharynx: Oropharynx is clear. Eyes: General: No scleral icterus. Conjunctiva/sclera: Conjunctivae normal. Pupils: Pupils are equal, round, and reactive to light. Neck: Thyroid: No thyroid mass, thyromegaly or thyroid tenderness. Cardiovascular: Rate and Rhythm: Normal rate and regular rhythm. Heart sounds: No murmur heard. Pulmonary: Effort: Pulmonary effort is normal. Breath sounds: Normal breath sounds. Lymphadenopathy: Cervical: No cervical adenopathy. Skin: General: Skin is warm and dry. Neurological: Mental Status: She is alert. Psychiatric: Mood and Affect: Mood normal. Behavior: Behavior normal. I have reviewed the following results: Pap smear 03/2021 and TSH Assessment and Plan Well adult exam Age appropriate preventative measures addressed. Healthy diet and physical movement addressed. Screening cholesterol level - LIPID PANEL WITH DIRECT LDL IF TG IS HIGH; Future Screening for diabetes mellitus - GLUCOSE Acquired hypothyroidism Clinically euthyroid, due for 1 year lab - TSH WITH FREE T4 IF INDICATED; Future - Levothyroxine Sodium 100 MCG Oral Tablet (Levoxyl); (at least 30 min prior to breakfast or other meds) Wrap-Up Follow Up: Return in about 1 year (around 03/25/2023) for Fasting Labs Soon, Return with Andrew. | For: Fasting Labs Soon, Return with Andrew Time: I spent a total of 20-29 minutes (exact time 22 mins) on the date of service in preparation, delivery, and documentation of the care provided to Michael Orellana excluding any time spent in the performance of separately billed services. documented in this encounter Plan of Treatment Upcoming Encounters Date Type Specialty Care Team Description 03/28/2023 Office Visit Family Medicine Claudia Morales MD [address] [place] [address] [place] [address] Scheduled Orders Name Type Priority Associated Diagnoses Orde r Schedule LIPID PANEL WITH DIRECT LDL IF TG IS HIGH Lab Routine Screening cholesterol level Expected: 03/25/2022, Expires: 03/25/2023 GLUCOSE Lab Routine Screening for diabetes mellitus Ordered: 03/25/2022 TSH WITH FREE T4 IF INDICATED Lab Routine Acquired hypothyroidism Expected: 03/25/2022, Expires: 03/25/2023 Health Maintenance Due Date Last Done Comments [...] as of this encounter Visit Diagnoses Diagnosis Well adult exam- Primary Routine general medical examination at a health care facility Screening cholesterol level Screening for lipoid disorders Screening for diabetes mellitus Acquired hypothyroidism Unspecified hypothyroidism documented in this encounter Care Teams 2Nd Grade Teacher Relationship Specialty Start Date End Date Claudia Morales MD [address] [place] [address] PCP - General Internal Medicine 03/25/22 documented as of this encounter"
--- OUTSIDE RECORDS SUMMARY | 2022-12-23 01:43 | External Medical Summary | Summary of Care ---
Author Name Unknown Organization [place] [address] Care Team Providers Care Entry Engineer Name Role Phone Unavailable Primary Care Provider Unavailabl e Reason for Visit * Reason Comments PAP Pt here for pap toda y, has no other issues Encounter Details Date Type Department Care Team Description 04/06/2021 Office Visit Family Practice [facility] 132 [facility] [place] [address] Shannon Huang PA-C [facility] [place] [address] Pap smear for cervical cancer screening*; Acquired hypothyroidism Allergies Active Allergy Reactions Severity Noted Date Comments Penicillins Diarrhea 02/04/2015 documented as of this encounter (statuses as of 04/06/2021) Medications Medication Sig Dispensed Refills Start Date End Date Status Levothyroxine Sodium 100 MCG Oral Tablet (LEVOXYL)Indications: Hypothyroidism TAKE 1 TABLET BY MOUTH DAILY. (AT LEAST 30 MIN PRIOR TO BREAKFAST OR OTHER MEDS) 30 Tab 11 04/10/2020 Active documented as of this encounter (statuses as of 04/06/2021) Active Problems Problem Noted Date Hypothyroidism 02/04/2015 Overview: Per OB, tsh=2.5 during PPD positive 01/12/2013 Overview: quantiferon test negative on 06/04/2008. See scanned records. Immunization, BCG 01/02/2013 documented as of this encounter (statuses as of 04/06/2021) Immunizations Name Administration Dates Next Due COVID-19 [...] Sign Reading Time Taken Comments Blood Pressure 120/80 04/06/2021 1:17 PM EST Pulse 48 04/06/2021 1:17 PM EST Temperature 36.8 C (98.3 F) 04/06/2021 1:17 PM ES T Respiratory Rate 16 04/06/2021 1:17 PM EST Oxygen Saturation - - Inhaled Oxygen Concentration - - Weight 78.5 kg (173 lb) 04/06/2021 1:17 PM EST Height 167.6 cm (5' 6") 04/06/2021 1:17 PM EST Body Mass Index 27.92 04/06/2021 1:17 PM EST documented in this encounter Progress Notes * Shannon Huang PA-C - 04/06/2021 1:33 PM EST HPI: Michael Orellana is a 35 year old female who presents to clinic for Pap smear. Menses regular. Overall doing well. No acute complaints to discuss. Due for thyroid labs. ROS: See HPI for positives and negatives. [...] BREAKFAST OR OTHER MEDS) 30 Tab 11 No current facility-administered medications for this visit. Nursing Notes: Tiffanie Lopez LPN 04/06/21 1319 Signed Chief Complaint Patient presents with PAP Pt here for pap today, has no other issues EXAM: BP 120/80 | Pulse 48 | Temp 36.8 C (98.3 F) (Tympanic) | Resp 16 | Ht 1.676 m (5' 6") | Wt 78.5kg (173 lb) | BMI 27.92 kg/m | BSA 1.91 m General: Patient is a 35-year-old female who is awake alert and oriented x3. Patient is well appearing and in no acute distress. Skin: No rashes. HEENT: Head is atraumatic, normocephalic. PERRLA. Sclerae anicteric. Mask present. Neck is supple. Cardiopulmonary: Regular rate and effort of breathing. Abdomen: Soft, nondistended. Extremities: Well perfused. No peripheral edema. Neuro: Normal gait. Psych: Appropriate mood and affect. Pelvic: Tiffanie Lopez LPN heart doctor. Normal external genitalia; no lesions noted. Vaginal thompson pink and moist. Cervix easily identified. No lesions, discharge, or bleeding noted. Uterus is small. No adnexal masses or tenderness. ASSESSMENT/PLAN Pap smear for cervical cancer screening (Primary) - PAP SCREEN Acquired hypothyroidism - TSH WITH FREE T4 IF INDICATED; Future; Expected date: 04/06/2021 Follow Up: Return in about 1 year (around 04/06/2022) for Return with Physician. | For: Return withPhysician | Check-out note: Est care with PCP, CPE There are no Patient Instructions on file for this visit. Shannon Huang PA-C Family [facility] [address] [place] [address] This chart was completed in part utilizing iLogon Speech Voice Recognition Software. Grammatical errors, random word insertions, prounoun errors, and incomplete sentences are an occasional consequence of this system due to software limitations, ambient noise, and hardware issues. Any formal questions or concerns about the content, text, or information contained within the body of this dictation should be directly addressed to the provider for clarification. documented in this encounter Nursing Notes * Tiffanie Lopez LPN - 04/06/2021 1:17 PM EST Chief Complaint Patient presents with PAP Pt here for pap today, has no other issues documented in this encounter Plan of Treatment Upcoming Encounters Date Type Specialty Care Team Description 04/06/2021 Laboratory [facility] [address] [place] [address] Acquired hypothyroidism 09/29/2021 Office Visit Dermatology Sue Abraham PA-C [address] [place] [address] 04/07/2022 Office Visit Family Medicine Shannon Huang PA-C 132 [facility] [place] [address] Pending Results Name Type Priority Associated Diagnoses Date /Time TSH WITH FREE T4 IF INDICATED Lab Routine Acquired hypothyroidism 04/06/2021 1:43 PM EST Scheduled Orders Name Type Priority Associated Diagnoses Orde r Schedule TSH WITH FREE T4 IF INDICATED Lab Routine Acquired hypothyroidism Expected: 04/06/2021 (Approximate), Expires: 04/06/2022 PAP SCREEN Pathology Routine Pap smear for cervical cancer screening Ordered: 04/06/2021 Health Maintenance Due Date Last Done Comments PAP SMEAR-EVERY 3 YRS,AGES 21-65 02/10/2019 02/11/2016, 02/19/2014 DTaP,Tdap,and Td Vaccines (2 - Td or Tdap) 10/20/2025 10/21/2015 Influenza Vaccine (FLU shot) Completed , 01/28/2020, 01/28/2020, Additional history exists COVID-19 Vaccine Completed 02/26/2021, , 06/28/2020 MENINGOCOCCAL (MENACTRA/MENVEO) Aged Out No longer eligible based on patient's age to complete this topic Pneumococcal Vaccine: Pediatrics (0 to 5 Years) and At-Risk Patients (6 to 64 Years) Aged Out No longer eligible based on patient's age to complete this topic documented as of this encounter Implants Not on filedocumented as of this encounter Visit Diagnoses Diagnosis Pap smear for cervical cancer screening- Primary Screening for malignant neoplasm of the cervix Acquired hypothyroidism Unspecified hypothyroidism Acquired hypothyroidism Unspecified hypothyroidism documented in this encounter Advance Directives Documents on File Type Date Recorded Patient Enthone Solder Stripper Expl 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 Advanced Directive Advanced Directive Advanced Directive Advanced Directive Advanced Directive Advanced Directive Advanced Directive Advanced Directive Advanced Directive Advanced Directive Advanced Directive Advanced Directive Advanced Directive Advanced Directive Advanced Directive Advanced Directive Advanced Directive Advanced Directive Advanced Directive Advanced Directive
--- OUTSIDE RECORDS SUMMARY | 2022-12-23 01:43 | External Medical Summary | Summary of Care ---
Author Name Unknown Organization [place] [address] Care Team Providers Care Garment Mender Name Role Phone Unavailable Primary Care Provider Unavailabl e Reason for Visit * Reason Comments Follow Up Encounter Details Date Type Department Care Team Description 12/15/2020 Office Visit Ophthalmology, [facility] [address] [place] [address] Cam Worley, DO [address] [place] [address] Meibomian gland dysfunction (MGD) of both eyes*; Rosacea Allergies Active Allergy Reactions Severity Noted Date Comments Penicillins Diarrhea 02/04/2015 documented as of this encounter (statuses as of 12/15/2020) Medications Medication Sig Dispensed Refills Start Date End Date Status Levothyroxine Sodium 100 MCG Oral Tablet (LEVOXYL)Indications: Hypothyroidism TAKE 1 TABLET BY MOUTH DAILY. (AT LEAST 30 MIN PRIOR TO BREAKFAST OR OTHER MEDS) 30 Tab 11 04/10/2020 Active documented as of this encounter (statuses as of 12/15/2020) Active Problems Problem Noted Date Hypothyroidism 02/04/2015 Overview: Per OB, tsh=2.5 during PPD positive 01/12/2013 Overview: quantiferon test negative on 06/04/2008. See scanned records. Immunization, BCG 01/02/2013 documented as of this encounter (statuses as of 12/15/2020) Immunizations Name Administration Dates Next Due COVID-19 mRNA, LNP-s, No Pre serve, 2-Dose Series (Pfizer) 07/19/2020,06/28/2020 Seasonal Influenza, Quadriva lent, No Preserve, 6 Mons & Above, IM 01/28/2020,01/26/2019,02/26/2018 Seasonal Influenza, Quadriva lent, No Preserve, IM [...] on file documented as of this encounter Progress Notes * Cam Worley, - 12/15/2020 12:32 PM EDT Michael Orellana is a 34 year old female who returns for eyelid evaluation. Pt rpeorts recurrent styes OU and treated with compresses oral abx and tobradex with improvement frustrated. MGD and rosacea noted. Lid hygiene in use. OFF DOXY tolerated well Ophthalmology Past History: contact lenses Ophthalmology Family History: none Ophthalmology ROS: Positive for stye OU and no recent significant change in vision,no eye pain, redness, discharge,no diplopia Current Ophthalmic Medications:\lid hygiene EXAM: Base Eye Exam Visual Acuity (Snellen - Linear) Right Left Dist cc 20/20 20/20 Correction: Contacts Slit Lamp and Fundus Exam External Exam Right Left External Rosacea Rosacea Slit Lamp Exam Right Left Lids/Lashes 1+ Meibomian gland dysfunction 1+ Meibomian gland dysfunction Conjunctiva/Sclera White and quiet White and quiet Cornea Clear Clear Anterior Chamber Deep and quiet Deep and quiet Iris Round and reactive Round and reactive Lens Clear Clear IMPRESSION: 1. rosacea and MGD with stye recurrences tolerating doxy lid hygiene improvement noted PLAN: 1. reassurance 2. Daily lid hygiene 3. PRN return Cma Worley DO documented in this encounter Nursing Notes * Simi Rosas TECH - 12/15/2020 11:30 AM EDT Michael Orellana is a 35 year old female who presents for follow up. Last Office/Telemedicine Visit: 11/03/2020 She currently states that she is doing much better. Are you diabetic? No Current Ophthalmic Medications: None Patient's name preference 'Akilah' Do you have Thyroid Disease? yes Did not dilate. documented in this encounter Plan of Treatment Upcoming Encounters Date Type Specialty Care Team Description 09/29/2021 Office Visit Dermatology Sue Abraham PA-C [address] [place], [place] [id number] Health Maintenance Due Date Last Done Comments PAP SMEAR-EVERY 3 YRS,AGES 21-65 02/10/2019 02/11/2016, 02/19/2014 Influenza Vaccine (FLU shot) (#1) 2020 01/28/2020, 01/28/2020, 01/26/2019, Additional history exists DTaP,Tdap,and Td Vaccines (2 - Td) 10/20/2025 10/21/2015 COVID-19 Vaccine Completed 07/19/2020, 06/28/2020 MENINGOCOCCAL (MENACTRA/MENVEO) Aged Out No longer eligible based on patient's age to complete this topic Pneumococcal Vaccine: Pediatrics (0 to 5 Years) and At-Risk Patients (6 to 64 Years) Aged Out No longer eligible based on patient's age to complete this topic documented as of this encounter Implants Not on filedocumented as of this encounter Visit Diagnoses Diagnosis Meibomian gland dysfunction (MGD) of both eyes- Primary Rosacea documented in this encounter Advance Directives Documents on File Type Date Recorded Patient Registered Nurse Maternity Expl 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 Advanced Directive Advanced Directive Advanced Directive Advanced Directive Advanced Directive Advanced Directive Advanced Directive Advanced Directive Advanced Directive Advanced Directive Advanced Directive Advanced Directive Advanced Directive Advanced Directive Advanced Directive Advanced Directive
--- OUTSIDE RECORDS SUMMARY | 2022-12-23 01:43 | External Medical Summary ---
Author Name Unknown Address Unknown Organization K01:[facility] - [address] [place] [address] Laboratory Report Ordering Provider Test Date Status ALICIAANURAG DAMON 11/11/2021 12:59:01 Final Observation Date Value Abnormality Reference (Units ) Status SARS Coronavirus 2 11/11/2021 12:59:01 Positive Abnormal N egative Final Performing Location [facility] - [address] [place] [address]
--- OUTSIDE RECORDS SUMMARY | 2022-12-23 01:43 | External Medical Summary | Summary of Care ---
Author Name Unknown Organization [place] [address] Care Team Providers Care Field Pipe Lines Supervisor Name Role Phone Danny Thurston MD Primary Care Provider [phone] Reason for Visit * Reason Onset Date Comments COVID-19 Screening 11/14/2021 Encounter Details Date Type Department Care Team Description 11/14/2021 Telephone COVID19 Screening [facility] DEPT CLOSED 02/03/21 [address] [place] [id number], Automated Provider COVID-19 Screening Allergies Active Allergy Reactions Severity Noted Date Comments Penicillins Diarrhea 02/04/2015 documented as of this encounter (statuses as of 11/14/2021) Medications Medication Sig Dispensed Refills Start Date End Date Status Levothyroxine Sodium 100 MCG Oral Tablet (Levoxyl)Indications :Hypothyroidism TAKE 1 TABLET BY MOUTH DAILY. (AT LEAST 30 MIN PRIOR TO BREAKFAST OR OTHER MEDS) 90 Tablet 3 04/27/2021 Active documented as of this encounter (statuses as of 11/14/2021) Active Problems Problem Noted Date Hypothyroidism 02/04/2015 Overview: Per OB, tsh=2.5 during PPD positive 01/12/2013 Overview: quantiferon test negative on 06/04/2008. See scanned records. Immunization, BCG 01/02/2013 documented as of this encounter (statuses as of 11/14/2021) Immunizations Name Administration Dates Next Due COVID-19 mRNA, LNP-s, No Pre serve, 2-Dose Series (Xtract) 07/19/2020,06/28/2020 Seasonal Influenza, Quadriva lent, No Preserve, [...] Notes * Telephone Encounter - Covid Results [facility] - 11/14/2021 10:59 PM EDT Outreach Attempts Nov 14 2021 9:02AM - Fail to reach patient IVR Message: Unsuccessful contact, no education provided documented in this encounter Plan of Treatment Upcoming Encounters Date Type Specialty Care Team Description 01/21/2022 Office Visit Family Medicine Claudia Morales MD [address] [place] [address] Health Maintenance Due Date Last Done Comments [...] Documents on File Type Date Recorded Patient Customer Experience Consultant Expl 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 Advanced Directive Advanced Directive Advanced Directive Advanced Directive Advanced Directive Advanced Directive Advanced Directive Advanced Directive Advanced Directive Advanced Directive Advanced Directive Advanced Directive Advanced Directive Advanced Directive Advanced Directive Advanced Directive Advanced Directive Advanced Directive Advanced Directive Advanced Directive Advanced Directive Advanced Directive Advanced Directive Care Teams Field Pipe Lines Supervisor Relationship Specialty Start Date End Date Danny Thurston MD [address] [place] [address] [place] [address] PCP - General Family Medicine 11/11/21 documented as of this encounter
--- OUTSIDE RECORDS SUMMARY | 2022-12-23 01:43 | External Medical Summary | Summary of Care ---
Author Name Unknown Organization [place] [address] Care Team Providers Care Cargo Worker Name Role Phone Danny Thurston MD Primary Care Provider [phone] Reason for Visit * Reason Onset Date Comments Test Results 11/12/2021 COVID Encounter Details Date Type Department Care Team Description 11/12/2021 Telephone Careworks [facility] [address] [place] [address] Elaine Hoffman PA-C [address] [place] [address] Test Results (COVID) Allergies Active Allergy Reactions Severity Noted Date [...] encounter Miscellaneous Notes * Telephone Encounter - Elaine Hoffman PA-C - 11/12/2021 9:52 AM EDT See MyG. COVID pos. documented in this encounter Plan of Treatment Upcoming Encounters Date Type Specialty Care Team Description 04/07/2022 Office Visit Family Medicine Fanny Salmeron CRNP [address] [place] [address] Health Maintenance Due Date Last Done [...] Documents on File Type Date Recorded Patient Track Patrol Expl 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 Advanced Directive Advanced Directive Advanced Directive Advanced Directive Advanced Directive Advanced Directive Advanced Directive Advanced Directive Advanced Directive Advanced Directive Advanced Directive Advanced Directive Advanced Directive Advanced Directive Advanced Directive Advanced Directive Advanced Directive Advanced Directive Advanced Directive Advanced Directive Advanced Directive Advanced Directive Care Teams Cargo Worker Relationship Specialty Start Date End Date Danny Thurston MD [address] [place] [address] PCP - General Family Medicine 11/11/21 documented as of this encounter
--- OUTSIDE RECORDS SUMMARY | 2022-12-23 01:43 | External Medical Summary | Summary of Care ---
Author Name Unknown Organization [place] [address] Care Team Providers Care Information Assoc Name Role Phone Danny Thurston MD Primary Care Provider [phone] Reason for Visit * Reason Onset Date Comments Medication Refill 02/01/2022 Medication Refill 02/04/2022 Encounter Details Date Type Department Care Team Description 02/01/2022 Refill Family Practice [facility] [address] [place] [address] Danny Thurston MD [address] [place] [address] Hypothyroidism Allergies Active Allergy Reactions Severity Noted Date Comments Penicillins Diarrhea 02/04/2015 documented as of this encounter (statuses as of 02/04/2022) Medications Medication Sig Dispensed Refills Start Date End Date Status Levothyroxine Sodium 100 MCG Oral Tablet (Levoxyl)Indications :Hypothyroidism (at least 30 min prior to breakfast or other meds) 90 Tablet 3 01/04/2022 Active documented as of this encounter (statuses as of 02/04/2022) Active Problems Problem Noted Date Hypothyroidism 02/04/2015 Overview: Per OB, tsh=2.5 during PPD positive 01/12/2013 Overview: quantiferon test negative on 06/04/2008. See scanned records. Immunization, BCG 01/02/2013 documented as of this encounter (statuses as of 02/04/2022) Immunizations Name Administration Dates Next Due COVID-19 [...] encounter Miscellaneous Notes * Telephone Encounter - LORELEI Daniel - 02/04/2022 8:42 AM EDT There are refills at pharmacy already. * Telephone Encounter - NEELA Cantu - 02/01/2022 4:09 PM EDT Did you pend patient's preferred pharmacy and medication before forwarding?yes Pharmacy: [id number] [address] Pending Prescriptions: Disp Refills Levothyroxine Sodium 100 MCG Oral Tablet *90 Tab*3 Sig: (at least 30 min prior to breakfast or other meds) Last Visit: 04/06/2021 (in office), Visit date not found (telemedicine) Next Visit: 03/25/2022 If no future appointments scheduled, and last appointment is greater than a year ago, please schedule patient for a follow-up appointment Last date the medication was ordered: 01.04.22 Is this request for a controlled substance?No Urine Drug Screen:No results found for this or any previous visit. Patient Phone Numbers Labs: Lab Results Component Value Date/Time TSH 1.14 04/06/2021 01:43 PM TSH 0.55 04/10/2020 02:18 PM documented in this encounter Plan of Treatment Upcoming Encounters Date Type Specialty Care Team Description 03/25/2022 Office Visit Family Medicine Claudia Morales MD [address] [place] [address] Health Maintenance Due Date Last Done Comments [...] as of this encounter Visit Diagnoses Diagnosis Hypothyroidism Unspecified hypothyroidism documented in this encounter Advance Directives Documents on File Type Date Recorded Patient Power Plant Operations Manager Expl 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 Advanced Directive Advanced Directive Advanced Directive Advanced Directive Advanced Directive Advanced Directive Advanced Directive Advanced Directive Advanced Directive Advanced Directive Advanced Directive Advanced Directive Advanced Directive Advanced Directive Advanced Directive Advanced Directive Advanced Directive Advanced Directive Advanced Directive Advanced Directive Advanced Directive Advanced Directive Advanced Directive Advanced Directive Advanced Directive Care Teams Information Assoc Relationship Specialty Start Date End Date Danny Thurston MD [address] [place] [address] PCP - General Family Medicine 11/11/21 documented as of this encounter
--- OUTSIDE RECORDS SUMMARY | 2022-12-23 01:43 | External Medical Summary | Summary of Care ---
Author Name Unknown Organization [place] [address] Care Team Providers Care Esters And Emulsifiers Supervisor Name Role Phone Danny Thurston MD Primary Care Provider [phone] Encounter Details Date Type Department Care Team Description 11/11/2021 Scan Encounter Family Practice [facility] [address] [facility] [address] Danny Thurston MD [address] [place] [address] <No scans attached> Allergies Active Allergy Reactions Severity Noted Date Comments Penicillins Diarrhea 02/04/2015 documented as of this encounter (statuses as of 11/13/2021) Medications Medication Sig Dispensed Refills Start Date End Date Status Levothyroxine Sodium 100 MCG Oral Tablet (Levoxyl)Indications :Hypothyroidism TAKE 1 TABLET BY MOUTH DAILY. (AT LEAST 30 MIN PRIOR TO BREAKFAST OR OTHER MEDS) 90 Tablet 3 04/27/2021 Active documented as of this encounter (statuses as of 11/13/2021) Active Problems Problem Noted Date Hypothyroidism 02/04/2015 Overview: Per OB, tsh=2.5 during PPD positive 01/12/2013 Overview: quantiferon test negative on 06/04/2008. See scanned records. Immunization, BCG 01/02/2013 documented as of this encounter (statuses as of 11/13/2021) Immunizations Name Administration Dates Next Due COVID-19 [...] Medicine Claudia Morales MD [address] [place] [address] Health Maintenance Due Date Last Done Comments [...] Documents on File Type Date Recorded Patient Cut Plug Packer Expl 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 Advanced Directive Advanced Directive Advanced Directive Advanced Directive Advanced Directive Advanced Directive Advanced Directive Advanced Directive Advanced Directive Advanced Directive Advanced Directive Advanced Directive Advanced Directive Advanced Directive Advanced Directive Advanced Directive Advanced Directive Advanced Directive Advanced Directive Advanced Directive Advanced Directive Advanced Directive Advanced Directive Care Teams Esters And Emulsifiers Supervisor Relationship Specialty Start Date End Date Danny Thurston MD [address] [facility] [place] [address] PCP - General Family Medicine 11/11/21 documented as of this encounter
--- OUTSIDE RECORDS SUMMARY | 2022-12-23 01:43 | External Medical Summary ---
Author Name Unknown Address Unknown Organization K01:[facility] [place] [address] [place] [address] Laboratory Report Ordering Provider Test Date Status ALISON ARANGO 04/06/2021 13:43:04 Final Observation Date Value Abnormality Reference (Units ) Status TSH 04/06/2021 13:43:04 1.14 0.27-4.20 (uIU/mL) Final Performing Location [facility] [place] [address] [place] [address]
--- OUTSIDE RECORDS SUMMARY | 2022-12-23 01:43 | External Medical Summary | Summary of Care ---
Author Name Unknown Organization [place] [address] Care Team Providers Care Covering Machine Operator Helper Name Role Phone Danny Thurston MD Primary Care Provider [phone] Reason for Visit * Reason Comments Headache Fever Encounter Details Date Type Department Care Team Description 11/11/2021 Convenient Care Visit [facility] [address], [place] [id number] Leticia Prakash PA-Cyrus [address] [place] [address] Nausea*; Fever, unspecified fever cause; Viral URI; Tension headache Allergies Active Allergy Reactions Severity Noted Date Comments Penicillins Diarrhea 02/04/2015 documented as of this encounter (statuses as of 11/11/2021) Medications Medication Sig Dispensed Refills Start Date End Date Status Levothyroxine Sodium 100 MCG Oral Tablet (Levoxyl)Indications :Hypothyroidism TAKE 1 TABLET BY MOUTH DAILY. (AT LEAST 30 MIN PRIOR TO BREAKFAST OR OTHER MEDS) 90 Tablet 3 04/27/2021 Active Hospital, Clinic, or Other Facility Administered Medication Ordered Dose Route Frequency Start Date End Date Status ondansetron (Zofran) tab 4 mgIndications:Nausea 4 mg OR ONCE 11/11/2021 11/12/2021 Acti ve Acetaminophen (Tylenol) tab 650 mgIndications:Fever, unspecified fever cause 650 mg OR ONCE 11/11/2021 11/12/2021 A ctive documented as of this encounter (statuses as of 11/11/2021) Active Problems Problem Noted Date Hypothyroidism 02/04/2015 Overview: Per OB, tsh=2.5 during PPD positive 01/12/2013 Overview: quantiferon test negative on 06/04/2008. See scanned records. Immunization, BCG 01/02/2013 documented as of this encounter (statuses as of 11/11/2021) Immunizations Name Administration Dates Next Due COVID-19 [...] Sign Reading Time Taken Comments Blood Pressure 150/86 11/11/2021 11:58 AM EDT Pulse 78 11/11/2021 11:58 AM EDT Temperature 39.4 C (102.9 F) 11/11/2021 1:14 PM E DT Respiratory Rate 16 11/11/2021 11:58 AM EDT Oxygen Saturation 100% 11/11/2021 11:58 AM EDT Inhaled Oxygen Concentration - - Weight - - Height - - Body Mass Index - - documented in this encounter Progress Notes * Leticia Prakash PA-C - 11/11/2021 12:31 PM EDT Images from the original note were not included. History of Present Illness Michael Orellana is a 36 year old female that presents for No chief complaint on file. HPI Symptom Onset - 1 day Presenting Symptoms- did have exposure to COVID 19, her is postive . States last night developed fever, chills, headache. States has history of migraines. took triptan she had at home and ibuprofen. States does have some nausea. No vomiting. Does have fever. States head pain is severe /. Describes as pressure. Denies changes in vision, dizziness, syncope, injury to head. Took at home covid 19 test which was negative. Physical Exam Vitals: 11/11/21 1158 11/11/21 1314 Temp: (!) 38.3 C (100.9 F) (!) 39.4 C (102.9 F) Pulse: 78 Resp: 16 SpO2: 100% BP: 150/86 Physical Exam Constitutional: General: She is not in acute distress. Appearance: Normal appearance. She is not ill-appearing. HENT: Head: Normocephalic and atraumatic. Right Ear: Tympanic membrane and ear canal normal. Left Ear: Tympanic membrane and ear canal normal. Nose: Nose normal. Mouth/Throat: Mouth: Mucous membranes are moist. Pharynx: Oropharynx is clear. Eyes: Extraocular Movements: Extraocular movements intact. Cardiovascular: Rate and Rhythm: Normal rate and regular rhythm. Heart sounds: Normal heart sounds. Pulmonary: Effort: Pulmonary effort is normal. Breath sounds: Normal breath sounds. Musculoskeletal: General: Normal range of motion. Skin: General: Skin is warm and dry. Findings: No rash. Neurological: General: No focal deficit present. Mental Status: She is alert and oriented to person, place, and time. Cranial Nerves: Cranial nerves are intact. Motor: Motor function is intact. Coordination: Coordination is intact. Gait: Gait is intact. Psychiatric: Mood and Affect: Mood normal. Behavior: Behavior normal. Assessment and Plan Nausea Fever, unspecified fever cause - SARS-COV-2 (COVID-19), NAAT Viral URI Tension headache Was the System Triage Office contacted? Yes, [facility] Disposition: ED Patient given Zofran and tylenol and was monitored in office. Temp increased to 102.9F and no improvement in head pain. I recommended ER for pain control and further workup. Patient is agreeable. Pt declines ambulance service and will be arriving via private vehicle. [facility] was contacted and expecting her arrival. COVID 19 test pending. Wrap-Up Time: I spent a total of 30-39 minutes (exact time 39 mins) on the date of service in preparation, delivery, and documentation of the care provided to Michael Orellana excluding any time spent in the performance of separately billed services. documented in this encounter Nursing Notes * Annabel Patiño LPN - 11/11/2021 11:56 AM EDT 36 yo female presents with headache/fever since last night. Has been exposed to Covid/took home covid x 4 which were negative documented in this encounter Plan of Treatment Upcoming Encounters Date Type Specialty Care Team Description 04/07/2022 Office Visit Family Medicine Fanny Salmeron CRNP [address] [facility] [place] [address] Pending Results Name Type Priority Associated Diagnoses Date /Time SARS-COV-2 (COVID-19), NAAT Lab Routine Fever, unspecified fever cause 11/11/2021 12:59 PM EDT Health Maintenance Due Date Last Done Comments [...] (2 - Td or Tdap) 10/20/2025 10/21/2015 COVID-19 Vaccine Completed 02/26/2021, , 06/28/2020 [...] as of this encounter Visit Diagnoses Diagnosis Nausea- Primary Nausea alone Fever, unspecified fever cause Viral URI Acute upper respiratory infections of unspecified site Tension headache documented in this encounter Advance Directives Documents on File Type Date Recorded Patient Surgical Training Specialist Expl 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 Advanced Directive Advanced Directive Advanced Directive Advanced Directive Advanced Directive Advanced Directive Advanced Directive Advanced Directive Advanced Directive Advanced Directive Advanced Directive Advanced Directive Advanced Directive Advanced Directive Advanced Directive Advanced Directive Advanced Directive Advanced Directive Advanced Directive Advanced Directive Advanced Directive Advanced Directive Care Teams Covering Machine Operator Helper Relationship Specialty Start Date End Date Danny Thurston MD [address] [place] [address] PCP - General Family Medicine 11/11/21 documented as of this encounter
--- OUTSIDE RECORDS SUMMARY | 2022-12-23 01:43 | External Medical Summary | Summary of Care ---
Author Name Unknown Organization [place] [address] Care Team Providers Care Doormaker Name Role Phone Danny Thurston MD Primary Care Provider [phone] Reason for Visit * Reason Onset Date Comments COVID-19 Screening 11/13/2021 Encounter Details Date Type Department Care Team Description 11/13/2021 Telephone COVID19 Screening [facility] DEPT CLOSED 02/03/21 [address] [place] [id number], Automated Provider COVID-19 Screening Allergies Active Allergy [...] mRNA, LNP-s, No Pre serve, 2-Dose Series (Zoom) 07/19/2020,06/28/2020 Seasonal Influenza, Quadriva lent, No Preserve, [...] Notes * Telephone Encounter - Covid Results [facility] - 11/14/2021 12:00 AM EDT Outreach Attempts Nov 13 2021 9:01AM - Fail to reach patient IVR Message: Unsuccessful contact, no education provided documented in this encounter Plan of Treatment Upcoming Encounters Date Type Specialty Care Team Description 01/21/2022 Office Visit Family Medicine Claudia Morales MD [address] [place] [address] Health Maintenance Due Date Last Done Comments [...] Documents on File Type Date Recorded Patient Community Health Outreach Worker Expl 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 Advanced Directive Advanced Directive Advanced Directive Advanced Directive Advanced Directive Advanced Directive Advanced Directive Advanced Directive Advanced Directive Advanced Directive Advanced Directive Advanced Directive Advanced Directive Advanced Directive Advanced Directive Advanced Directive Advanced Directive Advanced Directive Advanced Directive Advanced Directive Advanced Directive Advanced Directive Advanced Directive Care Teams Doormaker Relationship Specialty Start Date End Date Danny Thurston MD [address] [place] [address] [place] [address] PCP - General Family Medicine 11/11/21 documented as of this encounter
--- OUTSIDE RECORDS SUMMARY | 2022-12-23 01:43 | External Medical Summary | Summary of Care ---
Author Name Unknown Organization [place] [address] Care Team Providers Care Solar Thermal Installer Name Role Phone Unavailable Primary Care Provider Unavailabl e Reason for Visit * Reason Comments eRx-Medication Refill Encounter Details Date Type Department Care Team Description 04/27/2021 Refill Family Practice [facility] [address] [place] [address] Donald Adams MD [address] [place] [address] [place] [address] Hypothyroidism Allergies Active Allergy Reactions Severity Noted Date Comments Penicillins Diarrhea 02/04/2015 documented as of this encounter (statuses as of 04/27/2021) Medications Medication Sig Dispensed Refills Start Date End Date Status Levothyroxine Sodium 100 MCG Oral Tablet (Levoxyl)Indicat ions:Hypothyroid ism TAKE 1 TABLET BY MOUTH DAILY. (AT LEAST 30 MIN PRIOR TO BREAKFAST OR OTHER MEDS) 90 Tablet 3 04/27/2021 Active Levothyroxine Sodium 100 MCG Oral Tablet (LEVOXYL)Indicat ions:Hypothyroid ism TAKE 1 TABLET BY MOUTH DAILY. (AT LEAST 30 MIN PRIOR TO BREAKFAST OR OTHER MEDS) 30 Tab 11 04/10/2020 04/27/2021 Discontinued documented as of this encounter (statuses as of 04/27/2021) Active Problems Problem Noted Date Hypothyroidism 02/04/2015 Overview: Per OB, tsh=2.5 during PPD positive 01/12/2013 Overview: quantiferon test negative on 06/04/2008. See scanned records. Immunization, BCG 01/02/2013 documented as of this encounter (statuses as of 04/27/2021) Immunizations Name Administration Dates Next Due COVID-19 [...] encounter Miscellaneous Notes * Telephone Encounter - Nigel Waterman DO - 04/27/2021 5:46 PM EST Signed Prescriptions: Disp Refills Levothyroxine Sodium 100 MCG Oral Tablet (*90 Tab*3 Sig: TAKE 1 TABLET BY MOUTH DAILY. (AT LEAST 30 MIN PRIOR TO BREAKFAST OR OTHER MEDS) Authorizing Provider: NIGEL WATERMAN * Telephone Encounter - Ghanshyam Moran [facility] - 04/27/2021 1:32 PM EST Pending Prescriptions: Disp Refills Levothyroxine Sodium 100 MCG Oral Tablet *90 Tab*3 Sig: TAKE 1 TABLET BY MOUTH DAILY. (AT LEAST 30 MIN PRIOR TO BREAKFAST OR OTHER MEDS) * Telephone Encounter - Ghanshyam Moran [facility] - 04/27/2021 1:30 PM EST Patient has no PCP under whom to authorize refills. Please approve if appropriate. Thanks, Ghanshyam Moran, PharmD Clinical Pharmacist Telepharmacy [phone] 04/27/2021, 1:31 PM documented in this encounter Plan of Treatment Upcoming Encounters Date Type Specialty Care Team Description 09/29/2021 Office Visit Dermatology Sue Abraham PA-C [address] [place] [address] 04/07/2022 Office Visit Family Medicine Shannon Huang PA-C [address] [facility] [place] [address] Health Maintenance Due Date Last Done Comments Depression Screening, Annual for Pts 12 and Over 09/16/2021 09/16/2020 PAP SMEAR-EVERY 3 YRS,AGES 21-65 04/06/2024 04/06/2021, 02/11/2016, 02/19/2014 DTaP,Tdap,and Td Vaccines (2 - Td or Tdap) 10/20/2025 10/21/2015 Influenza Vaccine (FLU shot) Completed , 01/28/2020, 01/28/2020, Additional history exists COVID-19 Vaccine Completed 02/26/2021, , 06/28/2020 GARDASIL-HPV [...] Documents on File Type Date Recorded Patient Electronic System Engineer Expl 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 Advanced Directive Advanced Directive Advanced Directive Advanced Directive Advanced Directive Advanced Directive Advanced Directive Advanced Directive Advanced Directive Advanced Directive Advanced Directive Advanced Directive Advanced Directive Advanced Directive Advanced Directive Advanced Directive Advanced Directive Advanced Directive Advanced Directive Advanced Directive
--- OUTSIDE RECORDS SUMMARY | 2022-12-23 01:43 | External Medical Summary | Summary of Care ---
Author Name Unknown Organization [place] [address] Care Team Providers Care National Park Tour Guide Name Role Phone Danny Thurston MD Primary Care Provider [phone] Reason for Visit * Reason Onset Date Comments Medication Refill 11/23/2021 Encounter Details Date Type Department Care Team Description 11/23/2021 Refill Family Practice [facility] [address] [place] [address] Nigel Waterman DO [address] [place] [address] Hypothyroidism Allergies Active Allergy Reactions Severity Noted Date Comments Penicillins Diarrhea 02/04/2015 documented as of this encounter (statuses as of 11/23/2021) Medications Medication Sig Dispensed Refills Start Date End Date Status Levothyroxine Sodium 100 MCG Oral Tablet (Levoxyl)Indicati ons:Hypothyroidis m (at least 30 min prior to breakfast or other meds) 90 Tablet 3 11/23/2021 Active Levothyroxine Sodium 100 MCG Oral Tablet (Levoxyl)Indicati ons:Hypothyroidis m TAKE 1 TABLET BY MOUTH DAILY. (AT LEAST 30 MIN PRIOR TO BREAKFAST OR OTHER MEDS) 90 Tablet 3 04/27/2021 11/23/2021 Discontinued (Refill) documented as of this encounter (statuses as of 11/23/2021) Active Problems Problem Noted Date Hypothyroidism 02/04/2015 Overview: Per OB, tsh=2.5 during PPD positive 01/12/2013 Overview: quantiferon test negative on 06/04/2008. See scanned records. Immunization, BCG 01/02/2013 documented as of this encounter (statuses as of 11/23/2021) Immunizations Name Administration Dates Next Due COVID-19 [...] Telephone Encounter - Nigel Waterman DO - 11/23/2021 3:47 PM EDT Signed Prescriptions: Disp Refills Levothyroxine Sodium 100 MCG Oral Tablet (*90 Tab*3 Sig: (at least 30 min prior to breakfast or other meds) Authorizing Provider: INGEL WATERMAN * Telephone Encounter - Sophie Nunez LPN - 11/23/2021 3:42 PM EDT Pt looking for 90 supply Did you pend patient's preferred pharmacy and medication before forwarding?yes Pharmacy: [id number] [facility] Pending Prescriptions: Disp Refills Levothyroxine Sodium 100 MCG Oral Tablet *90 Tab*3 Sig: (at least 30 min prior to breakfast or other meds) Last Visit: 04/06/2021 (in office), Visit date not found (telemedicine) Next Visit: 01/21/2022 If no future appointments scheduled, and last appointment is greater than a year ago, please schedule patient for a follow-up appointment Last date the medication was ordered: 04/27/21 Is this request for a controlled substance?No Urine Drug Screen:No results found for this or any previous visit. Patient Phone Numbers Labs: Lab Results Component Value Date/Time TSH 1.14 04/06/2021 01:43 PM TSH 0.55 04/10/2020 02:18 PM documented in this encounter Plan of Treatment Upcoming Encounters Date Type Specialty Care Team Description 01/21/2022 Office Visit Family Medicine Claudia Morales MD [address] [place] [address] Health Maintenance Due Date Last Done Comments Diabetes Screening 1983 HIV Screening 10/22/1998 Hepatitis C Screening 10/22/2001 Depression Screening, Annual for Pts 12 and [...] Hypothyroidism Unspecified hypothyroidism documented in this encounter Additional Health Concerns Infection Onset Date Last Indicated Resolved Time COVID-19 (confirmed) 11/11/2021 11/11/2021 documented as of this encounter Advance Directives Documents on File Type Date Recorded Patient Commercial Lending Vice President Expl 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 Advanced Directive Advanced Directive Advanced Directive Advanced Directive Advanced Directive Advanced Directive Advanced Directive Advanced Directive Advanced Directive Advanced Directive Advanced Directive Advanced Directive Advanced Directive Advanced Directive Advanced Directive Advanced Directive Advanced Directive Advanced Directive Advanced Directive Advanced Directive Advanced Directive Advanced Directive Advanced Directive Care Teams National Park Tour Guide Relationship Specialty Start Date End Date Danny Thurston MD [address] [place] [address] PCP - General Family Medicine 11/11/21 documented as of this encounter
--- OUTSIDE RECORDS SUMMARY | 2022-12-23 01:43 | External Medical Summary | Summary of Care ---
Author Name Unknown Organization [place] [address] Care Team Providers Care Occupational Health Rn Name Role Phone Danny Thurston MD Primary Care Provider [phone] Reason for Visit * Reason Onset Date Comments Medication Refill 02/01/2022 Medication Refill 02/04/2022 Encounter Details Date Type Department Care Team Description 02/01/2022 Refill Family Practice [facility] [address] [place] [address] Danny Thurston MD [address] [place] [address] Hypothyroidism Allergies Active Allergy Reactions Severity Noted [...] pharmacy and medication before forwarding?yes Pharmacy: [id number] [facility] [facility] Pending Prescriptions: Disp Refills Levothyroxine [...] Medicine Claudia Morales MD [address] [place] [address] Health Maintenance Due Date Last Done Comments [...] Documents on File Type Date Recorded Patient Computational Mathematician Expl 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 Advanced Directive Advanced Directive Advanced Directive Advanced Directive Advanced Directive Advanced Directive Advanced Directive Advanced Directive Advanced Directive Advanced Directive Advanced Directive Advanced Directive Advanced Directive Advanced Directive Advanced Directive Advanced Directive Advanced Directive Advanced Directive Advanced Directive Advanced Directive Advanced Directive Advanced Directive Advanced Directive Advanced Directive Advanced Directive Care Teams Occupational Health Rn Relationship Specialty Start Date End Date Danny Thurston MD [address] [place] [address] PCP - General Family Medicine 11/11/21 documented as of this encounter
--- OUTSIDE RECORDS SUMMARY | 2022-12-23 01:43 | External Medical Summary | Summary of Care ---
Author Name Unknown Organization [place] [address] Care Team Providers Care Melter Supervisor Name Role Phone Danny Thurston MD Primary Care Provider [phone] Reason for Visit * Reason Onset Date Comments COVID-19 Screening 11/12/2021 Encounter Details Date Type Department Care Team Description 11/12/2021 Telephone COVID19 Screening [facility] DEPT CLOSED 02/03/21 [address] [place] [id number], Automated Provider COVID-19 Screening Allergies Active Allergy [...] mRNA, LNP-s, No Pre serve, 2-Dose Series (SYMIC BIOMEDICAL) 07/19/2020,06/28/2020 Seasonal Influenza, Quadriva lent, No Preserve, [...] Notes * Telephone Encounter - Covid Results [facility] - 11/13/2021 1:06 AM EDT Outreach Attempts Nov 12 2021 9:03AM - Fail to reach patient IVR Message: Unsuccessful contact, no education provided documented in this encounter Plan of Treatment Upcoming Encounters Date Type Specialty Care Team Description 01/21/2022 Office Visit Family Medicine Claudia Morales MD [address] [place] [id number] Health Maintenance Due Date Last Done Comments [...] Documents on File Type Date Recorded Patient Wood Carving Lathe Operator Expl 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 Advanced Directive Advanced Directive Advanced Directive Advanced Directive Advanced Directive Advanced Directive Advanced Directive Advanced Directive Advanced Directive Advanced Directive Advanced Directive Advanced Directive Advanced Directive Advanced Directive Advanced Directive Advanced Directive Advanced Directive Advanced Directive Advanced Directive Advanced Directive Advanced Directive Advanced Directive Advanced Directive Care Teams Melter Supervisor Relationship Specialty Start Date End Date Danny Thurston MD [address] [place] [address] [place] [address] PCP - General Family Medicine 11/11/21 documented as of this encounter
--- OUTSIDE RECORDS SUMMARY | 2022-12-23 01:44 | External Medical Summary ---
Author Name Unknown Address Unknown Organization K01:LABORATORY [facility] - [address] [place] [address] Laboratory Report Ordering Provider Test Date Status SACHINABIMAELALISSA 07/10/2020 09:31:48 Final Observation Date Value Abnormality Reference (Units ) Status SARS Coronavirus 2 07/10/2020 09:31:48 Negative N egative Final Performing Location LAB[facility]ATORY [facility] - [address] [place] [address]
--- OUTSIDE RECORDS SUMMARY | 2022-12-23 01:44 | External Medical Summary | Summary of Care ---
Author Name Unknown Organization [place] [address] Care Team Providers Care Pig Conveyor Operator Name Role Phone Donald Adams MD Primary Care Provide r Reason for Referral * Evaluate & Treat - Unlimited Visits (Within 30 days (routine)) Status Reason Specialty Diagnoses / Procedures Referred By Contact Referred To Contact Pending Review Specialty Services Required Obstetrics/Gyne cology Diagnoses Cervical cancer screening Nigel Cortes DO [address] [facility] [address] Reason for Visit * Reason Comments Eye Infection L eye swelling to up per eyelid x 2 days, Denies increased tearing or discharge to eye. Encounter Details Date Type Department Care Team Description 06/13/2019 Office Visit [facility] [address] [facility] [address] Nigel Cortes DO [address] [facility] [address] [phone] Blepharitis of left upper eyelid, unspecified type*; Chalazion left upper eyelid; Cervical cancer screening Allergies Active Allergy Reactions Severity Noted Date Comments Penicillins Diarrhea 02/04/2015 documented as of this encounter (statuses as of 06/24/2019) Medications Medication Sig Dispensed Refills Start Date End Date Status levothyroxine (LEVOXYL) 100 MCG TabletIndications :Hypothyroidism TAKE 1 TABLET BY MOUTH DAILY. (AT LEAST 30 MIN PRIOR TO BREAKFAST OR OTHER MEDS) 30 Tab 11 11/24/2018 Active methylPREDNISolon e (MEDROL DOSEPACK) 4 MG TBPKIndications:B lepharitis of left upper eyelid, unspecified type follow package directions 21 Tab 0 06/13/2019 Active Phenazopyridine HCl (PYRIDIUM) 200 MG TabletIndications :Urinary tract infection with hematuria, site unspecified Take 1 Tab by mouth 3 times a day as needed for Pain. After meals for pain with urination 6 Tab 0 01/12/2019 06/13/2019 Discontinued( Medication List Clean Up) sulfamethoxazole- trimethoprim DS (BACTRIM DS) 800-160 MG per tabletIndications :Blepharitis of left upper eyelid, unspecified type,Chalazion left upper eyelid Take 1 Tab by mouth 2 times a day for 10 days. Until gone. 20 Tab 0 06/13/2019 06/23/2019 documented as of this encounter (statuses as of 06/24/2019) Active Problems Problem Noted Date Hypothyroidism 02/04/2015 Overview: Per OB, tsh=2.5 during PPD positive 01/12/2013 Overview: quantiferon test negative on 06/04/2008. See scanned records. Immunization, BCG 01/02/2013 documented as of this encounter (statuses as of 06/24/2019) Immunizations Name Administration Dates Next Due Seasonal Influenza, Quadriva lent, No Preserve, 6 Mons & Above, IM 01/26/2019,02/26/2018 Seasonal Influenza, Quadrivalent, No Preserve, I M 01/16/2015 TDAP (age 10 and older)(Boostrix) 10/21/2015 documented [...] file Travel History Travel Start Travel End documented as of this encounter Last Filed Vital Signs Vital Sign Reading Time Taken Comments Blood Pressure 110/72 06/13/2019 10:12 AM EST Pulse 60 06/13/2019 10:12 AM EST Temperature 36.3 C (97.3 F) 06/13/2019 1 0:12 AM EST Respiratory Rate 16 06/13/2019 10:1 2 AM EST Oxygen Saturation - - Inhaled Oxygen Concentration - - Weight 74.4 kg (164 lb) 06/13/2019 10:1 2 AM EST Pt reports from her scale this am Height - - Body Mass Index 26.47 01/12/2019 6:42 PM EDT documented in this encounter Progress Notes * Nigel Cortes DO - 06/24/2019 11:58 AM EST Chief Complaint Patient presents with Eye Infection L eye swelling to upper eyelid x 2 days, Denies increased tearing or discharge to eye. HPI: Patient is a 33-year-old female with complaint of left upper eyelid redness and swelling. Patient denies blurred vision or purulent discharge. Patient denies nasal congestion sore throat or earache. Patient denies fatigue fever chills or sweats. Patient denies cough or sputum. Patient denies headache dizziness weakness or numbness. Patient denies chest pain shortness of breath palpitations or edema. Patient denies abdominal pain nausea vomiting diarrhea constipation. Patient joint swellingor rash. Review systems otherwise negative Past Medical History: Medication list, PMH, Family history, social history, and problem list have been reviewed and updated in the Electronic Medical Record as noted below. Patient Active Problem List Diagnosis Code Immunization, BCG Z23 PPD positive R76.11 Hypothyroidism E03.9 Current Outpatient Medications Medication Sig Dispense Refill methylPREDNISolone (MEDROL DOSEPACK) 4 MG TBPK follow package directions 21 Tab 0 levothyroxine (LEVOXYL) 100 MCG Tablet TAKE 1 TABLET BY MOUTH DAILY. (AT LEAST 30 MIN PRIOR TO BREAKFAST OR OTHER MEDS) 30 Tab 11 No past medical history on file. Past Surgical History: Procedure Laterality Date DENTAL SURGERY PROCEDURE NEC wisdom teeth Review of patient's allergies indicates: Allergen Reactions Penicillins Diarrhea Family History Problem Relation Age of Onset Heart Disorder Grandmother (Paternal) Stroke Grandmother (Maternal) Diabetes Mother Hyperlipidemia Mother Diabetes Father Hyperlipidemia Father No Known Problems Brother No Known Problems Grandfather (Maternal) No Known Problems Grandfather (Paternal) Family Status Relation Status PGMA (Not Specified) MGMA (Not Specified) Mo (Not Specified) Fa (Not Specified) Bro (Not Specified) MGFA (Not Specified) PGFA (Not Specified) Social History Tobacco Use Smoking status: Never Smoker Smokeless tobacco: Never Used Substance Use Topics Alcohol use: No Vaping/E-Cigarette Use Vaping/E-Cigarette Substances Vaping/E-Cigarette Devices Review of Systems: No nausea, vomiting or diarrhea. No chest pain or shortness of breath, No fatigue. No fevers, chillor night sweats. All other ROS examined in detail and are negative except as documented in HPI. All other systems reviewed and are negative. Objective: BP 110/72 | Pulse 60 | Temp (Src) 97.3 (Tympanic) | Resp 16 | Wt 164 lbs (74.390kg) | BMI 26.47 kg/m | BSA 1.86 m Physical Exam: General: alert, healthy and no distress Head: Normocephalic, No masses, lesions, tenderness or abnormalities Eye Exam: PERRLA, EOMI, Conjunctiva are pink and non-injected, fundi benign, sclera clear, blepharitis of left upper eyelid with chalazion left upper eyelid Ears: External ears normal, Canals clear, TM's Normal Nose: no mucosal erythema, no mucosal edema, no purulent discharge Oropharynx: no exudate, no erythema, lips, buccal mucosa, and tongue normal and dentition normal Neck: supple, no adenopathy, thyroid normal size, non-tender, without nodularity, trachea midline Lymph: no palpable lymphadenopathy Heart: regular rate & rhythm, no murmurs and no gallops Lungs: chest symmetric with normal AP diameter, no chest deformities noted, no chest wall tenderness, lungs clear to auscultation Pulses: carotid=2/4 w/o bruits Abdomen: abdomen soft, non-tender, no masses, no hepatosplenomegaly, no rebound or guarding Extremities: no edema, no clubbing, no cyanosis Skin: skin color, texture, turgor are normal, no rashes or significant lesions ASSESSMENT/PLAN: Blepharitis of left upper eyelid, unspecified type (Primary) - sulfamethoxazole-trimethoprim DS (BACTRIM DS) 800-160 MG per tablet; Take 1 Tab by mouth 2 times a day for 10 days. Until gone. - methylPREDNISolone (MEDROL DOSEPACK) 4 MG TBPK; follow package directions Warm compresses q.i.d. to affected area Tylenol OTC as directed p.r.n. Consider referred automatic riveting machine operator if symptoms persist or worsen Chalazion left upper eyelid - sulfamethoxazole-trimethoprim DS (BACTRIM DS) 800-160 MG per tablet; Take 1 Tab by mouth 2 times a day for 10 days. Until gone. Warm compresses q.i.d. to affected area Tylenol OTC as directed p.r.n. Consider referral to automatic riveting machine operator if symptoms persist or worsen Cervical cancer screening - SURVEY INSTRUMENT OPERATOR REFERRAL OP Follow Up: Return if symptoms worsen or fail to improve. Nigel Cortes DO 06/24/19 documented in this encounter Nursing Notes * Hodan Torrez LPN - 06/13/2019 10:11 AM EST The patient has been properly identified by confirmation of name and date of . Chief Complaint Patient presents with Eye Infection L eye swelling to upper eyelid x 2 days, Denies increased tearing or discharge to eye. documented in this encounter Plan of Treatment Scheduled Referrals Name Type Priority Associated Diagnoses Orde r Schedule SURVEY INSTRUMENT OPERATOR REFERRAL OP Referral Within 30 days (routine) Cervical cancer screening Ordered: 06/13/2019 Health Maintenance Due Date Last Done Comments PAP SMEAR-EVERY 3 YRS,AGES 21-65 02/10/2019 02/11/2016, 02/19/2014 DTaP,Tdap,and Td Vaccines (2 - Td) 10/20/2025 10/21/2015 Influenza Vaccine (FLU shot) Completed 07/2018, 02/26/2018, 01/16/2015 MENINGOCOCCAL (MENACTRA/MENVEO) Aged Out No longer eligible b ased on patient's age to complete this topic Pneumococcal Vaccine: Pediatrics (0 to 5 Years) and At-Risk Patients (6 to 64 Years) Aged Out No longer eligible b ased on patient's age to complete this topic documented as of this encounter Implants Not on filedocumented as of this encounter Visit Diagnoses Diagnosis Blepharitis of left upper eyelid, unspecified type- Primary Chalazion left upper eyelid Cervical cancer screening Screening for malignant neoplasm of the cervix documented in this encounter Advance Directives Documents on File Type Date Recorded Patient Nursing Secretary Expl 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 Advanced Directive Advanced Directive"
--- OUTSIDE RECORDS SUMMARY | 2022-12-23 01:44 | External Medical Summary | Summary of Care ---
Author Name Unknown Organization [place] [address] Care Team Providers Care Hospice Music Therapist Name Role Phone Donald Adams MD Primary Care Provide r Reason for Visit * Reason Onset Date Comments MyCode Nonconsent - Not interested at this time 04/10/2020 Encounter Details Date Type Department Care Team Description 04/10/2020 Orders Only Outcomes Research Department [address] [place] [address] Savannah Alfred CHRA MyCode Nonconsent Documentation Allergies Active Allergy Reactions Severity Noted Date Comments Penicillins Diarrhea 02/04/2015 documented as of this encounter (statuses as of 04/10/2020) Medications Medication Sig Dispensed Refills Start Date End Date Status Levothyroxine Sodium 100 MCG Oral Tablet (LEVOXYL)Indications: Hypothyroidism TAKE 1 TABLET BY MOUTH DAILY. (AT LEAST 30 MIN PRIOR TO BREAKFAST OR OTHER MEDS) 30 Tab 11 04/10/2020 Active documented as of this encounter (statuses as of 04/10/2020) Active Problems Problem Noted Date Hypothyroidism 02/04/2015 Overview: Per OB, tsh=2.5 during PPD positive 01/12/2013 Overview: quantiferon test negative on 06/04/2008. See scanned records. Immunization, BCG 01/02/2013 documented as of this encounter (statuses as of 04/10/2020) Immunizations Name Administration Dates Next Due Seasonal Influenza, Quadriva lent, No Preserve, 6 Mons & Above, IM 01/28/2020,01/26/2019,02/26/2018 Seasonal Influenza, Quadriva lent, No Preserve, IM 01/16/2015 TDAP (age 10 and older)(Boostrix) 10/21/2015 [...] as of this encounter Progress Notes * Savannah Alfred CHRA - 04/10/2020 2:19 PM EST MyCode Nonconsent Documentation Michael Orellana was approached in the clinic regarding participation in the MyCode Project and did not consent. documented in this encounter Plan of Treatment Upcoming Encounters Date Type Specialty Care Team Description 04/10/2020 Laboratory Laboratory [place] [place] [address] [facility] [place] [address] [phone] Hypothyroidism Health Maintenance Due Date Last Done Comments PAP SMEAR-EVERY 3 YRS,AGES 21-65 02/10/2019 02/11/2016, 02/19/2014 *TSH FOR THYROID MEDICATION MONITORING YEARLY 11/27/2019 *DEPRESSION SCREENING,ANNUAL FOR PTS 12 AND OVER 03/10/2020 DTaP,Tdap,and Td Vaccines (2 - Td) 10/20/2025 10/21/2015 Influenza Vaccine (FLU shot) Completed 08/2019, 01/26/2019, 02/26/2018, Additional history exists MENINGOCOCCAL (MENACTRA/MENVEO) Aged Out No longer eligible based on patient's age to complete this topic Pneumococcal Vaccine: Pediatrics (0 to 5 Years) and At-Risk Patients (6 to 64 Years) Aged Out No longer eligible based on patient's age to complete this topic documented as of this encounter Implants Not on filedocumented as of this encounter Advance Directives Documents on File Type Date Recorded Patient Mill Attendant Expl 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 Advanced Directive Advanced Directive Advanced Directive Advanced Directive
--- OUTSIDE RECORDS SUMMARY | 2022-12-23 01:44 | External Medical Summary | Summary of Care ---
Author Name Unknown Organization [place] [address] Care Team Providers Care Inspector Rubber Stamp Die Name Role Phone Donald Adams MD Primary Care Provide r Reason for Visit * Reason Comments Acute mole started after l ast september-has changed in color. on L side of chest Encounter Details Date Type Department Care Team Description 04/10/2020 Office Visit Family Practice [facility] [address] Donald Adams MD [address] [place] [address] [phone] Atypical mole*; Hypothyroidism Allergies Active Allergy Reactions Severity Noted Date Comments Penicillins Diarrhea 02/04/2015 documented as of this encounter (statuses as of 04/10/2020) Medications Medication Sig Dispensed Refills Start Date End Date Status Levothyroxine Sodium 100 MCG Oral Tablet (LEVOXYL)Indicatio ns:Hypothyroidism TAKE 1 TABLET BY MOUTH DAILY. (AT LEAST 30 MIN PRIOR TO BREAKFAST OR OTHER MEDS) 30 Tab 11 04/10/2020 Active methylPREDNISolone (MEDROL DOSEPACK) 4 MG TBPKIndications:Bl epharitis of left upper eyelid, unspecified type follow package directions 21 Tab 0 06/13/2019 04/10/2020 Discontinued (Patient preference/d iscontinuati on) levothyroxine (LEVOXYL) 100 MCG TabletIndications: Hypothyroidism TAKE 1 TABLET BY MOUTH DAILY. (AT LEAST 30 MIN PRIOR TO BREAKFAST OR OTHER MEDS) 30 Tab 11 11/16/2019 04/10/2020 Discontinued (Refill) documented as of this encounter [...] Sign Reading Time Taken Comments Blood Pressure 120/70 04/10/2020 2:04 PM EST Pulse 60 04/10/2020 2:04 PM EST Temperature 37 C (98.6 F) 04/10/2020 2:04 PM EST Respiratory Rate 16 04/10/2020 2:04 PM EST Oxygen Saturation - - Inhaled Oxygen Concentration - - Weight 74.7 kg (164 lb 11.2 oz) 04/10/2020 2:04 PM EST Height 167.6 cm (5' 6") 04/10/2020 2:04 PM EST Body Mass Index 26.58 04/10/2020 2:04 PM EST documented in this encounter Progress Notes * Donald Adams MD - 04/10/2020 2:12 PM EST 04/10/2020 Author: Donald Adams MD Assessment/Plan Medications Discontinued During This Encounter Medication Reason methylPREDNISolone (MEDROL DOSEPACK) 4 MG TBPK Patient preference/discontinuation levothyroxine (LEVOXYL) 100 MCG Tablet Refill Pt is a 34 year old female here for the following problems/concerns: (D22.9) Atypical mole (primary encounter diagnosis) Plan: ask a doc submitted to dermatology on 04/10/2020 (E03.9) Hypothyroidism Plan: Levothyroxine Sodium 100 MCG Oral Tablet (LEVOXYL), TSH WITH FREE T4 IF INDICATED continue med Patient and or guardian communicated understanding and agreement of treatment plan including medications and there common side effects if indicated. All questions answered. CC/HPI: Michael Orellana is a 34 year old female Chief Complaint Patient presents with Acute mole started after last september-has changed in color. on L side of chest Brief Clinical History Ms. Orellana is a 34 year old woman last seen in Family Medicine 9 months ago (06-13-19). She is notdue for eval of any conditions. There are no exam notes on file for this visit. pt has a raised brown, slightly scaly lesion on left shoulder that is growing. lesion was not present in september 2018 no pain no itchy Problem list: Patient Active Problem List Diagnosis Code Immunization, BCG Z23 PPD positive R76.11 Hypothyroidism E03.9 Past Medical History: No past medical history on file. Past Surgical History: Past Surgical History: Procedure Laterality Date DENTAL SURGERY PROCEDURE NEC wisdom teeth Medication List: Current Outpatient Medications Medication Sig Dispense Refill Levothyroxine Sodium 100 MCG Oral Tablet (LEVOXYL) TAKE 1 TABLET BY MOUTH DAILY. (AT LEAST 30 MIN PRIOR TO BREAKFAST OR OTHER MEDS) 30 Tab 11 Allergies: Penicillins Problem list, Past Medical History, Family history and social history reviewed and updated in [facility] EHR ROS: No nausea, vomiting or diarrhea. No chest pain or shortness of breath, No fatigue. No fevers, chillor night sweats. All other ROS examined in detail and are negative except as documented in HPI. Vitals: BP 120/70 (BP Site: Left Arm, BP Position: Sitting, BP Cuff Size: Regular) | Pulse 60 | Temp 37 C(98.6 F) (Tympanic) | Resp 16 | Ht 1.676 m (5' 6") | Wt 74.7 kg (164 lb 11.2 oz) | BMI 26.58 kg/m | BSA 1.87 m Body mass index is 26.58 kg/m. Exam: General: alert, healthy and no distress Head: Normocephalic, No masses, lesions, tenderness or abnormalities Heart: regular rate & rhythm, no murmurs and no gallops Lungs: chest symmetric with normal AP diameter, no chest deformities noted, no chest wall tenderness, lungs clear to auscultation Abdomen: abdomen soft, non-tender, no masses, no hepatosplenomegaly, no rebound or guarding Extremities: no edema, no clubbing, no cyanosis Raised mole on left shoulder as described above See picture scanned into ehr Assessment and plan located at the top of the page * Erinn Rolon CMA - 04/10/2020 2:03 PM EST The patient has been properly identified by confirmation of name and date of . Chief Complaint Patient presents with Acute mole started after last september-has changed in color. on L side of chest documented in this encounter Plan of Treatment Pending Results Name Type Priority Associated Diagnoses Date /Time TSH WITH FREE T4 IF INDICATED Lab Routine Hypothyroidism 04/10/2020 2:18 PM EST Scheduled Orders Name Type Priority Associated Diagnoses Orde r Schedule TSH WITH FREE T4 IF INDICATED Lab Routine Hypothyroidism Expected: 04/10/2020 (Approximate), Expires: 04/10/2021 Health Maintenance Due Date Last Done Comments [...] as of this encounter Visit Diagnoses Diagnosis Atypical mole- Primary Benign neoplasm of skin, site unspecified Hypothyroidism Unspecified hypothyroidism documented in this encounter Advance Directives Documents on File Type Date Recorded Patient Social And Political Studies Professor Expl 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 Advanced Directive Advanced Directive Advanced Directive Advanced Directive
--- OUTSIDE RECORDS SUMMARY | 2022-12-23 01:44 | External Medical Summary | Summary of Care ---
Author Name Unknown Organization [place] [address] Care Team Providers Care [id number] Android Developer Name Role Phone Unavailable Primary Care Provider Unavailabl e Reason for Visit * Reason Comments NEW PATIENT Encounter Details Date Type Department Care Team Description 10/07/2020 Office Visit Ophthalmology, [facility] [address] [place] [address] Cam Worley, DO [address] [place] [address] Meibomian gland dysfunction (MGD) of both eyes*; Rosacea Allergies Active Allergy Reactions Severity Noted Date Comments Penicillins Diarrhea 02/04/2015 documented as of this encounter (statuses as of 10/07/2020) Medications Medication Sig Dispensed Refills Start Date End Date Status Levothyroxine Sodium 100 MCG Oral Tablet (LEVOXYL)Indicati ons:Hypothyroidis m TAKE 1 TABLET BY MOUTH DAILY. (AT LEAST 30 MIN PRIOR TO BREAKFAST OR OTHER MEDS) 30 Tab 11 04/10/2020 Active Doxycycline Hyclate 50 MG Oral Capsule (Vibramycin) Take 1 Cap by mouth daily for 45 days. 45 Cap 0 10/07/2020 11/21/2020 Active methylPREDNISolon e 4 MG Oral Tablet Therapy Pack (Medrol Dosepack) follow package directions 21 Tab 0 09/16/2020 10/07/2020 Discontinued (Medication List Clean Up) documented as of this encounter (statuses as of 10/07/2020) Active Problems Problem Noted Date Hypothyroidism 02/04/2015 Overview: Per OB, tsh=2.5 during PPD positive 01/12/2013 Overview: quantiferon test negative on 06/04/2008. See scanned records. Immunization, BCG 01/02/2013 documented as of this encounter (statuses as of 10/07/2020) Immunizations Name Administration Dates Next Due COVID-19 [...] Sign Reading Time Taken Comments Blood Pressure - - Pulse - - Temperature 36.6 C (97.8 F) 10/07/2020 11:28 AM E DT Respiratory Rate - - Oxygen Saturation - - Inhaled Oxygen Concentration - - Weight - - Height - - Body Mass Index - - documented in this encounter Progress Notes * Cam Worley, - 10/07/2020 11:52 AM EDT Michael Orellana is a 34 year old female who presents for eyelid evaluation. Pt rpeorts recurrentstyes OU and treated with compresses oral abx and tobradex with improvement frustrated. Ophthalmology Past History: contact lenses Ophthalmology Family History: none Ophthalmology ROS: Positive for stye OU and no recent significant change in vision,no eye pain, redness, discharge,no diplopia Current Ophthalmic Medications: None EXAM: Base Eye Exam Visual Acuity (Snellen - Linear) Right Left Dist cc 20/25 20/20 Correction: Contacts Tonometry (Tonopen, 11:39 AM) Right Left Pressure 20 20 Pupils Pupils Right PERRL Left PERRL Visual Hernandez (Counting fingers) Right Left Full Full Extraocular Movement Right Left Full Full Dilation Both eyes: 0.5% Proparacaine @ 11:40 AM Slit Lamp and Fundus Exam External Exam Right Left External Rosacea Rosacea Slit Lamp Exam Right Left Lids/Lashes 2+ Meibomian gland dysfunction 2+ Meibomian gland dysfunction, Chalazion: upper lid Conjunctiva/Sclera White and quiet Cornea Clear Anterior Chamber Deep and quiet Iris Round and reactive Lens Clear IMPRESSION: 1. rosacea and MGD with stye recurrences PLAN: 1. reassurance 2. Daily lid hygiene too strong emphasized dilution 3. Discussed doxy and interested in trying 50 mg Daily sun protection and GI protection 4. 3 week return Cam Worley DO documented in this encounter Nursing Notes * Radha Rivera, RN - 10/07/2020 11:29 AM EDT Michael Orellana is a 34 year old female who presents for recurrent chalazion/stye both eyes every other month for ~ 2 years now. Pt is CL wearer since 11 y/o. Last Office/Telemedicine Visit: No Previous Office/Telemedicine Visits She currently states "Currently I'm all settled. I finished my steroid, antibiotic, and tobradex drops about 2 weeks ago. I see my GP for treatment." Are you diabetic? No Current Ophthalmic Medications: baby shampoo for lid hygiene daily Referred by: COMPREHENSIVE OCULAR HISTORY Any history in yourself or blood related family of: -Diabetes- Family -Diabetic Retinopathy- No -High Blood Pressure- Family -Heart Disease- Family -Thyroid Disease- Self -Blindness- No -Macular Degeneration- No -Retinal Detachment- No -Glaucoma/Pressure in the Eye- No -Chronic Problem Headaches or Migraines- No -Have you ever had any major surgery or serious injury of or around the eyes- no -Are your eyes chronically- none -Do you smoke- No Vision, IOP, current eyeglass Rx, pupil check and dilation if done can be found in ophth exam. documented in this encounter Plan of Treatment Upcoming Encounters Date Type Specialty Care Team Description 11/03/2020 Office Visit Ophthalmology Cam Worley, DO [address] [place], [place] [id number] 09/29/2021 Office Visit Dermatology Sue Abraham PA-C [address], [place] [id number] Health Maintenance Due Date Last Done Comments PAP SMEAR-EVERY 3 YRS,AGES 21-65 02/10/2019 02/11/2016, 02/19/2014 DTaP,Tdap,and Td Vaccines (2 - Td) 10/20/2025 10/21/2015 Influenza Vaccine (FLU shot) Completed 08/2019, 01/28/2020, 01/26/2019, Additional history exists COVID-19 Vaccine Completed 07/19/2020, 06/28/2020 MENINGOCOCCAL (MENACTRA/MENVEO) [...] Documents on File Type Date Recorded Patient Spray Gunner Expl 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 Advanced Directive Advanced Directive Advanced Directive Advanced Directive Advanced Directive Advanced Directive Advanced Directive Advanced Directive Advanced Directive Advanced Directive Advanced Directive Advanced Directive Advanced Directive Advanced Directive Advanced Directive
--- OUTSIDE RECORDS SUMMARY | 2022-12-23 01:44 | External Medical Summary | Summary of Care ---
Author Name Unknown Organization [place] [address] Care Team Providers Care Warehouse Receiver Name Role Phone Unavailable Primary Care Provider Unavailabl e Reason for Referral * Evaluate & Treat - Unlimited Visits (Within 24 hrs (call dept; emergent)) Status Reason Specialty Diagnoses / Procedures Referred By Contact Referred To Contact Pending Review Specialty Services Required Ophthalmology Diagnoses Recurrent blepharitis Roland Ricardo MD [address] [place] [address] Question Answer Referral Priority Within 24 hrs (call dept; emergent) Electronically signed by Roland Ricardo MD at Reason for Visit * Reason Comments Acute Recurrent redness an d swelling of upper eyelid every other month x 2 years Encounter Details Date Type Department Care Team Description 09/16/2020 Office Visit Family Practice [facility] [address] [place] [address] Roland Ricardo MD [address] [place] [address] Recurrent blepharitis* Allergies Active Allergy Reactions Severity Noted Date Comments Penicillins Diarrhea 02/04/2015 documented as of this encounter (statuses as of 09/16/2020) Medications Medication Sig Dispensed Refills Start Date End Date Status Levothyroxine Sodium 100 MCG Oral Tablet (LEVOXYL)Indication s:Hypothyroidism TAKE 1 TABLET BY MOUTH DAILY. (AT LEAST 30 MIN PRIOR TO BREAKFAST OR OTHER MEDS) 30 Tab 11 04/10/2020 Active Sulfamethoxazole-Tr imethoprim 800-160 MG Oral Tablet (Bactrim DS) Take 1 Tab by mouth 2 times a day for 10 days. Until gone. 20 Tab 0 09/16/2020 09/26/2020 Active methylPREDNISolone 4 MG Oral Tablet Therapy Pack (Medrol Dosepack) follow package directions 21 Tab 0 09/16/2020 Active Tobramycin-Dexameth asone 0.3-0.1 % Ophthalmic Suspension (TobraDex) Instill 1 Drop into eye 4 times a day for 14 days. In affected eye(s) until symptoms resolved. 5 mL 0 09/16/2020 09/30/2020 Active documented as of this encounter (statuses as of 09/16/2020) Active Problems Problem Noted Date Hypothyroidism 02/04/2015 Overview: Per OB, tsh=2.5 during PPD positive 01/12/2013 Overview: quantiferon test negative on 06/04/2008. See scanned records. Immunization, BCG 01/02/2013 documented as of this encounter (statuses as of 09/16/2020) Immunizations Name Administration Dates Next Due COVID-19 [...] Sign Reading Time Taken Comments Blood Pressure 110/70 09/16/2020 7:55 AM EDT Pulse - - Temperature 36.4 C (97.6 F) 09/16/2020 7:55 AM ED T Respiratory Rate - - Oxygen Saturation - - Inhaled Oxygen Concentration - - Weight 75 kg (165 lb 6.4 oz) 09/16/2020 7:55 AM EDT Height 167.6 cm (5' 6") 09/16/2020 7:55 AM EDT Body Mass Index 26.7 09/16/2020 7:55 AM EDT documented in this encounter Progress Notes * Roland Ricardo MD - 09/16/2020 8:21 AM EDT SUBJECTIVE: Michael Orellana is a 34 year old female. Chief Complaint Patient presents with Acute Recurrent redness and swelling of upper eyelid every other month x 2 years HPI: Recurrent blepharitis or left eyelid every few months for about two years. Responds to oral abx andsteroids. Interested in definitive treatment. She may be a candidate for either steroid injection or gland removal. Will have her see ophthalmology to discuss. Patient Active Problem List Diagnosis Code Immunization, BCG Z23 PPD positive R76.11 Hypothyroidism E03.9 Current Outpatient Medications Medication Sig Dispense Refill methylPREDNISolone 4 MG Oral Tablet Therapy Pack (Medrol Dosepack) follow package directions 21Tab 0 Sulfamethoxazole-Trimethoprim 800-160 MG Oral Tablet (Bactrim DS) Take 1 Tab by mouth 2 times aday for 10 days. Until gone. 20 Tab 0 Levothyroxine Sodium 100 MCG Oral Tablet (LEVOXYL) TAKE 1 TABLET BY MOUTH DAILY. (AT LEAST 30 MIN PRIOR TO BREAKFAST OR OTHER MEDS) 30 Tab 11 Allergy: Review of patient's allergies indicates: Allergen Reactions Penicillins Diarrhea OBJECTIVE: BP 110/70 | Temp 36.4 C (97.6 F) | Ht 1.676 m (5' 6") | Wt 75 kg (165 lb 6.4 oz) | BMI 26.70 kg/m | BSA 1.87 m Gen: nad Eyes: left upper lid swollen; no drainage or conjunctivitis visible ASSESSMENT AND PLAN: (H01.009) Recurrent blepharitis (primary encounter diagnosis) Plan: OPHTHALMOLOGY REFERRAL OP -bactrim x 10 days; medrol dose pack; warm compress; avoid contacts Follow up as needed. No other complaints were offered at this time. Roland Ricardo MD documented in this encounter Miscellaneous Notes * Addendum Note - Roland Ricardo MD - 09/16/2020 10:17 AM EDT Addended by: ROLAND RICARDO on: 09/16/2020 10:17 AM Modules accepted: Orders documented in this encounter Plan of Treatment Upcoming Encounters Date Type Specialty Care Team Description 09/25/2020 Office Visit Dermatology Sue Abraham PA-C [address] [place] [address] [phone] 10/08/2020 Office Visit Ophthalmology Cam Worley, [address] [place] [address] Scheduled Referrals Name Type Priority Associated Diagnoses Orde r Schedule OPHTHALMOLOGY REFERRAL OP Referral Within 24 hrs (call dept; emergent) Recurrent blepharitis Ordered: 09/16/2020 Health Maintenance Due Date Last Done Comments PAP SMEAR-EVERY 3 YRS,AGES 21-65 02/10/2019 02/11/2016, 02/19/2014 *DEPRESSION SCREENING,ANNUAL FOR PTS 12 AND OVER [...] as of this encounter Visit Diagnoses Diagnosis Recurrent blepharitis- Primary documented in this encounter Advance Directives Documents on File Type Date Recorded Patient Electronic Court Recorder Expl 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 Advanced Directive Advanced Directive Advanced Directive Advanced Directive Advanced Directive Advanced Directive Advanced Directive Advanced Directive Advanced Directive Advanced Directive Advanced Directive
--- OUTSIDE RECORDS SUMMARY | 2022-12-23 01:44 | External Medical Summary | Summary of Care ---
Author Name Unknown Organization [place] [address] Care Team Providers Care Dynamic Etching Processor Name Role Phone Donald Adams MD Primary Care Provide r Reason for Visit * Reason Comments Advice Encounter Details Date Type Department Care Team Description 08/09/2019 Telephone Family Practice [facility] [address] [place] [address] Donald Adams MD [address] [place] [address] Advice Allergies Active Allergy Reactions Severity Noted Date Comments Penicillins Diarrhea 02/04/2015 documented as of this encounter (statuses as of 08/09/2019) Medications Medication Sig Dispensed Refills Start Date End Date Status levothyroxine (LEVOXYL) 100 MCG TabletIndications:Hy pothyroidism TAKE 1 TABLET BY MOUTH DAILY. (AT LEAST 30 MIN PRIOR TO BREAKFAST OR OTHER MEDS) 30 Tab 11 11/24/2018 Active methylPREDNISolone (MEDROL DOSEPACK) 4 MG TBPKIndications:Blep haritis of left upper eyelid, unspecified type follow package directions 21 Tab 0 06/13/2019 Active erythromycin 5 MG/GM ophthalmic ointment Instill into the right eye 4 times a day for 10 days. Apply to affected eye(s) until redness and discharge resolved. 3.5 g 1 08/09/2019 08/19/2019 Active documented as of this encounter (statuses as of 08/09/2019) Active Problems Problem Noted Date Hypothyroidism 02/04/2015 Overview: Per OB, tsh=2.5 during PPD positive 01/12/2013 Overview: quantiferon test negative on 06/04/2008. See scanned records. Immunization, BCG 01/02/2013 documented as of this encounter (statuses as of 08/09/2019) Immunizations Name Administration Dates Next Due Seasonal [...] Travel End documented as of this encounter Miscellaneous Notes * Telephone Encounter - Donald Adams MD - 08/09/2019 2:01 PM EDT I talked to pt she will myg me with pictures of her eye. * Telephone Encounter - Noelle Norris LPN - 08/09/2019 8:[address] Adams please advise would you like a face to face, telephonic telemedicine before treating pt. * Telephone Encounter - Laura Shook OSA - 08/09/2019 7:06 AM EDT Pt calling in. Stating she has swelling of her Right lower eyelid x 3 days. Denies any discharge from eye. Does have some pain along with the swelling which is worse first thing in the morning. Pt had Blepharitis of her Left upper eye a few months ago, and believes this is what is wrong with her right eye. She is asking if the same medication could be sent in to her pharmacy for her symptoms. Uses [facility] [address]. Please advise. Thank you. documented in this encounter Plan of Treatment Health Maintenance Due Date Last Done Comments [...] Documents on File Type Date Recorded Patient Survey Crew Chief Expl 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 Advanced Directive Advanced Directive
--- OUTSIDE RECORDS SUMMARY | 2022-12-23 01:44 | External Medical Summary | Summary of Care ---
Author Name Unknown Organization [place] [address] Care Team Providers Care Cheese Sprayer Name Role Phone Donald Adams MD Primary Care Provide r Encounter Details Date Type Department Care Team Description 02/01/2020 Abstract Family Practice [facility] [address] [place] [address] Hodan Torrez LPN Allergies Active Allergy Reactions Severity Noted Date Comments Penicillins Diarrhea 02/04/2015 documented as of this encounter (statuses as of 02/01/2020) Medications Medication Sig Dispensed Refills Start Date End Date Status methylPREDNISolone (MEDROL DOSEPACK) 4 MG TBPKIndications:Bleph aritis of left upper eyelid, unspecified type follow package directions 21 Tab 0 06/13/2019 Active levothyroxine (LEVOXYL) 100 MCG TabletIndications:Hyp othyroidism TAKE 1 TABLET BY MOUTH DAILY. (AT LEAST 30 MIN PRIOR TO BREAKFAST OR OTHER MEDS) 30 Tab 11 11/16/2019 Active documented as of this encounter (statuses as of 02/01/2020) Active Problems Problem Noted Date Hypothyroidism 02/04/2015 Overview: Per OB, tsh=2.5 during PPD positive 01/12/2013 Overview: quantiferon test negative on 06/04/2008. See scanned records. Immunization, BCG 01/02/2013 documented as of this encounter (statuses as of 02/01/2020) Immunizations Name Administration Dates Next Due Seasonal [...] Assigned at Date Recorded Not on file documented as of this encounter Plan of Treatment Health Maintenance Due Date Last Done Comments PAP SMEAR-EVERY 3 YRS,AGES 21-65 02/10/2019 02/11/2016, 02/19/2014 Influenza Vaccine (FLU shot) (#1) 2019 01/28/2020, 01/26/2019, 02/26/2018, Additional history exists *TSH FOR THYROID MEDICATION MONITORING YEARLY 11/27/2019 DTaP,Tdap,and Td Vaccines (2 - Td) 10/20/2025 10/21/2015 MENINGOCOCCAL (MENACTRA/MENVEO) Aged Out No longer eligible [...] Documents on File Type Date Recorded Patient Molecular Biology Director Expl 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 Advanced Directive Advanced Directive
--- OUTSIDE RECORDS SUMMARY | 2022-12-23 01:44 | External Medical Summary | Summary of Care ---
Author Name Unknown Organization [facility] Address [place] [address] Care Team Providers Care Mixer Whipped Topping Name Role Phone Unavailable Primary Care Provider Unavailabl e Reason for Visit * Reason Onset Date Comments COVID-19 Screening 07/10/2020 Encounter Details Date Type Department Care Team Description 07/10/2020 Pandemic Screening COVID19 Screening, [place] [address] [facility] [place] [address] [place], [facility] [id number] Suspected 2019 novel coronavirus infection* Allergies Active Allergy Reactions Severity Noted Date Comments Penicillins Diarrhea 02/04/2015 documented as of this encounter (statuses as of 07/10/2020) Medications Medication Sig Dispensed Refills Start Date End Date Status Levothyroxine Sodium 100 MCG Oral Tablet (LEVOXYL)Indications :Hypothyroidism TAKE 1 TABLET BY MOUTH DAILY. (AT LEAST 30 MIN PRIOR TO BREAKFAST OR OTHER MEDS) 30 Tab 11 04/10/2020 Active Cephalexin 500 MG Oral Capsule Take 1 Cap by mouth 2 times a day for 10 days. 20 Cap 0 06/30/2020 07/10/2020 Active documented as of this encounter (statuses as of 07/10/2020) Active Problems Problem Noted Date Hypothyroidism 02/04/2015 Overview: Per OB, tsh=2.5 during PPD positive 01/12/2013 Overview: quantiferon test negative on 06/04/2008. See scanned records. Immunization, BCG 01/02/2013 documented as of this encounter (statuses as of 07/10/2020) Immunizations Name Administration Dates Next Due Seasonal [...] as of this encounter Progress Notes * Ilda Devlin PA-C - 07/10/2020 9:31 AM EDT Travel Screening No screening recorded since 07/09/20 0000 Travel History Travel since 06/12/20 No documented travel since 06/12/20 COVID-19 Suspected based on symptoms and exposure Testing ordered COVID 19 Testing documented in this encounter Plan of Treatment Upcoming Encounters Date Type Specialty Care Team Description 09/25/2020 Office Visit Dermatology Sue Abraham PA-C [address] [place] [address] Scheduled Orders Name Type Priority Associated Diagnoses Orde r Schedule SARS-COV-2 (COVID-19), NAAT Lab Routine Suspected 2018 novel coronavirus infection Ordered: 07/10/2020 Health Maintenance Due Date Last Done Comments [...] as of this encounter Visit Diagnoses Diagnosis Suspected 2019 novel coronavirus infection- Primary documented in this encounter Advance Directives Documents on File Type Date Recorded Patient Center Rep Expl 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 Advanced Directive Advanced Directive Advanced Directive Advanced Directive Advanced Directive Advanced Directive Advanced Directive Advanced Directive
--- OUTSIDE RECORDS SUMMARY | 2022-12-23 01:44 | External Medical Summary | Summary of Care ---
Author Name Unknown Organization [place] [address] Care Team Providers Care Ecologist Technician Name Role Phone Donald Adams MD Primary Care Provide r Reason for Visit * Reason Comments Rash bullseyes rash on ba ck of lower leg. starting to fade. Pics sent to Dr. Adams in MyG. Encounter Details Date Type Department Care Team Description 05/22/2020 Office Visit Family Practice [facility] [address] [facility] [place] [address] Shannon Huang PA-C [address] [place] [address] Eczema, unspecified type* Allergies Active Allergy Reactions Severity Noted Date Comments Penicillins Diarrhea 02/04/2015 documented as of this encounter (statuses as of 05/22/2020) Medications Medication Sig Dispensed Refills Start Date End Date Status Levothyroxine Sodium 100 MCG Oral Tablet (LEVOXYL)Indications: Hypothyroidism TAKE 1 TABLET BY MOUTH DAILY. (AT LEAST 30 MIN PRIOR TO BREAKFAST OR OTHER MEDS) 30 Tab 11 04/10/2020 Active documented as of this encounter (statuses as of 05/22/2020) Active Problems Problem Noted Date Hypothyroidism 02/04/2015 Overview: Per OB, tsh=2.5 during PPD positive 01/12/2013 Overview: quantiferon test negative on 06/04/2008. See scanned records. Immunization, BCG 01/02/2013 documented as of this encounter (statuses as of 05/22/2020) Immunizations Name Administration Dates Next Due Seasonal Influenza, Quadriva lent, No Preserve, 6 Mons & Above, IM 01/28/2020,01/26/2019,02/26/2018 Seasonal Influenza, Quadrlilo lent, No Preserve, IM 01/16/2015 TDAP (age [...] Taken Comments Blood Pressure - - Pulse 60 05/22/2020 1:58 PM EST Temperature 36.8 C (98.3 F) 05/22/2020 1:58 PM ES T Respiratory Rate - - Oxygen Saturation - - Inhaled Oxygen Concentration - - Weight - - Height - - Body Mass Index - - documented in this encounter Progress Notes * Shannon Huang PA-C - 05/22/2020 2:16 PM EST HPI: Michael Orellana is a 34 year old female who presents to clinic for evaluation of rash on right calf and chapin. Noticed it on 05/19/2020. Has been putting hydrocortisone on it and seems to be improving. Mildly itchy. Scratches it at night. Went hiking on 05/17/2020 and was concerned for tick bite. Did not see any tics. Did not really check either. Denies any fevers, chills, nausea, vomiting, headache, joint pain, systemic symptoms. Daughter has eczema. No lesions elsewhere. ROS: See HPI for positives and negatives. [...] BREAKFAST OR OTHER MEDS) 30 Tab 11 There are no exam notes on file for this visit. EXAM: Pulse 60 | Temp 36.8 C (98.3 F) (Tympanic) General: Patient is a 34-year-old female who is awake alert and oriented x3. Patient is well appearing and in no acute distress. Skin: 1jun2ws light pink annular scaling patch on the posterior right calf and right mid chapin. No central clearing. No surrounding erythema or drainage. HEENT: Head is atraumatic, normocephalic. PERRLA. Sclerae anicteric. Tongue is midline. Mucous membranes moist. Neck is supple. No lymphadenopathy. Cardiovascular: Regular rate and rhythm. S1 and S-2 appreciated. No murmurs. Lungs: Clear to auscultation bilaterally. No wheezes, rales, rhonchi. Abdomen: Soft, nontender, nondistended. Extremities: Well perfused. No peripheral edema. Neuro: Normal gait. Psych: Appropriate mood and affect. ASSESSMENT/PLAN Eczema, unspecified type (Primary) Recommend Vaseline and continuing with hydrocortisone cream. We discussed concerning signs and symptoms that require re-evaluation. Follow-up with PCP for routine care or sooner p.r.n. There are no Patient Instructions on file for this visit. Shannon Huang PA-C Family Practice [address] [place] [address] This chart was completed in part utilizing [employer] Speech Voice Recognition Software. Grammatical errors, random word insertions, prounoun errors, and incomplete sentences are an occasional consequence of this system due to software limitations, ambient noise, and hardware issues. Any formal questions or concerns about the content, text, or information contained within the body of this dictation should be directly addressed to the provider for clarification. documented in this encounter Plan of Treatment [...] as of this encounter Visit Diagnoses Diagnosis Eczema, unspecified type- Primary documented in this encounter Advance Directives Documents on File Type Date Recorded Patient Courtesy Bus Driver Expl 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 Advanced Directive Advanced Directive Advanced Directive Advanced Directive Advanced Directive"
--- OUTSIDE RECORDS SUMMARY | 2022-12-23 01:44 | External Medical Summary | Summary of Care ---
Author Name Unknown Organization [place] [address] Care Team Providers Care Ball Fringe Machine Operator Name Role Phone Unavailable Primary Care Provider Unavailabl e Reason for Visit * Reason Comments Follow Up Encounter Details Date Type Department Care Team Description 11/03/2020 Office Visit Ophthalmology, [facility] [address] [place] [address] Cam Worley, DO [address] [place] [address] Meibomian gland dysfunction (MGD) of both eyes*; Rosacea Allergies Active Allergy Reactions Severity Noted Date Comments Penicillins Diarrhea 02/04/2015 documented as of this encounter (statuses as of 11/03/2020) Medications Medication Sig Dispensed Refills Start Date End Date Status Levothyroxine Sodium 100 MCG Oral Tablet (LEVOXYL)Indications :Hypothyroidism TAKE 1 TABLET BY MOUTH DAILY. (AT LEAST 30 MIN PRIOR TO BREAKFAST OR OTHER MEDS) 30 Tab 11 04/10/2020 Active Doxycycline Hyclate 50 MG Oral Capsule (Vibramycin) Take 1 Cap by mouth daily for 45 days. 45 Cap 0 10/07/2020 11/21/2020 Active documented as of this encounter (statuses as of 11/03/2020) Active Problems Problem Noted Date Hypothyroidism 02/04/2015 Overview: Per OB, tsh=2.5 during PPD positive 01/12/2013 Overview: quantiferon test negative on 06/04/2008. See scanned records. Immunization, BCG 01/02/2013 documented as of this encounter (statuses as of 11/03/2020) Immunizations Name Administration Dates Next Due COVID-19 [...] encounter Progress Notes * Cam Worley, - 11/03/2020 9:21 AM EDT Michael Orellana is a 34 year old female who returns for eyelid evaluation. Pt rpeorts recurrent styes OU and treated with compresses oral abx and tobradex with improvement frustrated. MGD and rosacea noted. Lid hygiene and doxy in use. Sun protection in use. Tolerated well mild GI issues using probiotic. feeling better Ophthalmology Past History: contact lenses Ophthalmology Family History: none Ophthalmology ROS: Positive for stye OU and no recent significant change in vision,no eye pain, redness, discharge,no diplopia Current Ophthalmic Medications: doxy and lid hygiene EXAM: Base Eye Exam Visual Acuity [...] 1. reassurance 2. Daily lid hygiene 3. Doxy for 4 weeks then stop will trial hiatus 4. 6 week return Cam Worley DO documented in this encounter Nursing Notes * Simi Rosas TECH - 11/03/2020 9:18 AM EDT Michael Orellana is a 35 year old female who presents for follow up. Last Office/Telemedicine Visit: 10/07/2020 She currently states she is having no problems. Are you diabetic? No Current Ophthalmic Medications: None Patient's name preference 'Akilah' Do you have Thyroid Disease? yes Did not dilate. documented in this encounter Plan of Treatment Upcoming Encounters Date Type Specialty Care Team Description 12/15/2020 Office Visit Ophthalmology Cam Worley DO [address] [place] [address] 09/29/2021 Office Visit Dermatology Sue Abraham PA-C [address], [place] [id number] Health Maintenance Due Date Last Done Comments [...] Documents on File Type Date Recorded Patient Senior Data Quality Analyst Expl 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 Advanced Directive Advanced Directive Advanced Directive Advanced Directive Advanced Directive Advanced Directive Advanced Directive Advanced Directive Advanced Directive Advanced Directive Advanced Directive Advanced Directive Advanced Directive Advanced Directive Advanced Directive Advanced Directive
--- OUTSIDE RECORDS SUMMARY | 2022-12-23 01:44 | External Medical Summary | Summary of Care ---
Author Name Unknown Organization [place] [address] Care Team Providers Care Media Production Operator Name Role Phone Angie BAGLEY, , Donald Duggan Primary Care Pro vider Reason for Visit * Reason Comments Rash bullseyes rash on ba ck of lower leg. starting to fade. Pics sent to Dr. Adams in [facility]. Encounter Details Date Type Department Care Team Description 05/22/2020 Office Visit Family Practice [facility] [address] [facility] [place] [address] Reina Xie, Shannon Bledsoe PA-C [address] [place] [address] Eczema, unspecified type* Allergies Active [...] documented in this encounter Progress Notes * Reina Xie, Shannon Bledsoe PA-C - 05/22/2020 2:16 PM EST HPI: [...] appearing and in no acute distress. Skin: [id number] light pink annular scaling patch on the [...] file for this visit. Shannon Huang PA-C [address] [place] [address] This chart was completed in part utilizing [employer] Speech Voice Recognition Software. Grammatical errors, random [...] Documents on File Type Date Recorded Patient Crap Shooter Expl 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 Advanced Directive Advanced Directive Advanced Directive Advanced Directive Advanced Directive"
--- OUTSIDE RECORDS SUMMARY | 2022-12-23 01:44 | External Medical Summary | Summary of Care ---
Author Name Unknown Organization [place] [address] Care Team Providers Care Make Up Operator Helper Name Role Phone Unavailable Primary Care Provider Unavailabl e Reason for Visit * Reason Comments NEW PATIENT changing lesion R ne ck x 1 year, get itchy/irritated and catches on clothes * Evaluate & Treat - Unlimited Visits (Within 30 days (routine)) Status Reason Specialty Diagnoses / Procedures Referred By Contact Referred To Contact Pending Review Specialty Services Required Dermatology Diagnoses Skin mole Donald Adams MD [address] [place] [address] [place] [address] Encounter Details Date Type Department Care Team Description [facility] [address] [place] [address] Sue Abraham PA-C [address] [place] [address] Neoplasm of uncertain behavior of skin* Allergies Active Allergy Reactions Severity Noted Date Comments Penicillins Diarrhea 02/04/2015 documented as of this encounter (statuses as of 09/25/2020) Medications Medication Sig Dispensed Refills Start Date [...] as of this encounter (statuses as of 09/25/2020) Active Problems Problem Noted Date Hypothyroidism 02/04/2015 Overview: Per OB, tsh=2.5 during PPD positive 01/12/2013 Overview: quantiferon test negative on 06/04/2008. See scanned records. Immunization, BCG 01/02/2013 documented as of this encounter (statuses as of 09/25/2020) Immunizations Name Administration Dates Next Due COVID-19 [...] this encounter Patient Instructions * Patient Instructions* Sue Abraham PA-C - 09/25/2020 3:26 PM EDT WOUND CARE INSTRUCTIONS: CHANGE DRESSING ONCE DAILY 1. Wash hands and remove the original dressing(s) in 12-24 hours. 2. Gently clean wound(s) with soap and water. Rinse with water and pat the wound dry. 3. Apply a thin layer of Vaseline ointment with a Q-tip. 4. Cover with a bandage if area(s) is not on the face or scalp. A dressing is not required on the face or scalp. Use non-adherent dressing and paper tape if you are sensitive to band-aid adhesive sensitive. * Place dressing on site for 2 weeks, until healed. NOTE: Lower legs always take at least 1 monthto heal (can be more depending on other medical conditions). *If going swimming, please place waterproof bandage on top of wound site WHAT TO EXPECT AFTER BIOPSY or EXCISION: 1. Swelling and redness may occur around the wound for several days. If the procedure(s) was aroundthe eye, skin around the eyes is often quite swollen and discolored for several days. 2. Shave biopsy sites will have a yellow fibrous center and red rim surrounding it. 3. Drainage is to be expected. The drainage may be yellow-green and have a slight odor. As long as the wound itself is healing, you do not have to be concerned about the drainage. 4. If bleeding occurs, apply FIRM CONSTANT PRESSURE to the dressing with fingertips and a dry, clean wash cloth for 20 - 30 minutes. No peeking to see if bleeding has stopped. 5. If you have any concerns about the healing wound, please either or our main Dermatology office in [place] at [phone]. If an emergency, please go to your nearest Emergency Department. SUNSCREEN USE AND SUN PROTECTION: 1. The best protection is sun avoidance. Seek shade if you can, especially between 10am to 4pm (peak sun hours). 2. Use sunscreen with an SPF (Sun Protection Factor - the number on most sunscreen bottles) of 30 or more that protects from Ultraviolet A (UVA) and Ultraviolet B (UVB) wavelength light (strongly recommend SPF 50). This is referred to as broad spectrum sun protection because it protects from most wa velengths in both spectrums of UVA and UVB light. Unfortunately, even though the protection is broad it is not complete, therefore making sun avoidance the best protection. UVB and UVA have both beenimplicated in causing skin cancers. Older sunscreens only protected from UVB and sunscreens with added UVA protection should contain Titanium dioxide, Zinc oxide, or Avobenzone. Other oil free, non-comedogenic lotion with SPF 30 or greater is fine. 3. Use sun protection if outside for 15 minutes or more. Apply 20-30 minutes before going out and reapply every 1-2 hours. No sunscreen is truly water ''proof'' and it will wash away with sweat, swimming and rubbing. 4. Wear tightly woven, loose fitting (cooler) long sleeved clothing, UV-blocking sun glasses (eyes need protection as well) and wide-brimmed hatwear (no straw hats with holes because light still getsthrough). Strongly recommended *Neutrogena Pure and Free Baby SPF 60 (have separate face and body lotions) orCeraVe AM facial lotion (with SPF 30). If looking for non toxic alternatives-look for non-libia particle zinc. Product examples; Think sport, Think baby, [place], AppSheet botanicalPaperless Post, [employer], [place] baby. "Baby" products can be used for all ages. documented in this encounter Progress Notes * Vick Morgan MD - 09/25/2020 3:36 PM EDT I have seen and examined the patient with Sue Abraham PA-C. I have reviewed and agree with the assessment and plan. Vick Morgan MD 09/25/2020 3:36 PM * Sue Abraham PA-C - 09/25/2020 3:15 PM EDT NOTE: This encounter occurred during SARS-CoV-2 pandemic SUBJECTIVE: HPI: Michael Orellana is a 34 year old female seen at the request of Donald Adams MD for evaluation and treatment of lesion. Pt. declined full skin exam. + Tanning bed history (high school). + Blistering sunburns (2 times). Lesion on R neck, present constantly for 1 year. Itchy, irritated and catches on clothing, crusts and now is the smallest it typically is. Tried OTC hydrocortisone without much improvement. Desires removal. 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 REVIEW OF SYSTEMS: SKIN: No other new or changing moles. HEME/LYMPH: No new or enlarging lumps or bumps. CONSTITUTIONAL: No nausea, vomiting, fevers, chills, diarrhea. No recent unintended weight loss, night sweats, appetite or malaise. RESP: negative MSK/EXT: Negative or as per HPI GI: negative CV: Negative or as per HPI Rest of systems are negative or as per HPI Personal hx of Skin Cancer: None Reviewed all [facility] Dermatology pathology reports and clinic notes as well as those sent by referring provider prior to seeing pt. No past medical history on file. FAMILY HISTORY: Skin CA: None Skin Disorders: none SOCIAL HISTORY: Social History Tobacco Use Smoking status: Never Smoker Smokeless tobacco: Never Used Substance Use Topics Alcohol use: No Vaping/E-Cigarette Use Vaping/E-Cigarette Substances Vaping/E-Cigarette Devices MEDICA TIONS: Current Outpatient Medications Medication Sig Dispense Refill methylPREDNISolone 4 MG Oral Tablet Therapy Pack (Medrol Dosepack) follow package directions 21 Tab0 Sulfamethoxazole-Trimethoprim 800-160 MG Oral Tablet (Bactrim DS) Take 1 Tab by mouth 2 times a dayfor 10 days. Until gone. 20 Tab 0 Tobramycin-Dexamethasone 0.3-0.1 % Ophthalmic Suspension (TobraDex) Instill 1 Drop into eye 4 timesa day for 14 days. In affected eye(s) until symptoms resolved. 5 mL 0 Levothyroxine Sodium 100 MCG Oral Tablet (LEVOXYL) TAKE 1 TABLET BY MOUTH DAILY. (AT LEAST 30 MIN PRIOR TO BREAKFAST OR OTHER MEDS) 30 Tab 11 ALLERGY: Penicillins OBJECT JACKSON: GEN: alert, no distress, appears oriented, pleasant and cooperative. SKIN: Detailed exam of neck completed: 1A. R distal neck-5x4mm variegated brown smooth adherent papule. ASSESS MENT/PLAN: 1A. Favor ISK, r/o atypia on R distal neck-Shave removal of the lesion noted above to remove and confirm diagnosis. The procedure, risks including but not limited to; (scarring, bleeding, infection, pain, and bruising), benefits, alternatives and expected outcomes were discussed with the patient, and obtained verbal consent from pt. Time out called. Patient identified, procedure verified, site identified and verified. Patient and staff present in agreement. Area prepped with alcohol and anesthetized using 1cc of 0.5% lidocaine with epinephrine at 1:200,000 concentration. Shave of lesion performed. 20% AlCl and bandaging applied. Specimen sent to pathology. Patient instructed in routine post-op care. Patient alone today. Photo(s) of #1 taken, pt verbally consented to having photo(s) taken. Follow-up: 1 year for full skin exam Contact patient via cell phone Ok to leave results on message: Yes Able to speak to none Patient Phone Numbers Photos and chart reviewed by Dr. Vick Morgan. Presum ed diagnoses, expected natural histories, and management options discussed with the patient at length. Questions were addressed and anticipatory guidance provided. They were instructed to contact me if additional questions, concerns, or problems develop in the interim. -There were no barriers to learning and no other pain was related to today's visit. The patient and/or person accompanying patient demonstrates understanding of the visit and treatment. Sue Abraham PA-C 09/25/2020 3:15 PM Ref: JANET DONALD VENTURAZHUGH[[id number]] [address] [facility] [place] [address] (office) [phone] (fax) PCP: None documented in this encounter Nursing Notes * Layla Stringer LPN - 09/25/2020 3:08 PM EDT Patient identified by full name and date of . Chief Complaint Patient presents with NEW PATIENT changing lesion R neck x 1 year, get itchy/irritated and catches on clothes documented in this encounter Plan of Treatment Upcoming Encounters Date Type Specialty Care Team Description 10/08/2020 Office Visit Ophthalmology Cam Worley, [address] [place] [phone] 09/29/2021 Office Visit Dermatology Sue Abraham PA-C [address] [place] [address] Scheduled Orders Name Type Priority Associated Diagnoses Orde r Schedule SURGICAL PATHOLOGY Pathology Routine Neoplasm of uncertain behavior of skin Ordered: 09/25/2020 Health Maintenance Due Date Last Done Comments [...] Procedure Name Priority Date/Time Associated Diagnosis Comments DERM IMAGE (SITE) Routine 09/25/2020 Neoplasm of uncertain behavior of skin documented in this encounter Results * DERM IMAGE (SITE) (09/25/2020) Specimen Narrative Performed At documented in this encounter Visit Diagnoses Diagnosis Neoplasm of uncertain behavior of skin- Primary documented in this encounter Advance Directives Documents on File Type Date Recorded Patient Color Control Supervisor Expl 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 Advanced Directive Advanced Directive Advanced Directive Advanced Directive Advanced Directive Advanced Directive Advanced Directive Advanced Directive Advanced Directive Advanced Directive Advanced Directive Advanced Directive
--- OUTSIDE RECORDS SUMMARY | 2022-12-23 01:44 | External Medical Summary | Summary of Care ---
Author Name Unknown Organization [facility] Address [place] [address] Care Team Providers Care Mine Superintendent Name Role Phone Unavailable Primary Care Provider Unavailabl e Reason for Visit * Reason Onset Date Comments COVID-19 Screening 07/10/2020 Encounter Details Date Type Department Care Team Description 07/10/2020 Pandemic Screening COVID19 Screening, [place] [address] [facility] [place] [address] [place], [facility] [place] [phone] Suspected 2019 novel coronavirus infection* Allergies Active [...] 09/25/2020 Office Visit Dermatology Sue Abraham PA-C [address] [place] [address] Scheduled Orders Name Type Priority [...] Documents on File Type Date Recorded Patient Directory Operator Expl 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 Advanced Directive Advanced Directive Advanced Directive Advanced Directive Advanced Directive Advanced Directive Advanced Directive Advanced Directive
--- OUTSIDE RECORDS SUMMARY | 2022-12-23 01:44 | External Medical Summary | Summary of Care ---
Author Name Unknown Organization [facility] Address [place] [address] Care Team Providers Care Section Forest Fire Warden Name Role Phone Unavailable Primary Care Provider Unavailabl e Reason for Visit * Reason Onset Date Comments COVID-19 Screening 07/08/2020 Encounter Details Date Type Department Care Team Description 07/08/2020 Pandemic Screening [facility] [place] [address] [facility] [address] [place] [place] [address] Patient left without being seen* Allergies Active Allergy Reactions Severity Noted Date Comments Penicillins Diarrhea 02/04/2015 documented as of this encounter (statuses as of 07/13/2020) Medications Medication Sig Dispensed Refills Start Date End Date Status Levothyroxine Sodium 100 MCG Oral Tablet (LEVOXYL)Indications: Hypothyroidism TAKE 1 TABLET BY MOUTH DAILY. (AT LEAST 30 MIN PRIOR TO BREAKFAST OR OTHER MEDS) 30 Tab 11 04/10/2020 Active documented as of this encounter (statuses as of 07/13/2020) Active Problems Problem Noted Date Hypothyroidism 02/04/2015 Overview: Per OB, tsh=2.5 during PPD positive 01/12/2013 Overview: quantiferon test negative on 06/04/2008. See scanned records. Immunization, BCG 01/02/2013 documented as of this encounter (statuses as of 07/13/2020) Immunizations Name Administration Dates Next Due Seasonal [...] as of this encounter Progress Notes * Amber Chavez PA-C - 07/08/2020 9:51 AM EDT Patient asymptomatic and exposure was only 3 days ago. Explained she may be testing too early. She declines testing at this time. Will return in two days for testing. documented in this encounter Plan of Treatment Upcoming Encounters Date Type Specialty Care Team Description 09/25/2020 Office Visit Dermatology Sue Abraham PA-C [address] [place] [address] Scheduled Orders Name Type Priority Associated Diagnoses Orde r Schedule SARS-COV-2 (COVID-19), NAAT Lab Routine Patient left without being seen Ordered: 07/08/2020 Health Maintenance Due Date Last Done Comments [...] as of this encounter Visit Diagnoses Diagnosis Patient left without being seen- Primary Surgical or other procedure not carried out because of patient's decision documented in this encounter Advance Directives Documents on File Type Date Recorded Patient Teller Expl 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 Advanced Directive Advanced Directive Advanced Directive Advanced Directive Advanced Directive Advanced Directive Advanced Directive Advanced Directive
--- OUTSIDE RECORDS SUMMARY | 2022-12-23 01:44 | External Medical Summary | Summary of Care ---
Author Name Unknown Organization [place] [address] Care Team Providers Care Air Bag Curer Name Role Phone Donald Gonzales MD Primary Care Provide r Reason for Visit * Reason Comments Medication Refill Encounter Details Date Type Department Care Team Description 11/16/[address] [facility] [address] [facility] [place] [address] Donald Gonzales MD [address] [place] [address] Hypothyroidism Allergies Active Allergy Reactions Severity Noted Date Comments Penicillins Diarrhea 02/04/2015 documented as of this encounter (statuses as of 11/16/2019) Medications Medication Sig Dispensed Refills Start Date End Date Status methylPREDNISolone (MEDROL DOSEPACK) 4 MG TBPKIndications:Bl epharitis of left upper eyelid, unspecified type follow package directions 21 Tab 0 06/13/2019 Active levothyroxine (LEVOXYL) 100 MCG TabletIndications: Hypothyroidism TAKE 1 TABLET BY MOUTH DAILY. (AT LEAST 30 MIN PRIOR TO BREAKFAST OR OTHER MEDS) 30 Tab 11 11/16/2019 Active levothyroxine (LEVOXYL) 100 MCG TabletIndications: Hypothyroidism TAKE 1 TABLET BY MOUTH DAILY. (AT LEAST 30 MIN PRIOR TO BREAKFAST OR OTHER MEDS) 30 Tab 11 11/24/2018 11/16/2019 Discontinued (Refill) documented as of this encounter (statuses as of 11/16/2019) Active Problems Problem Noted Date Hypothyroidism 02/04/2015 Overview: Per OB, tsh=2.5 during PPD positive 01/12/2013 Overview: quantiferon test negative on 06/04/2008. See scanned records. Immunization, BCG 01/02/2013 documented as of this encounter (statuses as of 11/16/2019) Immunizations Name Administration Dates Next Due Seasonal [...] Miscellaneous Notes * Telephone Encounter - Donald Gonzales MD - 11/16/2019 1:12 PM EDT Signed Prescriptions: Disp Refills levothyroxine (LEVOXYL) 100 MCG Tablet 30 Tab 11 Sig: TAKE 1 TABLET BY MOUTH DAILY. (AT LEAST 30 MIN PRIOR TO BREAKFAST OR OTHER MEDS) Authorizing Provider: DONALD GONZALES * Telephone Encounter - Sandeep Cabrera OSA - 11/16/2019 12:07 PM EDT Pending Prescriptions: Disp Refills levothyroxine (LEVOXYL) 100 MCG Tablet 30 Tab 11 Sig: TAKE 1 TABLET BY MOUTH DAILY. (AT LEAST 30 MIN PRIOR TO BREAKFAST OR OTHER MEDS) Last Office/Telemedicine Visit: 06/13/2019 Next Office Visit: No Future Appointments If no future appointments scheduled, and last appointment is greater than a year ago, please schedule patient for a follow-up appointment Last date the medication was ordered: 09/10/2019 Pharmacy: [id number] [address] [facility] Is this request for a controlled substance?No Urine Drug Screen:No results found for this or any previous visit. Patient Phone Numbers Labs: Lab Results Component Value Date/Time TSH 2.46 11/24/2018 10:26 AM documented in this encounter Plan of Treatment Health Maintenance Due Date Last Done Comments PAP SMEAR-EVERY 3 YRS,AGES 21-65 02/10/2019 02/11/2016, 02/19/2014 Influenza Vaccine (FLU shot) (#1) 2019 01/26/2019, 02/26/2018, 01/16/2015 DTaP,Tdap,and Td Vaccines (2 - Td) 10/20/2025 [...] Documents on File Type Date Recorded Patient Stapler Machine Expl 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 Advanced Directive Advanced Directive
--- OUTSIDE RECORDS SUMMARY | 2022-12-23 01:44 | External Medical Summary | Summary of Care ---
Author Name Unknown Organization [place] [address] Care Team Providers Care Virtualization Consultant Name Role Phone Donald Adams MD Primary Care Provide r Reason for Visit * Reason Comments Sore Throat hurts to swallow x 2 wks, a little tired from coughing at night Encounter Details Date Type Department Care Team Description 03/07/2019 Office Visit [facility] [address] Jessica Damon [facility]C [facility] [id number] Acute tonsillitis, unspecified etiology* Allergies Active Allergy Reactions Severity Noted Date Comments Penicillins Diarrhea 02/04/2015 documented as of this encounter (statuses as of 03/07/2019) Medications Medication Sig Dispensed Refills Start Date End Date Status levothyroxine (LEVOXYL) 100 MCG TabletIndications:H ypothyroidism TAKE 1 TABLET BY MOUTH DAILY. (AT LEAST 30 MIN PRIOR TO BREAKFAST OR OTHER MEDS) 30 Tab 11 11/24/2018 Active Phenazopyridine HCl (PYRIDIUM) 200 MG TabletIndications:U rinary tract infection with hematuria, site unspecified Take 1 Tab by mouth 3 times a day as needed for Pain. After meals for pain with urination 6 Tab 0 01/12/2019 Active Additional information Patient not taking. Reported on 03/07/2019 4:41 PM cefdinir (OMNICEF) 300 MG CapsuleIndications: Acute tonsillitis, unspecified etiology Take 1 Cap by mouth every 12 hours for 10 days. For 10 days. 20 Cap 0 03/07/2019 03/17/2019 Active predniSONE (DELTASONE) 20 MG TabletIndications:A cute tonsillitis, unspecified etiology Take 2 Tabs by mouth daily for 5 days. 10 Tab 0 03/07/2019 03/12/2019 Active documented as of this encounter (statuses as of 03/07/2019) Active Problems Problem Noted Date Hypothyroidism 02/04/2015 Overview: Per OB, tsh=2.5 during PPD positive 01/12/2013 Overview: quantiferon test negative on 06/04/2008. See scanned records. Immunization, BCG 01/02/2013 documented as of this encounter (statuses as of 03/07/2019) Immunizations Name Administration Dates Next Due Seasonal [...] Sign Reading Time Taken Comments Blood Pressure 135/58 03/07/2019 4:40 PM EST Pulse 60 03/07/2019 4:40 PM EST Temperature 37.2 C (99 F) 03/07/2019 4:40 PM EST Respiratory Rate 16 03/07/2019 4:40 PM EST Oxygen Saturation - - Inhaled Oxygen Concentration - - Weight 74.4 kg (164 lb) 03/07/2019 4:40 PM EST Height - - Body Mass Index 26.47 01/12/2019 6:42 PM EDT documented in this encounter Progress Notes * Jessica Damon PA-C - 03/07/2019 4:50 PM EST Subjective Michael Orellana is a 33 year old female. Chief Complaint Patient presents with Sore Throat hurts to swallow x 2 wks, a little tired from coughing at night HPI: 2 weeks sore throat. Cough at night. Pain with swallowing. Noticed white chunks in her tonsil.Low grade fever. No abdominal pain, nvd. PMH: Patient Active Problem List Diagnosis Code Immunization, BCG Z23 PPD positive R76.11 Hypothyroidism E03.9 Current Outpatient Medications Medication Sig Dispense Refill levothyroxine (LEVOXYL) 100 MCG Tablet TAKE 1 TABLET BY MOUTH DAILY. (AT LEAST 30 MIN PRIOR TO BREAKFAST OR OTHER MEDS) 30 Tab 11 Phenazopyridine HCl (PYRIDIUM) 200 MG Tablet Take 1 Tab by mouth 3 times a day as needed for Pain. After meals for pain with urination (Patient not taking: Reported on 03/07/2019) 6 Tab 0 No past medical history on file. 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 Social Needs Financial resource strain: Not on file Food insecurity: Worry: Never true Inability: Never true Transportation needs: Medical: Not on file Non-medical: Not on file Tobacco Use Smoking status: Never Smoker Smokeless tobacco: Never Used Substance and Sexual Activity Alcohol use: No Drug use: No Sexual activity: Not on file Lifestyle Physical activity: Days per week: Not on file Minutes per session: Not on file Stress: Not on file Relationships Social connections: Talks on phone: Not on file Gets together: Not on file Attends mandaen service: Not on file Active member of club or organization: Not on file Attends meetings of clubs or organizations: Not on file Relationship status: Not on file Intimate partner violence: Fear of current or ex partner: Not on file Emotionally abused: Not on file Physically abused: Not on file Forced sexual activity: Not on file Other Topics Concern Not on file Social History Narrative Not on file Review of Systems Constitutional: Positive for fever. Negative for chills. HENT: Positive for sore throat. Negative for congestion, postnasal drip, sinus pressure and sinus pain. Respiratory: Positive for cough. Negative for shortness of breath and wheezing. Gastrointestinal: Negative for abdominal pain, nausea and vomiting. Objective BP 135/58 | Pulse 60 | Temp (Src) 99 (Tympanic) | Resp 16 | Wt 164 lbs (74.390kg) | BMI 26.47 kg/m | BSA 1.86 m Physical Exam Vitals signs and nursing note reviewed. Constitutional: General: She is not in acute distress. Appearance: She is well-developed and normal weight. She is not ill-appearing, toxic-appearing or diaphoretic. HENT: Head: Normocephalic and atraumatic. Right Ear: Tympanic membrane and ear canal normal. Left Ear: Tympanic membrane and ear canal normal. Mouth/Throat: Mouth: Mucous membranes are moist. Comments: Right tonsillith with surrounding erythema and slight edema No uvula deviation, no obvious SPRINKLER INSPECTOR Neck: Musculoskeletal: Normal range of motion and neck supple. Comments: Fullness of thyroid (patient reports having US in the past) Cardiovascular: Rate and Rhythm: Normal rate and regular rhythm. Heart sounds: No murmur. No friction rub. No gallop. Pulmonary: Effort: Pulmonary effort is normal. Breath sounds: Normal breath sounds. No stridor. No wheezing or rales. Neurological: Mental Status: She is alert. ASSESSMENT/PLAN: Acute tonsillitis, unspecified etiology (Primary) - cefdinir (OMNICEF) 300 MG Capsule; Take 1 Cap by mouth every 12 hours for 10 days. For 10 days. - predniSONE (DELTASONE) 20 MG Tablet; Take 2 Tabs by mouth daily for 5 days. - ANCILLARY GRPA STREP negative tonsillith with surrounding erythema and inflammation Will treat with prednisone and omnicef Recheck if no improvement in 3-4 days Call or return to clinic prn if these symtoms worsen or fail to improve as anticipated. Jessica Damon PA-C documented in this encounter Nursing Notes * Reanna Elliott, RN - 03/07/2019 4:41 PM EST The patient has been properly identified by confirmation of name and date of . Chief Complaint Patient presents with Sore Throat hurts to swallow x 2 wks, a little tired from coughing at night documented in this encounter Plan of Treatment Health Maintenance Due Date Last Done Comments *DEPRESSION SCREENING,ANNUAL FOR PTS 12 AND OVER 05/22/2014 PAP SMEAR-EVERY 3 YRS,AGES 21-65 02/10/2019 02/11/2016, 02/19/2014 DTaP,Tdap,and Td Vaccines (2 - Td) 10/20/2025 10/21/2015 Influenza Vaccine (FLU shot) Completed 07/2018, 02/26/2018, 01/16/2015 MENINGOCOCCAL (MENACTRA) Aged Out No longer eligible based on patient's age to complete this topic Pneumococcal Vaccine: Pediatrics (0 to 5 Years) and At-Risk Patients (6 to 64 Years) Aged Out No longer eligible b ased on patient's age to complete this topic documented as of this encounter Implants Not on filedocumented as of this encounter Procedures Procedure Name Priority Date/Time Associated Diagnosis Comments ANCILLARY GRPA STREP Routine 03/07/2019 Acute tonsillitis, unspecified etiology documented in this encounter Results * ANCILLARY GRPA STREP (03/07/2019) GRP A STREP EIA AT neg NEG - NEG [facility] PROCESSING PROCED CONTROL VALID? Yes [facility] PROCESSING LOT NUMBER [id number] [facility] [employer] LAB PROCESSING EXPIRATION DATE 02/23/20 [facility] Alcar[facility] AB PROCESSING Specimen Performing Organization Address City/State/Zipcod e Phone Number [facility], [address] [facility] [place] [address] documented in this encounter Visit Diagnoses Diagnosis Acute tonsillitis, unspecified etiology- Primary documented in this encounter Advance Directives Documents on File Type Date Recorded Patient Hospital Coordinator Expl 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 Advanced Directive Advanced Directive"
--- OUTSIDE RECORDS SUMMARY | 2022-12-23 01:44 | External Medical Summary ---
Author Name Unknown Address [facility] [place] [address] Phone Organization K01:[place] [address] [address] [place] [id number] Laboratory Report Ordering Provider Test Date Status JANET BLANCA 04/10/2020 14:18:00 Final Observation Date Value Abnormality Reference (Units ) Status TSH 04/10/2020 22:13 0.55 0.27-4.2 (uIU /mL) Final T4, Free 04/10/2020 22:13 NOT APPLICABLE 0.9-1.7 (ng/dL) Final Performing Location [address] [address]
--- OUTSIDE RECORDS SUMMARY | 2022-12-23 01:44 | External Medical Summary | Summary of Care ---
Author Name Unknown Organization [place] [address] Care Team Providers Care Ceramic Capacitor Processor Name Role Phone Unavailable Primary Care Provider Unavailabl e Reason for Visit * Reason Onset Date Comments MyCode - Took Form To Consider 09/16/2020 Encounter Details Date Type Department Care Team Description 09/16/2020 Orders Only Outcomes Research Department [address] [place] [address] Savannah Alfred CHRA MyCode Nonconsent Documentation Allergies [...] mRNA, LNP-s, No Pre serve, 2-Dose Series ([employer] Systems) 07/19/2020,06/28/2020 Seasonal Influenza, Quadriva lent, No Preserve, [...] Progress Notes * Savannah Alfred CHRA - 09/16/2020 8:03 AM EDT MyCode Nonconsent Documentation Michael Orellana was approached in the clinic regarding participation in the MyCode Project and did not consent. documented in this encounter Plan of Treatment Upcoming Encounters Date Type Specialty Care Team Description 09/25/2020 Office Visit Dermatology Sue Abraham PA-C [address] [place] [address] Health Maintenance Due Date Last Done Comments [...] Documents on File Type Date Recorded Patient Parts Room Associate Expl 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 Advanced Directive Advanced Directive Advanced Directive Advanced Directive Advanced Directive Advanced Directive Advanced Directive Advanced Directive Advanced Directive
--- OUTSIDE RECORDS SUMMARY | 2022-12-23 01:44 | External Medical Summary | Summary of Care ---
Author Name Unknown Organization [place] [address] Care Team Providers Care Stain Applicator Name Role Phone Unavailable Primary Care Provider [...] Services Required Dermatology Diagnoses Skin mole Donald Gonzales MD [address] [place] [address] [place] [address] Encounter Details Date Type Department Care Team Description [facility] [address] [place] [address] Sue Abraham PA-C [address] [place] [address] Neoplasm of uncertain behavior of [...] either or our main Dermatology office in [place] at [phone]. If an emergency, please go to your [...] zinc. Product examples; Think sport, Think baby, [place], [employer], [place], [place] baby. "Baby" products can be used for all ages. documented in this encounter Progress Notes * Sue Abraham PA-C - 09/25/2020 3:15 PM EDT NOTE: This encounter occurred during SARS-CoV-2 pandemic SUBJECTIVE: HPI: Michael Orellana is a 34 year old female seen at the request of Donald Gonzales MD for evaluation and treatment of lesion. Pt. declined full skin exam. + Tanning bed history (high school). + Blistering sunburns (2 times). Lesion on R neck, present constantly for 1 year. Itchy, irritated and catches on clothing, crusts and now is the smallest it typically is. Tried OTC hydrocortisone without much improvement. Desires removal. 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 REVIEW OF SYSTEMS: SKIN: No other new [...] hx of Skin Cancer: None Reviewed all [facility] Dermatology pathology reports and clinic notes [...] Sue Abraham PA-C 09/25/2020 3:15 PM Ref: DONALD GONZALES[[id number]] [address] [place], [place] [address] [address] (office) [phone] (fax) PCP: None documented in this encounter [...] Description 10/08/2020 Office Visit Ophthalmology Cam Worley, [address] [place] [address] [phone] 09/29/2021 Office Visit Dermatology Sue Abraham PA-C [address], [place] [id number] Scheduled Orders Name Type Priority Associated Diagnoses [...] as of this encounter Visit Diagnoses Diagnosis Neoplasm of uncertain behavior of skin- Primary documented in this encounter Advance Directives Documents on File Type Date Recorded Patient Full Charge Bookkeeper Expl 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 Advanced Directive Advanced Directive Advanced Directive Advanced Directive Advanced Directive Advanced Directive Advanced Directive Advanced Directive Advanced Directive Advanced Directive Advanced Directive Advanced Directive
--- OUTSIDE RECORDS SUMMARY | 2022-12-23 01:44 | External Medical Summary | Summary of Care ---
Author Name Unknown Organization [place] [address] Care Team Providers Care Die Maker Name Role Phone Unavailable Primary Care Provider Unavailabl e Reason for Referral * Evaluate & Treat - Unlimited Visits (Within 24 hrs (call dept; emergent)) Status Reason Specialty Diagnoses / Procedures Referred By Contact Referred To Contact Pending Review Specialty Services Required Ophthalmology Diagnoses Recurrent blepharitis Danny Thurston MD [address] [place] [address] Question Answer Referral Priority Within 24 hrs (call dept; emergent) Electronically signed by Danny Thurston MD at Reason for Visit * Reason Comments Acute Recurrent redness an d swelling of upper eyelid every other month x 2 years Encounter Details Date Type Department Care Team Description 09/16/2020 Office Visit Family Practice [facility] 132 [place] [address] Danny Thurston MD [address] [place] [address] Recurrent blepharitis* Allergies Active Allergy [...] package directions 21 Tab 0 09/16/2020 Active documented as of this encounter (statuses [...] documented in this encounter Progress Notes * Danny Thurston MD - 09/16/2020 8:21 AM EDT SUBJECTIVE: [...] other complaints were offered at this time. Danny Thurston MD documented in this encounter Plan of Treatment Upcoming Encounters Date Type Specialty Care Team Description 09/25/2020 Office Visit Dermatology Sue Abraham PA-C [address] [place] [address] [phone] 10/13/2020 Office Visit Ophthalmology Cam Worley DO [address] [place] [address] [phone] Scheduled Referrals Name Type Priority Associated Diagnoses [...] Documents on File Type Date Recorded Patient Principal Developer Expl 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 Advanced Directive Advanced Directive Advanced Directive Advanced Directive Advanced Directive Advanced Directive Advanced Directive Advanced Directive Advanced Directive Advanced Directive
--- OUTSIDE RECORDS SUMMARY | 2022-12-23 01:45 | External Medical Summary | Summary of Care ---
Author Name Unknown Organization [place] [address] Care Team Providers Care Arabic Translator Name Role Phone Donald Adams MD Primary Care Provide r Reason for Visit * Reason Comments Medication Administration Flu and/or Pne umo Inj Encounter Details Date Type Department Care Team Description 02/26/2018 Immunization/In jection [place] [facility] [address] W[facility]w, Nurse Fam Prac [facility] [address] Need for prophylactic vaccination and inoculation against influenza* Allergies Active Allergy Reactions Severity Noted Date Comments Penicillins Diarrhea 02/04/2015 as of this encounter Medications Medication Sig Dispensed Refills Start Date End Date Status levothyroxine (LEVOXYL) 100 MCG TabletIndications:Hyp othyroidism TAKE 1 TABLET BY MOUTH DAILY. (AT LEAST 30 MIN PRIOR TO BREAKFAST OR OTHER MEDS) 30 Tab 11 12/02/2017 Active as of this encounter Active Problems Problem Noted Date Hypothyroidism 02/04/2015 Overview: Per OB, tsh=2.5 during PPD positive 01/12/2013 Overview: quantiferon test negative on 06/04/2008. See scanned records. Immunization, BCG 01/02/2013 as of this encounter Immunizations Name Dates Previously Given Next Due Seasonal Influenza, Quadriva lent, No Preserve, 6 [employer] & Above, IM 02/26/2018 Seasonal Influenza, Quadrivalent, No Preserve, I M 01/16/2015 as of this encounter Social History Tobacco Use Types Packs/Day Years Used Date Never Smoker Smokeless Tobacco: Never Used Alcohol Use Drinks/Week oz/Week Comments No Sex Assigned at Date Recorded Not on file Job Start Date Occupation Industry Not on file Not on file Not on file Travel History Travel Start Travel End as of this encounter Progress Notes * Veronica Swain, MARTIN - 02/26/2018 2:26 PM EST PRE - ADMINISTRATION DOCUMENTATION Are you allergic to latex? No Are you experiencing any cold symptoms or fever? No Have you had Guillain-Canal [place] Syndrome (an illness that causes paralysis)? No Have you had the flu shot in the past? YES Have you ever had a reaction to the flu shot? No Veronica Swain MARTIN, 02/26/2018 2:26 PM Immunization Administration Documentation Time Out Procedure Performed: Yes Patient Identified (Ask Name/Date of ): Yes Does the patient have a fever greater than 101 degrees today? No Patient allergic to latex? No VFC Stock: No Immunization(s) verified: Yes, Immunization Name: Flu, VIS Sheet(s) given: Yes Verified Side and Site: Yes Verified Shot(s) with Parent(s)/Patient: Yes in this encounter Plan of Treatment Upcoming Encounters Date Type Specialty Care Team Description 02/26/2018 Immunization/Inj ection Family Medicine Wkend/Gw, Nurse Fam Prac [address] [place] [address] Need for prophylactic vaccination and inoculation against influenza* Health Maintenance Due Date Last Done Comments DTaP,Tdap,and Td Vaccines (1 - Tdap) 10/22/2002 *DEPRESSION SCREENINGANU FOR PTS 18 AND OVER 05/22/2014 *TSH FOR THYROID MEDICATION MONITORING YEARLY 04/04/2016 Influenza Vaccine (FLU shot) (#1) 2017 015 PAP SMEAR-EVERY 3 YRS,AGES 21-65 02/10/2019 02/11/20 16, 02/19/2014 as of this encounter Implants Not on fileas of this encounter Visit Diagnoses Diagnosis Need for prophylactic vaccination and inoculation against influenza- Primary in this encounter Advance Directives Patient has advance care planning documents on file. For more information, please contact: [place] [id number]
--- OUTSIDE RECORDS SUMMARY | 2022-12-23 01:45 | External Medical Summary | Summary of Care ---
Author Name Unknown Organization [place] [address] Care Team Providers Care Link Wire Fabric Machine Operator Name Role Phone Donald Adams MD Primary Care Provide r Reason for Visit * Reason Comments Sore Throat hurts to swallow x 2 wks, a little tired from coughing at night Encounter Details Date Type Department Care Team Description 03/07/2019 Office Visit Family Practice [facility] [address] Jessica Damon [facility]C 132 [facility] [id number] Acute tonsillitis, unspecified etiology* Allergies Active Allergy [...] file Gets together: Not on file Attends caodaism service: Not on file Active member of [...] slight edema No uvula deviation, no obvious SECRETARY OF STATE Neck: Musculoskeletal: Normal range of motion and [...] LAB PROCESSING PROCED CONTROL VALID? 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
--- OUTSIDE RECORDS SUMMARY | 2022-12-23 01:45 | External Medical Summary | Summary of Care ---
Author Name Unknown Organization [place] [address] Phone Care Team Providers Care Test Case Developer Name Role Phone Donald Gonzales MD Primary Care Provide r Reason for Visit * Reason Comments eRx-Medication Refill Encounter Details Date Type Department Care Team Description 05/26/2017 Refill Family Practice [facility] [address] Donald Gonzales MD [address] [place] [address] [phone] Hypothyroidism Allergies Active Allergy Reactions Severity Noted Date Comments Penicillins Diarrhea 02/04/2015 as of this encounter Medications Prescription Sig. Disp. Refills Start Date End Date Status azithromycin (ZITHROMAX Z-JARROD) 250 MG TabletIndications:A cute streptococcal pharyngitis Take two tablets by mouth on first day, then 1 tablet daily until gone 6 Tab 0 01/18/2017 Active levothyroxine (LEVOXYL) 100 MCG TabletIndications:H ypothyroidism TAKE 1 TABLET BY MOUTH DAILY. (AT LEAST 30 MIN PRIOR TO BREAKFAST OR OTHER MEDS) 30 Tab 5 05/26/2017 Active levothyroxine (LEVOXYL) 100 MCG TabletIndications:H ypothyroidism TAKE 1 TABLET BY MOUTH DAILY. (AT LEAST 30 MIN PRIOR TO BREAKFAST OR OTHER MEDS) 30 Tab 5 11/25/2016 05/26/2017 Discontinued as of this encounter Active Problems Problem Noted Date Hypothyroidism 02/04/2015 Overview: Per OB, tsh=2.5 during PPD positive 01/12/2013 Overview: quantiferon test negative on 06/04/2008. See scanned records. Immunization, BCG 01/02/2013 as of this encounter Immunizations Name Dates Previously Given Next Due Seasonal Influenza, Quadrivalent, No Preserve, I M 01/16/2015 as of this encounter Social History Tobacco Use Types Packs/Day Years Used Date Never Smoker Smokeless Tobacco: Never Used Alcohol Use Drinks/Week oz/Week Comments No Sex Assigned at Date Recorded Not on file as of this encounter Miscellaneous Notes * Telephone Encounter - Donald Gonzales MD - 05/26/2017 11:00 AM EST Signed Prescriptions: Disp Refills levothyroxine (LEVOXYL) 100 MCG Tablet 30 Tab 5 Sig: TAKE 1 TABLET BY MOUTH DAILY. (AT LEAST 30 MIN PRIOR TO BREAKFAST OR OTHER MEDS) Authorizing Provider: DONALD GONZALES * Telephone Encounter - Jessica Vega LPN - 05/26/2017 10:54 AM EST Pending Prescriptions: Disp Refills levothyroxine (LEVOXYL) 100 MCG Tablet [P*30 Tab 5 Sig: TAKE 1 TABLET BY MOUTH DAILY. (AT LEAST 30 MIN PRIOR TO BREAKFAST OR OTHER MEDS) * Telephone Encounter - Zulma Marr LPN - 05/26/2017 9:57 AM EST Pending Prescriptions: Disp Refills levothyroxine (LEVOXYL) 100 MCG Tablet [P*30 Tab 5 Sig: TAKE 1 TABLET BY MOUTH DAILY. (AT LEAST 30 MIN PRIOR TO BREAKFAST OR OTHER MEDS) * Telephone Encounter - Zulma Marr LPN - 05/26/2017 9:57 AM EST Pending Prescriptions: Disp Refills levothyroxine (LEVOXYL) 100 MCG Tablet [P*30 Tab 5 Sig: TAKE 1 TABLET BY MOUTH DAILY. (AT LEAST 30 MIN PRIOR TO BREAKFAST OR OTHER MEDS) Last Office Visit: 01/18/2017 Next Office Visit: No Future Appointments Lr 8-3-17 in this encounter Plan of Treatment Health Maintenance Due Date Last Done Comments TETANUS EVERY 10 YRS-TDAP (BOOSTRIX/ADACEL) SUGGESTED IF NOT RECEIVED IN PAST 10/22/2001 *DEPRESSION SCREENINGANU FOR PTS 18 AND OVER 05/22/2014 *TSH FOR THYROID MEDICATION MONITORING YEARLY 04/04/2016 Influenza Vaccine (FLU shot) (#1) 2016 015 PAP SMEAR-EVERY 3 YRS,AGES 21-65 02/10/2019 02/11/20 16, 02/19/2014 as of this encounter Implants Not on fileas of this encounter Visit Diagnoses Diagnosis Hypothyroidism Unspecified hypothyroidism in this encounter Insurance Payer Benefit Plan / Group Subscriber ID Type Phone Address [employer] VELMA [place] [id number] 1 as of this encounter
--- OUTSIDE RECORDS SUMMARY | 2022-12-23 01:45 | External Medical Summary | Summary of Care ---
Author Name Unknown Organization [place] [address] Care Team Providers Care Staff Mine Warfare Officer Name Role Phone Donald Adams MD Primary Care Provide r Reason for Visit * Reason Comments Appointment Encounter Details Date Type Department Care Team Description 03/07/2019 Telephone Family Practice [facility] [address] [facility] [address] Donald Adams MD [address] [facility] [place] [address] Appointment Allergies Active Allergy Reactions Severity Noted Date Comments Penicillins Diarrhea 02/04/2015 documented as of this encounter (statuses as of 03/07/2019) Medications Medication Sig Dispensed Refills Start Date End Date Status levothyroxine (LEVOXYL) 100 MCG TabletIndications:Hyp othyroidism TAKE 1 TABLET BY MOUTH DAILY. (AT LEAST 30 MIN PRIOR TO BREAKFAST OR OTHER MEDS) 30 Tab 11 11/24/2018 Active Phenazopyridine HCl (PYRIDIUM) 200 MG TabletIndications:Uri nary tract infection with hematuria, site unspecified Take 1 Tab by mouth 3 times a day as needed for Pain. After meals for pain with urination 6 Tab 0 01/12/2019 Active documented as of this encounter (statuses [...] encounter Miscellaneous Notes * Telephone Encounter - Iman Maloney OSA - 03/07/2019 1:08 PM EST Reason for patient's call: Sore throat x 2 weeks Caller was transferred to at the nurse line. Nurses not available. 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
--- OUTSIDE RECORDS SUMMARY | 2022-12-23 01:45 | External Medical Summary ---
Author Name Unknown Address [facility] [place] [address] Phone Organization K01:[place] [address] [id number] Laboratory Report Ordering Provider Test Date Status SARAH VARGASHL 11/24/2018 10:26:00 Final Observation Date Value Abnormality Reference Status TSH 11/24/2018 19:28 2.46 0.27-4.2 Fin al T4, Free 11/24/2018 19:28 NOT APPLICABLE 0.9-1.7 Final Performing Location [address] [address]
--- OUTSIDE RECORDS SUMMARY | 2022-12-23 01:45 | External Medical Summary ---
Author Name Unknown Address [facility] [address] Phone Organization K01:[facility] [address] [address] Laboratory Report Ordering Provider Test Date Status JANET BLANCA MD [id number] Final Obs # Observation Date Value Abnormality Reference Status Performing Location 0 TSH [id number] 2.66 0.27-4.2 Final [facility] [address] [facility] [address] 1 FREE T4 REFLEXIVE [id number] NOT APPLICABLE 0.9-1.7 Final [facility] [address] [facility] [address]
--- OUTSIDE RECORDS SUMMARY | 2022-12-23 01:45 | External Medical Summary | Summary of Care ---
Author Name Unknown Organization [place] [address] Care Team Providers Care Telecommunications Support Name Role Phone Donald Adams MD Primary Care Provide r Encounter Details Date Type Department Care Team Description 01/30/2019 Abstract Family Practice [facility] [address] Donald Adams MD 132 [facility] [place] [address] Allergies Active Allergy Reactions Severity Noted Date Comments Penicillins Diarrhea 02/04/2015 documented as of this encounter (statuses as of 01/30/2019) Medications Medication Sig Dispensed Refills Start Date [...] as of this encounter (statuses as of 01/30/2019) Active Problems Problem Noted Date Hypothyroidism 02/04/2015 Overview: Per OB, tsh=2.5 during PPD positive 01/12/2013 Overview: quantiferon test negative on 06/04/2008. See scanned records. Immunization, BCG 01/02/2013 documented as of this encounter (statuses as of 01/30/2019) Immunizations Name Administration Dates Next Due Seasonal [...] Travel End documented as of this encounter Plan of Treatment Health Maintenance Due Date Last Done Comments *DEPRESSION SCREENING,ANNUAL FOR PTS 12 AND OVER 05/22/2014 Influenza Vaccine (FLU shot) (#1) 2018 02/26/2018, 01/16/2015 PAP SMEAR-EVERY 3 YRS,AGES 21-65 02/10/2019 02/11/2016, 02/19/2014 DTaP,Tdap,and Td Vaccines (2 - Td) 10/20/2025 10/21/2015 MENINGOCOCCAL (MENACTRA) Aged Out No longer eligible [...] Documents on File Type Date Recorded Patient Sign Painter Apprentice Expl 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 Advanced Directive
--- OUTSIDE RECORDS SUMMARY | 2022-12-23 01:45 | External Medical Summary | Summary of Care ---
Author Name Unknown Organization [place] [address] Phone Care Team Providers Care Approver Name Role Phone Donald Gonzales MD Primary Care Provide r Unavailable Reason for Visit * Reason Comments eRx-Medication Refill Encounter Details Date Type Department Care Team Description 12/02/[address] [facility] [address] [place] [address] Donald Gonzales MD [address] [place] [address] Hypothyroidism* Allergies Active Allergy Reactions Severity Noted Date [...] OTHER MEDS) 30 Tab 11 12/02/2017 Active levothyroxine (LEVOXYL) 100 MCG TabletIndications:H ypothyroidism TAKE 1 TABLET BY MOUTH DAILY. (AT LEAST 30 MIN PRIOR TO BREAKFAST OR OTHER MEDS) 30 Tab 5 05/26/2017 12/02/2017 Discontinued as of this encounter Active Problems [...] Telephone Encounter - Donald Gonzales MD - 12/02/2017 11:18 AM EDT Signed Prescriptions: Disp Refills levothyroxine (LEVOXYL) 100 MCG Tablet 30 Tab 11 Sig: TAKE 1 TABLET BY MOUTH DAILY. (AT LEAST 30 MIN PRIOR TO BREAKFAST OR OTHER MEDS) Authorizing Provider: DONALD GONZALES * Telephone Encounter - Brooklynn Goodwin LPN - 12/02/2017 11:14 AM EDT Pending Prescriptions: Disp Refills levothyroxine (LEVOXYL) 100 MCG Tablet [P*30 Tab 11 Sig: TAKE 1 TABLET BY MOUTH DAILY. (AT LEAST 30 MIN PRIOR TO BREAKFAST OR OTHER MEDS) * Telephone Encounter - Renetta De La Cruz LPN - 12/02/2017 10:58 AM EDT Pending Prescriptions: Disp Refills levothyroxine (LEVOXYL) 100 MCG Tablet [P*30 Tab 11 Sig: TAKE 1 TABLET BY MOUTH DAILY. (AT LEAST 30 MIN PRIOR TO BREAKFAST OR OTHER MEDS) * Telephone Encounter - Renetta De La Cruz LPN - 12/02/2017 10:57 AM EDT Formatting of this note may be different from the original. Pending Prescriptions: Disp Refills levothyroxine (LEVOXYL) 100 MCG Tablet [P*30 Tab 11 Sig: TAKE 1 TABLET BY MOUTH DAILY. (AT LEAST 30 MIN PRIOR TO BREAKFAST OR OTHER MEDS) Last Office Visit: 01/18/2017 Next Office Visit: No Future Appointments Last date the medication was ordered: 05/26/17 Patient Active Problem List Diagnosis Code Immunization, BCG Z23 PPD positive R76.11 Hypothyroidism E03.9 Labs: No CREAT components found No POTASSIUM components found TSH(uIU/mL) Samreen Dt/Tm Resulted Value Status 04/01/15 8:21A 04/01/15 2.66 FINAL No LDL components found No ALT components found Hemoglobin AIC Results: No HEMOGLOBIN, A1C components found in this encounter Plan of Treatment Health [...] of this encounter Visit Diagnoses Diagnosis Hypothyroidism - Primary Unspecified hypothyroidism in this encounter
--- OUTSIDE RECORDS SUMMARY | 2022-12-23 01:45 | External Medical Summary ---
Author Name Unknown Address Unknown Organization R:IT USE ONLY!!! Laboratory Report Ordering Provider Test Date Status MONIK SMYTH 01/12/2019 19:28:00 Final Observation Date Value Abnormality Reference Status Source 01/12/2019 19:28 CLEAN CATCH URINE Final Bacteria XXX Cult 01/14/2019 14:34 LESS THAN 10, 000 COLONIES/ML MIXED NORMAL TEA Final REPORT STATUS 01/14/2019 14:34 01/14/2019 FINAL Final Performing Location IT USE ONLY!!!
--- OUTSIDE RECORDS SUMMARY | 2022-12-23 01:45 | External Medical Summary | Summary of Care ---
Author Name Unknown Organization [place] [address] Care Team Providers Care Timekeeping Supervisor Name Role Phone Donald Adams MD Primary Care Provide r Reason for Visit * Reason Comments Physical-Exam fill out form Encounter Details Date Type Department Care Team Description 11/24/2018 Office Visit Family Practice [facility] 132 [facility] [place] [address] Leticia Gunter PA-C [facility] [id number] Physical exam, routine*; Acquired hypothyroidism; Hypothyroidism; Overweight (BMI 25.0-29.9) Allergies Active Allergy Reactions Severity Noted Date Comments Penicillins Diarrhea 02/04/2015 documented as of this encounter (statuses as of 11/24/2018) Medications Medication Sig Dispensed Refills Start Date End Date Status levothyroxine (LEVOXYL) 100 MCG TabletIndications :Hypothyroidism TAKE 1 TABLET BY MOUTH DAILY. (AT LEAST 30 MIN PRIOR TO BREAKFAST OR OTHER MEDS) 30 Tab 11 11/24/2018 Active levothyroxine (LEVOXYL) 100 MCG TabletIndications :Hypothyroidism TAKE 1 TABLET BY MOUTH DAILY. (AT LEAST 30 MIN PRIOR TO BREAKFAST OR OTHER MEDS) 30 Tab 11 12/02/2017 11/24/2018 Discontinued documented as of this encounter (statuses as of 11/24/2018) Active Problems Problem Noted Date Hypothyroidism 02/04/2015 Overview: Per OB, tsh=2.5 during PPD positive 01/12/2013 Overview: quantiferon test negative on 06/04/2008. See scanned records. Immunization, BCG 01/02/2013 documented as of this encounter (statuses as of 11/24/2018) Immunizations Name Administration Dates Next Due Seasonal [...] Reading Time Taken Comments Blood Pressure 122/80 11/24/2018 10:01 AM EDT Pulse 46 11/24/2018 10:01 AM EDT Temperature 36.6 C (97.9 F) 11/24/2018 10:01 AM E DT Respiratory Rate 16 11/24/2018 10:01 AM EDT Oxygen Saturation 97% 11/24/2018 10:01 AM EDT Inhaled Oxygen Concentration - - Weight 76.9 kg (169 lb 8 oz) 11/24/2018 10:01 AM EDT Height 167.6 cm (5' 6") 11/24/2018 10:01 AM EDT Body Mass Index 27.36 11/24/2018 10:01 AM EDT documented in this encounter Patient Instructions * Patient Instructions* Leticia Gunter PA-C - 11/24/2018 11:48 AM EDT BMI (Body Mass Index) is the number obtained by dividing a person's weight in kilograms by his or her height in meters squared. BMI is used in determining obesity. BMI is not used to determine a person's actual percentage of body fat, but it is a good tool to administrative law judge weight in terms of what is healthy and unhealthy. It is used to identify adults at increased risk for developing weight related medical problems. Estimated body mass index is 27.36 kg/m as calculated from the following: Height as of this encounter: 1.676 m (5' 6"). Weight as of this encounter: 76.9 kg (169 lb 8 oz). Overweight- BMI 25.0 to 29.9 kg/m2 - Overweight individuals are at risk for developing: * Heart disease * Stroke * Diabetes * High Blood Pressure * High Cholesterol * GERD (acid reflux) * Sleep Apnea * Osteoarthritis * Fatty Liver Disease * Certain Types of Cancers * Gout * Gall Bladder Disease - Weight loss has been shown to decrease weight related medical problems. - A 12-week weight management text message program is also available. Go to [employer] and seethe message under '[employer]' for more information and enrollment. Patient is Instructed to: Diet: * Limit total fat intake to no more than 40 grams per day (low fat diet). * Increase fruits and vegetables to 5 servings per day, combined. * Limited starches (breads, pasta, rice, potatoes, corn, cereals) to 4 servings per day. Avoid Calorie Containing Drinks: * No fruit juices, regular sodas or sweetened drinks. * Water is preferred - 64 ounces per day unless advised of a fluid restriction. * Diet sodas and drinks permitted. Keep Honest, Accurate Food logs: * www.[employer]ap[employer] * www.[employer] * If you bite it - write it! Weigh Yourself Weekly: * Morning is best. * Try to do this outside your home. * Have a friend/spouse remind you to weigh yourself, accountability to others helps. Perform 30 minutes of physical activity daily: * Can do all at once or 5 minutes 6 times per day * 8, 000-10,000 steps per day using a pedometer * Make it fun! documented in this encounter Progress Notes * Leticia Gunter PA-C - 11/24/2018 10:05 AM EDT SUBJECTIVE: CC: Physical exam HPI: Michael Orellana is a 33 year old female who presents for employer physical exam. Denies anycurrent medical problems or concerns. 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 She ran marathon this August. Has another planned. Runs about 50 miles/week. She had BCG vaccine, born in [place] . ROS: CONSTITUTIONAL: No fatigue and No fevers, sweats, or chills EYE: No recent significant change in vision, No eye pain, redness NECK: No lumps or masses, No swollen glands, No significant pain in neck PULMONARY: No shortness of breath and No recent change in breathing CARDIOVASCULAR: No chest pain, No shortness of breath, No dyspnea on exertion, No palpitations and No syncope GASTROINTESTINAL: No abdominal pain, No significant change in appetite and No nausea, vomiting, diarrhea, or constipation : No dysuria, No frequency and No discharge HEMATOLOGIC: No coagulation disorder, No anemia, No abnormal bleeding and No chills EXTREMITIES: No pain, redness or swelling on the joints NEUROLOGIC: Normal balance, No headaches PSYCHIATRIC: No depression and No anxiety PMH, PSH, Social history, Family history reviewed and updated HISTORY: No past medical history on file. Past Surgical History: Procedure Laterality Date DENTAL SURGERY PROCEDURE NEC wisdom teeth Social History Tobacco Use Smoking status: Never Smoker Smokeless tobacco: Never Used Substance Use Topics Alcohol use: No Drug use: No Family History Problem Relation Age of Onset Heart Disorder Grandmother (Paternal) Stroke Grandmother (Maternal) Outpatient Medications Marked as Taking for the 11/24/18 encounter (Office Visit) with Leticia Gunter PA-C Medication Sig levothyroxine (LEVOXYL) 100 MCG Tablet TAKE 1 TABLET BY MOUTH DAILY. (AT LEAST 30 MIN PRIOR TO BREAKFAST OR OTHER MEDS) Review of patient's allergies indicates: Allergen Reactions Penicillins Diarrhea Immunization History Administered Date(s) Administered Seasonal Influenza, Quadrivalent, No Preserve, 6 Mons & Above, IM 02/26/2018 Seasonal Influenza, Quadrivalent, No Preserve, IM 01/16/2015 TDAP (age 10 and older)(Boostrix) 10/21/2015 OBJECTIVE: BP 122/80 | Pulse 46 | Temp (Src) 97.9 (Tympanic) | Resp 16 | Ht 5' 6" (1.676m) | Wt 169 lbs 8 oz (76.885kg) | BMI 27.36 kg/m | BSA 1.89 m | SaO2 97% General appearance: healthy, alert, no distress, cooperative Skin: Skin color, texture, turgor normal. No rashes or lesions Head: Normocephalic., No masses, lesions, tenderness or abnormalities. Eyes: Conjunctivae and corneas clear. PERRL, EOM's intact. Ears: External ears normal. Canals clear. TM's normal Nose/Sinuses: Nares normal. Septum midline. Mucosa normal. No drainage. Oropharynx: Lips, mucosa, and tongue normal. Teeth and gums normal. Oropharynx clear Neck: neck supple, no adenopathy, thyroid symmetric, normal size Lungs: Lungs clear to auscultation Heart: RRR. No murmurs, clicks or rubs Abdomen: abdomen soft, non-tender, bowel sounds normal, no masses or hepatosplenomegaly Neuro: Gait normal. Reflexes normal and symmetric., Sensation grossly normal, power is 5/5, cranialnerves II through XII are intact Musculoskeletal: Spine ROM normal. Muscular strength intact. ASSESSMENT/PLAN: Physical exam, routine (Primary) Encouraged low fat diet and exercise. Avoid tobacco Seat beat use encouraged Smoke detector use encouraged. Form completed, ppd not required Acquired hypothyroidism - TSH WITH FREE T4 IF INDICATED; Future; Expected date: 11/24/2018 Hypothyroidism - levothyroxine (LEVOXYL) 100 MCG Tablet; TAKE 1 TABLET BY MOUTH DAILY. (AT LEAST 30 MIN PRIOR TO BREAKFAST OR OTHER MEDS) Overweight (BMI 25.0-29.9) Leticia Gunter PA-C [facility] [place] [address] Patient counseling on weight management given. documented in this encounter Nursing Notes * Erinn Rolon CMA - 11/24/2018 9:58 AM EDT The patient has been properly identified by confirmation of name and date of . Chief Complaint Patient presents with Physical-Exam fill out form documented in this encounter Plan of Treatment Upcoming Encounters Date Type Specialty Care Team Description 03/05/2019 Office Visit Family Medicine Donald Adams MD [address] [place] [address] [phone] Pending Results Name Type Priority Associated Diagnoses Date /Time TSH WITH FREE T4 IF INDICATED Lab Routine Acquired hypothyroidism 11/24/2018 10:26 AM EDT Scheduled Orders Name Type Priority Associated Diagnoses Orde r Schedule TSH WITH FREE T4 IF INDICATED Lab Routine Acquired hypothyroidism Expected: 11/24/2018 (Approximate), Expires: 11/24/2019 Health Maintenance Due Date Last Done Comments *DEPRESSION SCREENING,ANNUAL FOR PTS 12 AND OVER 05/22/2014 *TSH FOR THYROID MEDICATION MONITORING YEARLY 04/04/2016 Influenza Vaccine (FLU shot) (#1) 2018 02/26/2018, 01/16/2015 PAP SMEAR-EVERY 3 YRS,AGES 21-65 02/10/2019 02/11/2016, 02/19/2014 DTaP,Tdap,and Td Vaccines (2 - Td) 10/20/2025 10/21/2015 MENINGOCOCCAL (MENACTRA) Aged Out No longer eligible based on patient's age to complete this topic documented as of this encounter Implants Not on filedocumented as of this encounter Visit Diagnoses Diagnosis Physical exam, routine- Primary Routine general medical examination at a health care facility Acquired hypothyroidism Unspecified hypothyroidism Hypothyroidism Unspecified hypothyroidism Overweight (BMI 25.0-29.9) Overweight documented in this encounter Advance Directives Documents on File Type Date Recorded 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
--- OUTSIDE RECORDS SUMMARY | 2022-12-23 01:45 | External Medical Summary | Summary of Care ---
Author Name Unknown Organization [place] [address] Phone Care Team Providers Care Contact Center Analyst Name Role Phone Donald Adams MD Primary Care Provide r Encounter Details Date Type Department Care Team Description 03/01/2017 Scan Encounter Unspecified Department <No scans attached> Allergies Active Allergy Reactions Severity Noted Date Comments Penicillins Diarrhea 02/04/2015 as of this encounter Medications Prescription Sig. Disp. Refills Start Date End Date Status levothyroxine (LEVOXYL) 100 MCG TabletIndications:Hypot hyroidism TAKE 1 TABLET BY MOUTH DAILY. (AT LEAST 30 MIN PRIOR TO BREAKFAST OR OTHER MEDS) 30 Tab 5 11/25/2016 Active azithromycin (ZITHROMAX Z-JARROD) 250 MG TabletIndications:Acute streptococcal pharyngitis Take two tablets by mouth on first day, then 1 tablet daily until gone 6 Tab 0 01/18/2017 Active as of this encounter Active Problems [...] Not on file as of this encounter Plan of Treatment Health Maintenance Due Date Last Done Comments TETANUS EVERY 10 YRS-TDAP (BOOSTRIX/ADACEL) SUGGESTED IF NOT RECEIVED IN PAST 10/22/2001 *DEPRESSION SCREENING, ANU [place] FOR PTS 18 AND OVER 05/22/2014 *TSH FOR THYROID MEDICATION MONITORING YEARLY 04/04/2016 Influenza Vaccine (FLU shot) (#1) 2016 015 PAP SMEAR-EVERY 3 YRS,AGES 21-65 02/10/2019 02/11/20 16, 02/19/2014 as of this encounter Implants Not on fileas of this encounter Insurance Payer Benefit Plan / Group Subscriber ID Type Phone Address [employer] [address]MA [place] [id number] 1 as of this encounter
--- OUTSIDE RECORDS SUMMARY | 2022-12-23 01:45 | External Medical Summary | Summary of Care ---
Author Name Unknown Organization [place] [address] Care Team Providers Care Agile Scrum Master Name Role Phone Donald Adams MD Primary Care Provide r Reason for Visit * Reason Comments MyCode - Took Form To Consider Encounter Details Date Type Department Care Team Description 11/24/2018 Orders Only Outcomes Research Department [address] [place] [address] Everett Anguiano CHRA MyCode Nonconsent Documentation Allergies Active Allergy [...] Travel End documented as of this encounter Progress Notes * Everett Anguiano CHRA - 11/24/2018 9:56 AM EDT MyCode Nonconsent Documentation Michael Orellana was approached in the clinic regarding participation in the MyCode Project and did not consent. documented in this encounter Plan of Treatment Upcoming Encounters Date Type Specialty Care Team Description 03/05/2019 Office Visit Family Medicine Donald Adams MD 132 [facility] [place] [address] [phone] Health Maintenance Due Date Last Done Comments [...] Documents on File Type Date Recorded Patient Wrapper Opener Expl 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
--- OUTSIDE RECORDS SUMMARY | 2022-12-23 01:45 | External Medical Summary | Summary of Care ---
Author Name Unknown Organization [facility] [address] Phone Care Team Providers Care Sheet Ironworker Name Role Phone Donald Adams MD Primary Care Provide r Reason for Visit * Reason Comments INJURY Encounter Details Date Type Department Care Team Description 12/31/2017 Office Visit [place] [facility] [address] [facility] [place] [place] [id number] Jessica Marcelino, PA-C [address] [place] [address] MARLO Hernandez [address] Injury of toe on right foot, initial encounter* Allergies Active Allergy Reactions Severity Noted Date Comments Penicillins Diarrhea 02/04/2015 as of this encounter Medications Prescription Sig. Disp. Refills Start Date End Date Status levothyroxine (LEVOXYL) 100 MCG TabletIndications:H ypothyroidism TAKE 1 TABLET BY MOUTH DAILY. (AT LEAST 30 MIN PRIOR TO BREAKFAST OR OTHER MEDS) 30 Tab 11 12/02/2017 Active oxyCODONE (OXY IR) 5 MG CapsuleIndications: Injury of toe on right foot, initial encounter Take 1 Cap by mouth every 4 hours as needed for Pain, Severe for up to 3 days. 18 Cap 0 12/31/2017 01/03/2018 Active azithromycin (ZITHROMAX Z-JARROD) 250 MG TabletIndications:A cute streptococcal pharyngitis Take two tablets by mouth on first day, then 1 tablet daily until gone 6 Tab 0 01/18/2017 12/31/2017 Discontinued as of this encounter Active Problems [...] Not on file as of this encounter Last Filed Vital Signs Vital Sign Reading Time Taken Blood Pressure 134/72 12/31/2017 11:44 AM EDT Pulse 80 12/31/2017 11:44 AM EDT Temperature 36.8 C (98.2 F) 12/31/2017 1 1:44 AM EDT Respiratory Rate 16 12/31/2017 11:4 4 AM EDT Oxygen Saturation - - Inhaled Oxygen Concentration - - Weight 64.9 kg (143 lb 2 oz) 12/31/2017 11:44 AM EDT Height - - Body Mass Index 23.1 12/31/2017 11:44 AM EDT in this encounter Progress Notes * Jessica Marcelino PA-C - 12/31/2017 11:50 AM EDT Formatting of this note may be different from the original. Subjective Michael Orellana is a 32 year old female. Chief Complaint Patient presents with INJURY Nursing Notes: Adriane Barron LPN 12/31/17 1151 Signed Kicked door jam last evening. Pain in small toe of R foot. Bruised. HPI: Michael Orellana is a 32 year old female presenting to the office today for toe pain. She kicked a door jam last yesterday evening when she was taking her dog out. Since then, her toe has been severely painful and turned black and blue today. She has been taking Ibuprofen 400 mg whichupsets her stomach but does help with the pain temporarily. Patient states that Aleve and Tylenol upset her stomach as well, and she rarely takes them. Eating before taking the Ibuprofen helps some, but her stomach is still pretty sensitive. Results for orders placed or performed in visit on 01/18/17 ANCILLARY GRPA STREP Result Value Ref Range GRP A STREP EIA AT POS NEG - NEG PROCED CONTROL VALID? YES LOT NUMBER [id number] EXPIRATION DATE 02/22/18 PMH: Patient Active Problem List Diagnosis Code Immunization, BCG Z23 PPD positive R76.11 Hypothyroidism E03.9 Current Outpatient Prescriptions Medication Sig Dispense Refill oxyCODONE (OXY IR) 5 MG Capsule Take 1 Cap by mouth every 4 hours as needed for Pain, Severe for up to 3 days. 18 Cap 0 levothyroxine (LEVOXYL) 100 MCG Tablet TAKE 1 TABLET BY MOUTH DAILY. (AT LEAST 30 MIN PRIOR TO BREAKFAST OR OTHER MEDS) 30 Tab 11 Review of patient's allergies indicates: Allergen Reactions Penicillins Diarrhea Review of Systems Brief ROS per HPI Objective BP 134/72 | Pulse 80 | Temp (Src) 98.2 (Tympanic) | Resp 16 | Wt 143 lbs 2 oz (64.921kg) | BMI 23.1kg/m | BSA 1.74 m Physical Exam Right 5th toe severely ecchymotic with notable superficial hematoma on the medial portion. Note some ecchymoses into the dorsal forefoot as well. Slightly tender to the touch at the proximal 5th toe/base of the metatarsal. No bony tenderness further up into the foot/on the plantar surface. Ankle ROM intact. Unable to wiggle toes because of pain. Patient is clearly uncomfortable during exam. ASSESSMENT/PLAN: S99.921A Injury of toe on right foot, initial encounter (primary encounter diagnosis) Plan: Medical imagin. Xr toes 2 or more views Medications: 1. Oxycodone hcl 5 mg po caps Sig:Take 1 cap by mouth every 4 hours as needed for pain, severe for up to 3 days. X-Ray reviewed with patient. Appears to be a fracture in the distal and proximal phalanges. No metatarsal fracture noted. Will await radiology evaluation. Recommended: - Rest - Elevate affected area - Apply ice and cold compresses throughout the day - Ibuprofen (Advil) or Aleve throughout the day for a few days to help with inflammation. Take withfood to avoid upset stomach. -Oxycodone for severe pain- use sparingly. Do not drive while on medication. -Filiberto tape 4th and 5th toes together and use crutches until toe is feeling better, likely 4-6 weeks. - Call if symptoms persist. Patient understood and agreed with plan. Jessica Marcelino PA-C in this encounter Nursing Notes * Adriane Barron LPN - 12/31/2017 11:42 AM EDT Kicked door jam last evening. Pain in small toe of R foot. Bruised. in this encounter Plan of Treatment Upcoming Encounters Date Type Specialty Care Team Description 12/31/2017 Imaging Radiology Arrived Pending Results Name Priority Associated Diagnoses Date/Ti me XR TOES 2 OR MORE VIEWS Routine Injury of toe on right foot, initial encounter 12/31/2017 12:11 PM EDT Health Maintenance Due Date Last Done Comments DTaP,Tdap,and Td Vaccines (1 - Tdap) 10/22/2002 *DEPRESSION SCREENING, ANNUA L FOR PTS 18 AND OVER 05/22/2014 *TSH FOR THYROID MEDICATION MONITORING YEARLY 04/04/2016 Influenza Vaccine (FLU shot) (#1) 2017 015 PAP SMEAR-EVERY 3 YRS,AGES 21-65 02/10/2019 02/11/20 16, 02/19/2014 as of this encounter Implants Not on fileas of this encounter Visit Diagnoses Diagnosis Injury of toe on right foot, initial encounter - Primary in this encounter"
--- OUTSIDE RECORDS SUMMARY | 2022-12-23 01:45 | External Medical Summary ---
Author Name Unknown Address [facility] [place] [address] Phone Organization K01:[facility] [address] [address] Laboratory Report Ordering Provider Test Date Status JANET BLANCA MD [id number] Final Obs # Observation Date Value Abnormality Reference Status Performing Location 0 TSH [id number] 5.92 Above high normal 0.27-4.2 Final [facility] [address] [facility] [address] 1 FREE T4 REFLEXIVE [id number] 1.14 0.7-1.7 Final [facility] [address] [facility] [address]
--- OUTSIDE RECORDS SUMMARY | 2022-12-23 01:45 | External Medical Summary | Summary of Care ---
Author Name Unknown Organization [place] [address] Phone Care Team Providers Care Household Refrigerator Mechanic Name Role Phone Donald Adams MD Primary Care Provide r Reason for Visit * Reason Comments ORDER REQUEST Encounter Details Date Type Department Care Team Description 12/31/2017 Telephone Internal Medicine [address] [address] Jessica Marcelino PA-C [address] [place] [address] [place] [address] ORDER REQUEST Allergies Active Allergy Reactions Severity Noted Date [...] encounter Miscellaneous Notes * Telephone Encounter - Jessica Marcelino PA-C - 12/31/2017 4:35 PM EDT Spoke with patient. She will pick some up at [facility] * Telephone Encounter - Kizzy Dixon OSA - 12/31/2017 1:04 PM EDT The patient was seen earlier and told that if she needs an order for crutches to call back. The patient is requesting an order for crutches. Please advise at [phone]. in this encounter Plan of Treatment Health Maintenance Due Date Last Done Comments DTaP,Tdap,and Td Vaccines (1 - Tdap) 10/22/2002 *DEPRESSION SCREENING, ROBYUA L FOR PTS 18 AND OVER 05/22/2014 *TSH FOR THYROID MEDICATION MONITORING YEARLY 04/04/2016 Influenza Vaccine (FLU shot) (#1) 2017 015 PAP SMEAR-EVERY 3 YRS,AGES 21-65 02/10/2019 02/11/20 16, 02/19/2014 as of this encounter Implants Not on fileas of this encounter Visit Diagnoses Diagnosis Foot injury - Primary Injury, other and unspecified, knee, leg, ankle, and foot in this encounter
--- OUTSIDE RECORDS SUMMARY | 2022-12-23 01:45 | External Medical Summary | Summary of Care ---
Author Name Unknown Organization [place] [address] Care Team Providers Care Business Relations Manager Name Role Phone Donald Adams MD Primary Care Provide r Encounter Details Date Type Department Care Team Description 01/14/2019 Telephone Careworks [facility] [address] [place] [address] SharerAmber PA-C [address] [place] [address] [phone] Allergies Active Allergy Reactions Severity Noted Date Comments Penicillins Diarrhea 02/04/2015 documented as of this encounter (statuses as of 01/15/2019) Medications Medication Sig Dispensed Refills Start Date End Date Status levothyroxine (LEVOXYL) 100 MCG TabletIndications:Hy pothyroidism TAKE 1 TABLET BY MOUTH DAILY. (AT LEAST 30 MIN PRIOR TO BREAKFAST OR OTHER MEDS) 30 Tab 11 11/24/2018 Active sulfamethoxazole-tri methoprim DS (BACTRIM DS) 800-160 MG per tabletIndications:Ur inary tract infection with hematuria, site unspecified Take 1 Tab by mouth 2 times a day for 3 days. Until gone 6 Tab 0 01/12/2019 01/15/2019 Active Phenazopyridine HCl (PYRIDIUM) 200 MG TabletIndications:Ur inary tract infection with hematuria, site unspecified Take 1 Tab by mouth 3 times a day as needed for Pain. After meals for pain with urination 6 Tab 0 01/12/2019 Active documented as of this encounter (statuses as of 01/15/2019) Active Problems Problem Noted Date Hypothyroidism 02/04/2015 Overview: Per OB, tsh=2.5 during PPD positive 01/12/2013 Overview: quantiferon test negative on 06/04/2008. See scanned records. Immunization, BCG 01/02/2013 documented as of this encounter (statuses as of 01/15/2019) Immunizations Name Administration Dates Next Due Seasonal [...] encounter Miscellaneous Notes * Telephone Encounter - Jolie Hudson TECH - 01/15/2019 12:48 PM EDT Incoming call from patient. Made aware. Done. * Telephone Encounter - Annabel Patiño LPN - 01/15/2019 11:36 AM EDT LMOM FOR RETURN CALL * Telephone Encounter - Amber Chavez PA-C - 01/14/2019 6:01 PM EDT Please notify patient that urine culture showed no significant growth so inconsistent with a UTI.If improving on antibiotics prescribed she can complete the course. If not discontinue antibiotics and follow-up with PCP for persistent symptoms to consider additional work-up documented in this encounter Plan of Treatment [...] Documents on File Type Date Recorded Patient Recovery Assistant Expl 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 Advanced Directive
--- OUTSIDE RECORDS SUMMARY | 2022-12-23 01:45 | External Medical Summary | Summary of Care ---
Author Name Unknown Organization [place] [address] Care Team Providers Care Alteration Worker Name Role Phone Donald Adams MD Primary Care Provide r Unavailable Encounter Details Date Type Department Care Team Description 10/13/2018 Scan Encounter Unspecified Department <No scans attached> Allergies Active Allergy Reactions Severity Noted Date Comments Penicillins Diarrhea 02/04/2015 documented as of this encounter (statuses as of 10/16/2018) Medications Medication Sig Dispensed Refills Start Date End Date Status levothyroxine (LEVOXYL) 100 MCG TabletIndications:Hyp othyroidism TAKE 1 TABLET BY MOUTH DAILY. (AT LEAST 30 MIN PRIOR TO BREAKFAST OR OTHER MEDS) 30 Tab 11 12/02/2017 Active documented as of this encounter (statuses as of 10/16/2018) Active Problems Problem Noted Date Hypothyroidism 02/04/2015 Overview: Per OB, tsh=2.5 during PPD positive 01/12/2013 Overview: quantiferon test negative on 06/04/2008. See scanned records. Immunization, BCG 01/02/2013 documented as of this encounter (statuses as of 10/16/2018) Immunizations Name Administration Dates Next Due Seasonal Influenza, Quadriva lent, No Preserve, 6 Mons & Above, IM 02/26/2018 Seasonal Influenza, Quadrivalent, No Preserve, I M 01/16/2015 documented as of this encounter Social History [...] Vaccines (1 - Tdap) 10/22/2002 *DEPRESSION SCREENING, ANU [place] FOR PTS 18 AND OVER 05/22/2014 *TSH FOR THYROID MEDICATION MONITORING YEARLY 04/04/2016 PAP SMEAR-EVERY 3 YRS,AGES 21-65 02/10/2019 02/11/2016, 02/19/2014 Influenza Vaccine (FLU shot) Completed 07/2017, 01/16/2015 MENINGOCOCCAL (MENACTRA) Aged Out No longer eligible based on patient's age to complete this topic documented as of this encounter Implants Not on filedocumented as of this encounter Advance Directives Documents on File Type Date Recorded Patient Manager Auto Expl 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
--- OUTSIDE RECORDS SUMMARY | 2022-12-23 01:45 | External Medical Summary | Summary of Care ---
Author Name Unknown Organization [place] [address] Care Team Providers Care Polymerization Oven Operator Name Role Phone Donald Adams MD Primary Care Provide r Reason for Visit * Reason Comments Hematuria Encounter Details Date Type Department Care Team Description 01/12/[facility] [address] [place] [address] SharerAmber PA-C [address], [place] [phone] Urinary tract infection with hematuria, site unspecified*; Urinary frequency Allergies Active Allergy Reactions Severity Noted Date Comments Penicillins Diarrhea 02/04/2015 documented as of this encounter (statuses as of 01/12/2019) Medications Medication Sig Dispensed Refills Start Date [...] as of this encounter (statuses as of 01/12/2019) Active Problems Problem Noted Date Hypothyroidism 02/04/2015 Overview: Per OB, tsh=2.5 during PPD positive 01/12/2013 Overview: quantiferon test negative on 06/04/2008. See scanned records. Immunization, BCG 01/02/2013 documented as of this encounter (statuses as of 01/12/2019) Immunizations Name Administration Dates Next Due Seasonal [...] Sign Reading Time Taken Comments Blood Pressure 140/86 01/12/2019 6:42 PM EDT Pulse 72 01/12/2019 6:42 PM EDT Temperature 37.3 C (99.2 F) 01/12/2019 6:42 PM ED T Respiratory Rate 16 01/12/2019 6:42 PM EDT Oxygen Saturation 100% 01/12/2019 6:42 PM EDT Inhaled Oxygen Concentration - - Weight 80.5 kg (177 lb 6.4 oz) 01/12/2019 6:42 P M EDT Height 167.6 cm (5' 6") 01/12/2019 6:42 PM EDT Body Mass Index 28.63 01/12/2019 6:42 PM EDT documented in this encounter Patient Instructions * Patient Instructions* Sharer, Amber Chung PA-C - 01/12/2019 7:01 PM EDT -Please drink plenty of fluids -Please limit drinks that can cause dehydration ( alcohol, iced tea, etc.) - Clinic will call with urine culture results - Pyridium can change color of urine to bright orange/yellow and can stain clothing Follow-up with PCP if not improving within 2-3 days, sooner if worsening (i.e. Fevers, shaking chills, vomiting, back pain) despite above treatment plan documented in this encounter Progress Notes * Amber Chavez PA-C - 01/12/2019 6:48 PM EDT CONVENIENT CARE PROGRESS NOTE Michael Orellana is a 33 year old female who presents with urinary tract symptoms. Patient complains of dysuria, urinary frequency, and hematuria. Patient was accompanied by Self. Reports + hx of UTIs in the past ( last UTI one year ago). Denies hx of kidney stones. Denies fever, chills, upper back pain. No chance of . Denies new sexual partners or concern for STD's. Denies vaginal itching, discharge or bleeding. ROS: See HPI HISTORY: No past medical history on file. 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 Social Needs Financial resource strain: Not on file Food insecurity: Worry: Not on file Inability: Not on file Transportation needs: Medical: Not on file Non-medical: [...] file Gets together: Not on file Attends methodist service: Not on file Active member of [...] file Social History Narrative Not on file Current Outpatient Medications Medication Sig Dispense Refill [...] Grandfather (Maternal) No Known Problems Grandfather (Paternal) OBJECTIVE: BP 140/86 | Pulse 72 | Temp (Src) 99.2 (Tympanic) | Resp 16 | Ht 5' 6" (1.676m) | Wt 177 lbs 6.4 oz(80.468kg) | BMI 28.63 kg/m | BSA 1.94 m | SaO2 100% | LMP 12/24/2018 Wt Readings from Last 1 Encounters: 01/12/19 80.5 kg (177 lb 6.4 oz) General appearance: awake, alert, no apparent distress Abdominal Exam: back: no CVA tenderness and abd: +suprapubic tenderness to palpation, no R/R/G, +BS Respiratory: clear to auscultation, no rhonchi, no wheezes and no crackles Heart: regular rate, regular rhythm, no murmurs , no rubs and no gallops Skin/Integumentary: skin color, texture, turgor are normal, no rashes or significant lesions Results for orders placed or performed in visit on 01/12/19 SITE DIP,DIPSTICK ONLY([id number]) Result Value Ref Range COLOR, UA red (A) yellow - pasha CLARITY, UA clear clear - clear GLUCOSE, UA neg neg - neg BILIRUBIN, UA neg neg - neg KETONE, UA neg neg - neg SPECIFIC GRAVITY 1.005 1.003 - 1.030 BLOOD, UA large (A) neg - neg PH, UA 5.0 5.0 - 7.5 PROTEIN, UA moderate (A) neg - neg UROBILINOGEN, UA normal normal - normal NITRITE, UA neg neg - neg ESTERASE, UA moderate (A) neg - neg Patient Instructions -Please drink plenty of fluids -Please limit drinks that can cause dehydration ( alcohol, iced tea, etc.) - Clinic will call with urine culture results - Pyridium can change color of urine to bright orange/yellow and can stain clothing Follow-up with PCP if not improving within 2-3 days, sooner if worsening (i.e. Fevers, shaking chills, vomiting, back pain) despite above treatment plan Assessment: Urinary tract infection with hematuria, site unspecified (Primary) - sulfamethoxazole-trimethoprim DS (BACTRIM DS) 800-160 MG per tablet; Take 1 Tab by mouth 2 times a day for 3 days. Until gone - Phenazopyridine HCl (PYRIDIUM) 200 MG Tablet; Take 1 Tab by mouth 3 times a day as needed for Pain. After meals for pain with urination Urinary frequency - SITE DIP,DIPSTICK ONLY([id number]) - CULTURE QUANT URINE Amber Chavez PA-C [address] [address] documented in this encounter Nursing Notes * Rose Cotton LPN - 01/12/2019 6:44 PM EDT Michael Orellana,is a 33 year old female, who presents to the walk in clinic today c/o hematuria,frequency since this morning. Did not use any OTC meds. documented in this encounter Plan of Treatment Upcoming Encounters Date Type Specialty Care Team Description 03/05/2019 Office Visit Family Medicine Donald Adams MD [address] [place] [address] [place] [address] Scheduled Orders Name Type Priority Associated Diagnoses Orde r Schedule CULTURE QUANT URINE Lab Routine Urinary frequency Ordered: 01/12/2019 Health Maintenance Due Date Last Done Comments [...] Procedure Name Priority Date/Time Associated Diagnosis Comments SITE DIP,DIPSTICK ONLY([id number]) Routine 01/12/2019 6:56 PM EDT Urinary frequency documented in this encounter Results * SITE DIP,DIPSTICK ONLY([id number]) (01/12/2019 6:56 PM EDT) COLOR, UA red(A) yellow - pasha CLARITY, UA clear clear - clear GLUCOSE, UA neg neg - neg BILIRUBIN, UA neg neg - neg KETONE, UA neg neg - neg SPECIFIC GRAVITY 1.005 1.003 - 1.030 BLOOD, UA large(A) neg - neg PH, UA 5.0 5.0 - 7.5 PROTEIN, UA moderate(A) neg - neg UROBILINOGEN, UA normal normal - normal NITRITE, UA neg neg - neg ESTERASE, UA moderate(A) neg - neg Specimen Urine documented in this encounter Visit Diagnoses Diagnosis Urinary tract infection with hematuria, site unspecified- Primary Urinary frequency documented in this encounter Advance Directives Documents on File Type Date Recorded Patient Plywood Stock Grader Expl 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 Advanced Directive
[2022-12-23] MEDS: MoRPHine SULFATE 4 MG/ML 1 ML CARP\\VIAL IV PRN (02:59)
[2022-12-23] MEDS: D5W AND 1/2NSS 1,000 ML IV SCH (03:00)
[2022-12-23] MEDS: oxyCODONE/ACETAMINOPHEN 5mg/325mg TAB PO PRN ×2 (05:47→10:58)
[2022-12-23] MEDS ORDERED: LEVOTHYROXINE SODIUM 100 MCG TABLET PO SCH (06:30)
--- NOTE | 2022-12-23 07:26 | Surgery Progress Note ---
Date of Service December 23, 2022 Assessment & Plan (1) Encounter for cosmetic procedure: Plan: Doing well. D/c home today, office follow-up tomorrow. Void before dc home. Admission and Anticipated Discharge Date Admission Date: December 22, 2022 Subjective Resting comfortably in bed. Leon removed but has not voided yet. Pain controlled with medication. Physical Exam Physical Exam: bilat drains holding suction, scant serosang output. no saturation on gauze dressing Results & Data Vital Signs (Past 12 Hours) Vital Signs Temp Pulse Resp BP Pulse Ox O2 Del Method 12/23/22 03:17 36.8 C 57 L 16 122/77 97 Room Air 12/22/22 22:57 37 C 62 16 128/79 96 Room Air 12/22/22 21:00 36.5 C 60 16 145/90 H 100 Room Air 12/22/22 22:11 Room Air PG Care Time/CCT Total # of Minutes Spent Total Time Spent with Patient: Total time spent is greater than 50% in coordination of care (as documented) at patient's floor/unit and/or counseling patient: Coding Level of Care Code 95958 Post Operative Follow-Up Diagnoses Encounter for cosmetic procedure Z41.1
[2022-12-23] MEDS: CHECK SCOPOLAMINE PATCH PLACEMENT SCH (07:48)
[2022-12-23 08:17] VITALS: BP 143/83; PULSE 63; TEMP 98.5; O2SAT 96
[2022-12-23] MEDS ORDERED: MULTIVITAMIN TAB PO SCH (09:00)
--- NOTE | 2022-12-24 08:56 | Discharge Summary ---
Date of Service December 24, 2022 Admission HPI Per Admitting Provider See admission H&P Admission Exam Per Admitting Provider see admission H&P Principal Diagnosis encounter for cosmetic surgery Discharge Exam bilat drains holding suction, scant serosang output. no saturation on gauze dressing Discharge Data Allergies Allergy/AdvReac Type Severity Reaction Status Date / Time No Known Allergies Allergy Verified 12/22/22 05:59 Procedures Performed Operation Date: 12/22/22 07:00 Actual Procedures p Abdominoplasty with Suction-Assisted Lipectomy(Not Applicable) - Zoila Atwood MD s Bilateral Mastopexy(Not Applicable) - Zoila Atwood MD Ordered Studies 12/22/22 05:00 US - OR guided needle placemen Routine Hospital Course (1) Encounter for cosmetic procedure: Patient presented to [facility] for cosmetic surgery. She was taken to the OR and underwent bilateral mastopexy and abdominoplasty. There were no intraoperative complications. She was taken to recovery and transferred to med/surg for observation. On POD#1, she was feeling well. She was tolerating a regular diet and ambulating. She was able to void after catheter was removed. On exam, her vitals were stable. Her incisions were CDI. Her drains had appropriate output. She was discharged home with instructions to follow-up in the office in one day. Total Time Total Time Spent Total Time Spent (In Minutes): 15 Total Time Includes: Examination of the Patient, Medication Reconciliation and Communication With Other Providers Discharge Plan Discharge Items Patient Disposition: Home - Self-Care Reason For Visit: Encounter for Cosmetic Surgery Discharge Diagnosis: s/p mastopexy and abdominoplasty Activity: As commented below Non-emergency contact: Surgeon Call non-emergency contact if: you have any medication questions, your pain is worsening, you have a fever, your wound has increased redness and your wound has increased drainage Follow-up/Referrals: Jannette Garcia PA-C [Physician Network Control Technician] - 12/24/22 10:30 am Claudia Morales MD [Primary Care Provider] - Diet: Regular Addtl Attending Provider Instructions: ACTIVITY RECOMMENDATIONS: __Normal activities _x_No bending, lifting or straining. Do not stand or lay flat until it is easily comfortable __No driving __Driving allowed when you are off pain medications _x_Walking permitted __You should have help at home for ___ days DRESSINGS: __No dressings required _x_Keep dressings dry/in place until first office visit. Binder and bra must stay in place __Remove dressings ___ and leave dressings off __Apply ice ___ days __Remove dressings and reapply garment __Apply antibiotic ointment (Bacitracin, Neosporin, etc) to wounds 3-4 times/day for 10 days BATHING: _x_Keep dressings dry _x_Sponge bathing permitted away from surgical dressings __Showering permitted _x_No swimming, hot tubs or soaking in a tub MEDICATIONS: Resume previous medications unless instructed otherwise by your surgeon. _x_Do not use aspirin, Motrin, Advil or Ibuprofen as these may promote bleeding. Please use Tylenol. _x_Prescription(s) provided: pain medication was provided at your last office visit OTHER INSTRUCTIONS: _x_Record drain output 2-3 times per day SPECIAL CARE INSTRUCTIONS: * It is normal to have a mild fever after surgery. If your temperature is higher than 101.5 degrees F, please call the office at [phone]. * Constipation is a typical side effect of pain medication. An [id number] stool softener will help relieve this. * Leaking around surgical drains may occur and should not cause concern. Sometimes these drains become clogged. If this happens, remove the bulb and milk the clot out of the tube, then replace the bulb. * Drainage from wounds after liposuction is normal and should be expected. Garments will become soiled. You should protect furniture and bedding. This drainage should mostly subside within 2-3 days. Leave garments in place unless instructed to remove them. * If you have unusual drainage from a wound or are concerned you have an infection or have any questions or concerns, please call the office at [phone]. FOLLOW UP VISIT: If not already scheduled, please call the office, , when you return home after surgery to schedule an appointment to be seen in __1_ days. Pending Studies at Discharge: Yes Stand-Alone Forms: [facility] Medications and DC Order Prescriptions: Continued oxycodone-acetaminophen [Endocet] 5-325 mg tablet 1 tab PO Q4H PRN (Reason: pain) Qty: 18 0RF Rx Instructions: initial therapy Dr. Atwood [id number] diazepam [Valium] 2 mg tablet 2 mg PO Q6H PRN (Reason: anxiety) Qty: 20 0RF levothyroxine 100 mcg tablet 100 mcg PO DAILYBB Discharge Orders: Discharge Order (Routine); Ordered 12/23/22 Ordered By: Jannette Marie/Other Patient Handouts: Breast Surg Post Op Exercises Admission Data Admit Date/Time: 12/22/22 12:57 Attending Provider: Zoila Atwood Admit Provider: Zoila Atwood Primary Care Provider: Claudia Morales Other Interventions: Discharge Summary Assessment (RN) Last Done: 12/23/22 10:24 Coding Level of Care Code 48598 OBS Care - Discharge Diagnoses Encounter for cosmetic procedure Z41.1
== END 2022-12-23 11:33 | disposition home or self-care (01) ==
LOC: ASU 05:27 → 3N 05:27
DX: Z79.890 Hormone replacement therapy; Z41.1 Encounter for cosmetic surgery; E03.9 Hypothyroidism, unspecified